=== PATIENT | male | born 1960 | race Two or more races ===

== ENCOUNTER 2024-05-08 10:57 | Emergency (ER) | payer OTHER ==
[~2024-05-08] VITALS: Ht 162.6 cm; Wt 82.5 kg
--- NOTE | 2024-05-08 12:03 | DVH ---
CLINICAL HISTORY: 64 years old, Male; LEFT RIB. No other clinical information provided. TECHNIQUE: AP and oblique views of the left ribs were obtained. COMPARISON: None FINDINGS: No acute fracture identified in the left ribs. No pneumothorax, pleural effusion, or other abnormality identified in the left alonso thorax. Left lung appears clear. IMPRESSION: No evidence of acute fracture in the left ribs.
[2024-05-08 12:06] VITALS: BP 144/73; PULSE 94; RESP 15; TEMP 99.6; O2SAT 96
--- NOTE | 2024-05-08 12:12 | DVH ---
XY L HUMERUS XRAY, INDICATION: LEFT ARM TECHNICAL DATA: Frontal and lateral views were obtained of the left humerus. COMPARISON: None FINDINGS: There is no osseous abnormality. Soft tissues are normal. IMPRESSION: No acute fracture or dislocation.
[2024-05-08] MEDS ORDERED: IBUP1TAB5 PO (13:05)
--- NOTE | 2024-05-08 13:07 | ED.PDOC ---
Musculoskeletal HPI Comments This is a 64-year-old male who fell on Thursday off the ladder while he was working in the garage. He landed on the left side on his left ribs and left upper arm. Patient states there was no loss of consciousness at all. Mainly complains of pain when moving his left arm as the rib pain is just under his left axilla. Chief Complaint: Upper Extremity Time Seen by MD: 11:48 Primary Care Provider: ROLAND STARKEY Reviewed Notes: Nurses Notes, Medications, Allergies Allergies: Coded Allergies: NO KNOWN ALLERGIES (Unverified , 05/08/24) Information Source: Patient Mode of Arrival: Ambulatory Past Medical History PAST MEDICAL HISTORY: DM Surgical History (Other): Neck surgery Family History Family History: Reviewed,noncontributory to illness Social History Smoker: Non-Smoker Alcohol: Occasionally Drugs: Denies Drug Use Lives In: Home Respiratory: reports: others (rib pain left side) Musculoskeletal: reports: others (left arm pain) Physical Exam General Appearance: No Apparent Distress, Normal HEENT: Normal ENT Inspection, PERRL/EOMI, Pharynx Normal, TMs Normal Neck: Non-Tender Respiratory: Lungs Clear, Normal Breath Sounds, Other (Pain on the left anterior ribs no bruising) Cardiovascular: Regular Rate/Rhythm Breast Exam: Deferred Gastrointestinal: Non Tender, Normal Bowel Sounds Genitalia: Deferred Pelvic: Deferred Rectal: Deferred Extremities: Normal inspection, Tender (Left upper arm) Neurologic: Alert, No Motor Deficits, Normal Mood Cerebellar Function: Normal Reflexes: NOT DONE Skin: Dry, Warm Lymphatic: No Adenopathy Was a procedure done? Was a procedure done?: No Differential Diagnosis EXT Differential Diagnosis: Cellulitis, Compartment Syndrome, Fracture X-Ray, Labs, Meds, VS Vital Signs Date Time Temp Pulse Resp B/P (MAP) Pulse Ox O2 Delivery O2 Flow Rate FiO2 05/08/24 12:06 94 15 96 Room Air 05/08/24 12:06 99.6 94 15 144/73 (96) 96 99.6 05/08/24 11:10 99.6 94 15 144/73 (96) 96 X-Ray, Labs, Meds, VS Comment Patient seen and examined by me. Patient's x-rays were done in triage was do not show any fracture. I stressed the importance of him to to continue to take deep breaths to help with pain in his ribs and also to prevent him from getting pneumonia. I will send him home on some strong anti-inflammatories.. ORDERING PHYSICIAN: TRISH FRY MD PROCEDURE(s): LRIBS - L RIB X RAY REASON: LEFT RIB ORDER NUMBER(s): [id number], ACCESSION NUMBER(s): [id number] CLINICAL HISTORY: 64 years old, Male; LEFT RIB. No other clinical information provided. TECHNIQUE: AP and oblique views of the left ribs were obtained. COMPARISON: None FINDINGS: No acute fracture identified in the left ribs. No pneumothorax, pleural effusion, or other abnormality identified in the left alonso thorax. Left lung appears clear. IMPRESSION: No evidence of acute fracture in the left ribs. RING PHYSICIAN: TRISH FRY MD PROCEDURE(s): LHUM - L HUMERUS XRAY REASON: LEFT ARM ORDER NUMBER(s): [id number], ACCESSION NUMBER(s): [id number] XY L HUMERUS XRAY, INDICATION: LEFT ARM TECHNICAL DATA: Frontal and lateral views were obtained of the left humerus. COMPARISON: None FINDINGS: There is no osseous abnormality. Soft tissues are normal. IMPRESSION: No acute fracture or dislocation. Time of 1ST Reevaluation: 13:02 Reevaluation 1ST: Improved Patient Education/Counseling: Diagnosis, Treatment, Prognosis, Need For Follow Up Family Education/Counseling: No Family Present Departure 1 Departure Time of Disposition: 13:02 Impression: Primary Impression: Contusion of rib on left side Additional Impression: Contusion of left arm Disposition: 01 HOME / SELF CARE / HOMELESS Condition: Good Additional Instructions: It is normal for you to have soreness in your arm and then your left ribs. You have no broken bones Please take the anti-inflammatories as directed this will help your pain Continue to take deep breaths to prevent getting a respiratory infection Move your left arm for prevent it from becoming stiff e-Prescriptions Ibuprofen Micronized (Ibuprofen) 600 Mg Tab 600 MG PO Q6HPRN PRN for 5 Days, #20 TAB Prov: KYREE DAUGHERTYP 05/08/24 Discharged With: Self Critical Care Note Critical Care Time?: No Stability Stability form required: KYREE Heredia May 08, 2024 13:07
== END 2024-05-08 13:07 | disposition home or self-care (01) ==
LOC: ER 10:57
DX: S40.022A Contusion of left upper arm, initial encounter (principal); S20.212A Contusion of left front wall of thorax, initial encounter; E11.9 Type 2 diabetes mellitus without complications; Z98.890 Other specified postprocedural states; W11.XXXA Fall on and from ladder, initial encounter; Y93.89 Activity, other specified; Y92.89 Other specified places as the place of occurrence of the external cause; Y99.8 Other external cause status
CPT/HCPCS: 71101; 73060

== ENCOUNTER → 2024-07-15 | Day surgery (SDC) | payer OTHER ==
[2024-07-13 15:07] LABS: Basophils # (auto) 0.1 10 ^3/uL (0-0.2); Basophils % (auto) 1.4 % (0.0-2.0); Eosinophils # (auto) 0.6 10 ^3/uL (0-0.8); Eosinophils % (auto) 6.9 % (0.0-7.0); Hematocrit 44.1 % (41.0-53.0); Hemoglobin 15.2 g/dL (13.5-17.5); Mean Corpuscular Hemoglobin 29.1 pg (28.0-32.0); Mean Corpuscular Hgb Conc. 34.5 g/dL (32.0-36.0); Mean Corpuscular Volume 84.5 fL (80.0-100.0); Monocytes % (auto) 11.9 % (0.0-12.0); Neutrophils # (auto) 4.4 10 ^3/uL (1.6-8.6); Neutrophils % (auto) 54.8 % (37.0-80.0); Nucleated Red Blood Cells % 0.1 %; Platelet Count (auto) 215 10^3/uL (140-450); Red Blood Cells 5.22 10^6/uL (4.5-5.90); Red Cell Distribution Width 13.5 % (11.8-14.3)
[2024-07-13 15:37] LABS: INR 0.97 (0.9-1.15); Partial Thromboplastin Time 25.6 SEC (24.5-34.5); Prothrombin Time 10.3 sec (9.3-11.8)
[2024-07-13 16:18] LABS: Alanine Aminotransferase 26 U/L (7-40); Albumin 4.6 g/dL (3.2-4.8); Alkaline Phosphatase 92 U/L (46-116); Anion Gap 8 (5-15); Aspartate Aminotransferase 25 U/L (13-40); BUN/Creatinine Ratio 13.7 (10.0-20.0); Bilirubin, Total 0.4 mg/dL (0.2-1.0); Blood Urea Nitrogen 13 mg/dL (9-23); Calcium 9.6 mg/dL (8.7-10.4); Carbon Dioxide 26 mmol/L (20-31); Chloride 106 mmol/L (98-107); Glucose 124 mg/dL (74-106); Potassium 3.7 mmol/L (3.5-5.1); Sodium 140 mmol/L (136-145)
[~2024-07-15] VITALS: Ht 162.6 cm; Wt 81.6 kg
[~2024-07-15] MED LIST: ACYC400T16 PA; ATOR-507 PO; CHOLCAP4 PO; IBUP-1454 PO; OMEP20TA PO; SODIUM CHLORIDE LOCK 10 ML ONE
[2024-07-15 10:42] VITALS: PULSE 73; RESP 19; O2SAT 96
[2024-07-15] MEDS: fentaNYL CITRATE 100 MCG/2 ML VL ONE (10:47)
[2024-07-15] MEDS: MIDAZOLAM HCL 5 MG/ML-1ML VIAL ONE (10:47)
[2024-07-15] MEDS: diphenhdrAMINE HCL 50 MG/1 ML VL ONE (10:47)
[2024-07-15 11:08] VITALS: PULSE 74; RESP 15; O2SAT 98
--- NOTE | 2024-07-15 11:10 | DVHOP2 ---
Operative Report DATE OF OPERATION: 07/15/24 PROCEDURE: Colonoscopy colonoscopy with snare polypectomy. PREOPERATIVE INDICATION: The patient is a 64 -year-old male undergoing colonoscopy for colon cancer screening POSTOPERATIVE DIAGNOSES: 1. 5-6 mm benign-appearing rectal polyp was seen and removed via hot snare polypectomy 2. There was a 2-3 mm benign-appearing descending colon polyp that was seen and removed by cold biopsy forceps 3. There was mild sigmoid diverticular disease with sigmoid muscular hypertrophy and diverticular associated sigmoiditis 4. Trace internal hemorrhoids otherwise normal examination up to the cecum and terminal ileum PROCEDURE PERFORMED BY: Russ Stubbs M.D. SCOPE: Olympus videocolonoscope. ASA CLASS: 2. PREOPERATIVE MEDICATIONS: Versed 3 mg, Fentanyl 75 mcg, Benadryl 50 mg PROCEDURE IN DETAIL: After obtaining an informed consent, the patient was placed on left lateral decubitus position. He was then sedated with the above medications. A rectal examination was performed that was normal. The colonoscope was then passed through the anus into the rectosigmoid and through the descending, transverse, and ascending colon up to the cecum with visualization of the appendiceal orifice, base of the cecum and the ileocecal valve. The colonoscope was then withdrawn. The distal 5-10 cm of the terminal ileum were normal No masses or colitis were seen. Patient had a 2-3 mm benign-appearing descending colon polyp which was removed by cold biopsy forceps There was mild sigmoid diverticular disease with sigmoid muscular color hypertrophy and associated sigmoiditis On retroflexion he had trace internal hemorrhoids. In the rectum there was a 5- 6 mm benign-appearing polyp that was seen and removed by hot snare polypectomy The perianal area was examined and the patient had a small cystic lesion at the right buttock which appeared to be benign and not draining and there was no induration or fluctuation The patient tolerated the procedure well without difficulty. WITHDRAWAL TIME: 8 minutes QUALITY OF THE PREP: Amelia Bowel Prep score: 9. COMPLICATIONS : None SPECIMENS: Descending colon polyp Rectal polyp DISPOSITION: Stable D/C to home PLAN: 1. Repeat colonoscopy base on biopsy result likely in 3-5 years 2. Resume GI soft diet advance as tolerated 3. Increase fluid and fiber intake 4. Outpatient follow up with me in 4-6 weeks to review results and discuss f urther management 5. Hold aspirin and NSAIDs for one week RUSS STUBBS MD Jul 15, 2024 11:10
[2024-07-15 12:03] VITALS: BP 113/66; PULSE 73; RESP 14; O2SAT 100
== END | disposition home or self-care (01) ==
LOC: GI 09:00
PROVIDERS: ATTEND Internal Medicine Gastroenterology
DX: Z12.11 Encounter for screening for malignant neoplasm of colon (principal); D12.8 Benign neoplasm of rectum; D12.4 Benign neoplasm of descending colon; K57.30 Diverticulosis of large intestine without perforation or abscess without bleeding; K52.9 Noninfective gastroenteritis and colitis, unspecified; K21.9 Gastro-esophageal reflux disease without esophagitis; E78.00 Pure hypercholesterolemia, unspecified; Z79.899 Other long term (current) drug therapy; Z98.890 Other specified postprocedural states
CPT/HCPCS: 36415; 45380; 45385; 80053; 85025; 85610; 85730; 88305; J1200; J2250; J3010; J7030; 99152

== ENCOUNTER 2024-07-21 14:13 | Inpatient (IN) | payer OTHER ==
[~2024-07-21] VITALS: Ht 162.6 cm; Wt 80.7 kg
[2024-07-21 11:22] VITALS: BP 125/76; PULSE 117; RESP 12; TEMP 97.7; O2SAT 99
[~2024-07-21 14:13] MED LIST changes: -SODIUM CHLORIDE LOCK 10 ML ONE
--- NOTE | 2024-07-21 14:31 | ED.PDOC ---
GI ASSESSMENT HPI Comments 64 y/o M, presents to the ED for CC of abdominal pain. Patient states, that he has been experiencing RLQ abdominal pain x5days. Patient endorses on, having a colonoscopy on (07/15/24); symptoms have worsened since procedure. Patient states current pain is a 9/10. Patient denies dysuria, hematuria, diarrhea, back pain, or vomiting. No other symptoms or modifying factors at this time. Time Seen by MD: 14:25 Primary Care Provider: ROLAND STARKEY Reviewed Notes: Nurses Notes, Medications, Allergies Allergies: Coded Allergies: NO KNOWN ALLERGIES (Unverified , 05/08/24) Home Meds Reported Medications Ibuprofen (Ibuprofen) 600 Mg Tab, 600 MG PO PRN, TAB 07/14/24 Acyclovir (ZOVIRAX TABLET) 400 Mg Tb, 800 MG PA PRN, TAB 07/14/24 Atorvastatin Calcium (Lipitor) 40 Mg Tab, 40 MG PO DAILY, TAB 07/14/24 Cholecalciferol (D3-50) 50,000 Unit Cap, 17704 UNIT PO Q7D, CAP 07/14/24 Omeprazole (Gnp Omeprazole) 20 Mg Tab, 20 MG PO DAILY, TAB 07/14/24 Information Source: Patient Mode of Arrival: Ambulatory Timing: Days Duration: Since onset Prehospital treatment: None Quality: None Vomitus: None Stool: Normal Severity: Moderate Recent: None Recent Hx of: None Pain Location: RLQ Modifying Factors: Nothing Associated sign and symptoms: Nausea Past Medical History PAST MEDICAL HISTORY: DM Surgical History: Denies all surgeries Family History Family History: Reviewed,noncontributory to illness Social History Smoker: Non-Smoker Alcohol: Occasionally Drugs: Denies Drug Use Lives In: Home Constitutional: denies: chills, diaphoresis, fatigue, fever, malaise, sweats, weakness, others EENTM: denies: blurred vision, double vision, ear bleeding, ear discharge, ear drainage, ear pain, ear ringing, eye pain, eye redness, hearing loss, mouth pain, mouth swelling, nasal discharge, nose bleeding, nose congestion, nose pain, photophobia, tearing, throat pain, throat swelling, voice changes, others Respiratory: denies: cough, hemoptysis, orthopnea, SOB at rest, shortness of breath, SOB with excertion, stridor, wheezing, others Cardiovascular: denies: chest pain, dizzy spells, diaphoresis, Dyspnea on exertion, edema, irregular heart beat, left arm pain, lightheadedness, palpitations, PND, syncope, others Gastrointestinal: reports: abdominal pain, nausea; denies: abdomen distended, blood streaked bowels, constipated, diarrhea, dysphagia, difficulty swallowing, hematemesis, melena, poor appetite, poor fluid intake, rectal bleeding, rectal pain, vomiting, others Genitourinary: denies: burning, dysuria, flank pain, frequency, hematuria, incontinence, penile discharge, penile sore, pain, testicle pain, testicle swelling, urgency, others Neurological: denies: dizziness, fainting, headache, left sided numbness, left sided weakness, numbness, paresthesia, pre-existing deficit, right sided numbness, right sided weakness, seizure, speech problems, tingling, tremors, weakness, others Musculoskeletal: denies: back pain, gout, joint pain, joint swelling, muscle pain, muscle stiffness, neck pain, others Integumetry: denies: bruises, change in color, change in hair/nails, dryness, laceration, lesions, lumps, rash, wounds, others Allergic/Immunocompromised: denies: Difficulty Healing, Frequent Infections, Hives, Itching, others Hematologic/Lymphatic: denies: anemia, blood clots, easy bleeding, easy bruising, swollen glands, others Endocrine: denies: excessive hunger, excessive sweating, excessive thirst, excessive urination, flushing, intolerance to cold, intolerance to heat, unexplained weight gain, unexplained weight loss, others Psychiatric: denies: anxiety, bipolar disorder, depression, hopeless, panic disorder, schizophrenia, sleepless, suicidal, others All Other Systems: Reviewed and Negative Physical Exam General Appearance: Moderate Distress HEENT: Normal ENT Inspection, Pharynx Normal, TMs Normal Neck: Full Range of Motion, Non-Tender, Normal, Normal Inspection Respiratory: Chest Non-Tender, Lungs Clear, No Accessory Muscle Use, No Respiratory Distress, Normal Breath Sounds Cardiovascular: No Edema, No JVD, No Murmur, No Gallop, Normal Peripheral Pulses, Regular Rate/Rhythm Breast Exam: Deferred Gastrointestinal: Diffuse, No Organomegaly, No Pulsatile Mass, Normal Bowel Sounds, Soft, Tenderness Genitalia: Deferred Pelvic: Deferred Rectal: Deferred Extremities: No calf tenderness, Normal capillary refill, Normal inspection, Normal range of motion, Non-tender, No pedal edema Musculoskeletal : Apperance: Normal 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 Was a procedure done?: No GI differential Dx Differential Diagnosis: Cholangitis, Cholecystitis, Constipation, Gastritis/PUD, Gastroenteritis, Urolithiasis, Electrolyte Imbalance, Food Poisoning, Bacterial, Viral X-Ray, Labs, Meds, VS Vital Signs Date Time Temp Pulse Resp B/P (MAP) Pulse Ox O2 Delivery O2 Flow Rate FiO2 07/21/24 16:03 97 16 117/71 07/21/24 15:11 24 95 Room Air* 0 21 07/21/24 15:11 99.1 109 24 117/71 (86) 95 99.1 07/21/24 14:43 123 07/21/24 14:38 123 07/21/24 14:35 99.3 130 20 129/83 (98) 96 Lab Test 07/21/24 15:07 07/21/24 14:40 Range/Units White Blood Count 10.1 4.4-10.8 10^3/uL Red Blood Count 5.27 4.5-5.90 10^6/uL Hemoglobin 15.2 13.5-17.5 g/dL Hematocrit 44.4 41.0-53.0 % Mean Corpuscular Volume 84.3 80.0-100.0 fL Mean Corpuscular Hemoglobin 28.8 28.0-32.0 pg Mean Corpuscular Hemoglobin Concent 34.1 32.0-36.0 g/dL Red Cell Distribution Width 13.3 11.8-14.3 % Platelet Count 243 140-450 10^3/uL Mean Platelet Volume 8.3 6.9-10.8 fL Neutrophils (%) (Auto) 64.3 37.0-80.0 % Lymphocytes (%) (Auto) 18.5 10.0-50.0 % Monocytes (%) (Auto) 13.1 H 0.0-12.0 % Eosinophils (%) (Auto) 2.8 0.0-7.0 % Basophils (%) (Auto) 1.3 0.0-2.0 % Neutrophils # (Auto) 6.5 1.6-8.6 10 ^3/uL Lymphocytes # (Auto) 1.9 0.4-5.4 10 ^3/uL Monocytes # (Auto) 1.3 0-1.3 10 ^3/uL Eosinophils # (Auto) 0.3 0-0.8 10 ^3/uL Basophils # (Auto) 0.1 0-0.2 10 ^3/uL Nucleated Red Blood Cells 0.0 % Sodium Level 136 136-145 mmol/L Potassium Level 3.8 3.5-5.1 mmol/L Chloride Level 103 98-107 mmol/L Carbon Dioxide Level 28 20-31 mmol/L Anion Gap 5 5-15 Blood Urea Nitrogen 11 9-23 mg/dL Creatinine 0.80 0.700-1.30 mg/dL Glomerular Filtration Rate Calc 100 >90 mL/min BUN/Creatinine Ratio 13.8 10.0-20.0 Serum Glucose 117 H 74-106 mg/dL Calcium Level 10.0 8.7-10.4 mg/dL Total Bilirubin 0.5 0.2-1.0 mg/dL Aspartate Amino Transferase (AST) 28 13-40 U/L Alanine Aminotransferase (ALT) 25 7-40 U/L Alkaline Phosphatase 94 46-116 U/L Total Protein 7.2 5.7-8.2 g/dL Albumin 4.7 3.2-4.8 g/dL Lipase 36 12-53 U/L Urine Color Colorless Yellow Urine Clarity Clear Clear Urine pH 6.5 5.0-9.0 Urine Specific Breaks 1.006 1.001-1.035 Urine Protein Negative Negative Urine Ketones Negative Negative Urine Blood Negative Negative /uL Urine Nitrite Negative Negative Urine Bilirubin Negative Negative Urine Urobilinogen Normal Negative mg/dL Urine Leukocyte Esterase Negative Negative /uL Urine RBC <1 0 - 3 /hpf Urine Microscopic WBC 0-3 /HPF Urine Squamous Epithelial Cells None seen <5 /hpf Urine Bacteria None seen None Seen /hpf Urine Glucose Normal Normal mg/dL Current Medications Medications (Trade) Dose Ordered Sig/Uday Route Start Time Stop Time Status Last Admin Morphine Sulfate 4 mg ONCE ONCE IV 07/21/24 16:00 07/21/24 16:01 DC 07/21/24 16:03 Ondansetron HCl (Zofran) 4 mg ONCE ONCE IV 07/21/24 16:00 07/21/24 16:01 DC 07/21/24 15:58 CT ABD PEL: Findings: Lung Bases: No acute or significant lung base finding. Normal heart size. No pleural or pericardial effusion. Liver: The liver is normal in size. No focal lesions. Heterogeneous appearance of the hepatic parenchyma suggest repeat study with IV contrast or ultrasound of the liver. Gallbladder and Biliary Tree: Unremarkable Spleen: Unremarkable Pancreas: The pancreas is grossly normal in appearance. Adrenal Glands: Unremarkable Kidneys: Kidneys are grossly normal without calculi or hydronephrosis. Bladder: Grossly unremarkable for degree of distention. Bowel: The stomach is grossly normal in appearance. Small bowel and colon are normal in caliber and distribution. Mucosal thickening throughout the colon may be secondary to its decompressed state or colitis. The appendix is not v isualized; however, no secondary findings of acute appendicitis identified. Ascites: Absent Lymphadenopathy: No mesenteric, retroperitoneal or periportal lymphadenopathy. Abdominal Wall and Mesentery: Unremarkable. Vasculature: The visualized abdominal aorta is normal in size and caliber. Evaluation of abdominal and pelvic vessels is limited due to lack of intravenous contrast. Pelvic Organs: Unremarkable Musculoskeletal: No aggressive focal bony lesions, acute fractures or dislocation. Soft tissues: Unremarkable IMPRESSION: 1. Mucosal thickening throughout the colon may be secondary to its decompressed state or colitis. 2. Heterogeneous appearance to the liver parenchyma recommend repeat study with IV contrast or ultrasound of the liver. Radiation optimization: All CT scans at this facility use at least one of these dose optimization techniques: automated exposure control mA and/or kV adjustment per patient size (includes targeted exams where dose is matched to clinical indication) or iterative reconstruction. HS:Y ATED BY: JENNI JAIN Jr., DO DICTATED DATE/TIME: 07/21/24 1509 SIGNED BY: JENNI JAIN Jr., SIGNED DATE/TIME: 07/21/24 1502 CC: Patient has a CBC is within normal limits The chemistry panel is within normal limits The urine test is negative At this time, the patient continues to have abdominal pain The patient was given morphine 4 mg IV push for the pain The patient was given Zofran 4 mg IV push for the nausea The patient was being started on Flagyl in his being admitted with a diagnosis of acute abdominal pain unknown etiology Also intractable abdominal pain Images Reviewed?: Images reviewed and evaluated by me Time of 1ST Reevaluation: 14:55 Reevaluation 1ST: Unchanged Patient Education/Counseling: Diagnosis, Treatment, Prognosis Family Education/Counseling: No Family Present Additional Information - I reviewed the following notes from patient's past medical encounters: 05/08/24 DX: CONTUSION OF RIB ON LEFT SIDE - The following tests were ordered, and results were reviewed by me: CBC, CMP, LIPASE, URINALYSIS, CT ABD PEL - I reviewed and agreed with the following test results read by other provider: CT ABD PEL - I discussed treatments and results with medical personnel and: PATIENT Departure 1 Departure Time of Disposition: 17:31 Impression: Primary Impression: Intractable abdominal pain Additional Impression: Acute colitis Disposition: ADMITTED INPATIENT Admit to: Med Surg Condition: Fair Critical Care Note Critical Care Time?: No Stability Stability form required: Yes Unstable for transfer: ED Physician Assesment (Clinical assesment) Heart Score Heart Score: Heart Score Response (Comments) Value History N/A 0 EKG N/A 0 Age N/A 0 Risk Factors N/A 0 Troponin N/A 0 Total 0 I personally scribed for ZAKI ZELAYA MD ([email or web address]) on 07/21/24 at 14:31. Electronically submitted by Luna Bailey ([email or web address]). I personally scribed for ZAKI ZELAYA MD ([email or web address]) on 07/21/24 at 14:39. Electronically submitted by Luna Bailey ([email or web address]). I personally scribed for ZAKI ZELAYA MD ([email or web address]) on 07/21/24 at 14:43. Electronically submitted by Luna Bailey ([email or web address]). I personally scribed for ZAKI ZELAYA MD ([email or web address]) on 07/21/24 at 15:36. Electronically submitted by Luna Bailey ([email or web address]). ZAKI ZELAYA MD Jul 21, 2024 14:31
--- NOTE | 2024-07-21 15:06 | DVH ---
Exam: CT CT AB PEL WO CON-NO ORAL OR IV History: pain Comparison Study: None available at time of dictation. TECHNIQUE: Multidetector CT of the abdomen was performed from lung bases to pubic symphysis. Imaging was performed without IV contrast. Axial, coronal and sagittal multiplanar reformats were obtained fr om the axial data set by the technologist. Radiation Dose Information: CT Dose: CTDI volume is 9.85 mGy. Dose-length product is 555.7 mGy*cm FINDINGS: Evaluation of solid organs is limited due to lack of intravenous contrast use. Findings: Lung Bases: No acute or significant lung base finding. Normal heart size. No pleural or pericardial effusion. Liver: The liver is normal in size. No focal lesions. Heterogeneous appearance of the hepatic parenc hyma suggest repeat study with IV contrast or ultrasound of the liver. Gallbladder and Biliary Tree: Unremarkable Spleen: Unremarkable Pancreas: The pancreas is grossly normal in appearance. Adrenal Glands: Unremarkable Kidneys: Kidneys are grossly normal without calculi or hydronephrosis. Bladder: Grossly unremarkable for degree of distention. Bowel: The stomach is grossly normal in appearance. Small bowel and colon are normal in caliber and d istribution. Mucosal thickening throughout the colon may be secondary to its decompressed state or co litis. The appendix is not visualized; however, no secondary findings of acute appendicitis identifi ed. Ascites: Absent Lymphadenopathy: No mesenteric, retroperitoneal or periportal lymphadenopathy. Abdominal Wall and Mesentery: Unremarkable. Vasculature: The visualized abdominal aorta is normal in size and caliber. Evaluation of abdominal a nd pelvic vessels is limited due to lack of intravenous contrast. Pelvic Organs: Unremarkable Musculoskeletal: No aggressive focal bony lesions, acute fractures or dislocation. Soft tissues: Unremarkable IMPRESSION: 1. Mucosal thickening throughout the colon may be secondary to its decompressed state or colitis. 2. Heterogeneous appearance to the liver parenchyma recommend repeat study with IV contrast or ultras ound of the liver. Radiation optimization: All CT scans at this facility use at least one of these dose optimization te chniques: automated exposure control mA and/or kV adjustment per patient size (includes targeted exa ms where dose is matched to clinical indication) or iterative reconstruction. HS:Y
[2024-07-21 15:11] VITALS: RESP 24; O2SAT 95
[2024-07-21 15:20] LABS: Basophils # (auto) 0.1 10 ^3/uL (0-0.2); Basophils % (auto) 1.3 % (0.0-2.0); Eosinophils # (auto) 0.3 10 ^3/uL (0-0.8); Eosinophils % (auto) 2.8 % (0.0-7.0); Hematocrit 44.4 % (41.0-53.0); Hemoglobin 15.2 g/dL (13.5-17.5); Lymphocytes # (auto) 1.9 10 ^3/uL (0.4-5.4); Lymphocytes % (auto) 18.5 % (10.0-50.0); Mean Corpuscular Hemoglobin 28.8 pg (28.0-32.0); Mean Corpuscular Hgb Conc. 34.1 g/dL (32.0-36.0); Mean Corpuscular Volume 84.3 fL (80.0-100.0); Monocytes # (auto) 1.3 10 ^3/uL (0-1.3); Monocytes % (auto) 13.1 % (0.0-12.0); Neutrophils # (auto) 6.5 10 ^3/uL (1.6-8.6); Neutrophils % (auto) 64.3 % (37.0-80.0); Platelet Count (auto) 243 10^3/uL (140-450); Red Blood Cells 5.27 10^6/uL (4.5-5.90); Red Cell Distribution Width 13.3 % (11.8-14.3); White Blood Cell 10.1 10^3/uL (4.4-10.8)
[2024-07-21 15:21] LABS: Urine Bacteria None Seen /hpf (None Seen)
[2024-07-21 15:29] LABS: Urine Blood Negative /uL (Negative); Urine Clarity Clear (Clear); Urine Color Colorless (Yellow); Urine Protein, UAD Negative (Negative); Urine Specific Gravity 1.006 (1.001-1.035); Urine Squamous Epithelial Cell None Seen /hpf (<5); Urine Urobilinogen Normal (Negative); Urine pH 6.5 (5.0-9.0)
[2024-07-21 15:37] LABS: Alanine Aminotransferase 25 U/L (7-40); Albumin 4.7 g/dL (3.2-4.8); Alkaline Phosphatase 94 U/L (46-116); Anion Gap 5 (5-15); Aspartate Aminotransferase 28 U/L (13-40); BUN/Creatinine Ratio 13.8 (10.0-20.0); Bilirubin, Total 0.5 mg/dL (0.2-1.0); Blood Urea Nitrogen 11 mg/dL (9-23); Carbon Dioxide 28 mmol/L (20-31); Chloride 103 mmol/L (98-107); Lipase 36 U/L (12-53); Potassium 3.8 mmol/L (3.5-5.1); Sodium 136 mmol/L (136-145); Total Protein 7.2 g/dL (5.7-8.2)
[2024-07-21 15:38] LABS: Glucose 117 mg/dL (74-106)
[2024-07-21] MEDS: ONDANSETRON HCL 4 MG/2 ML VIAL IV ONE (15:58)
[2024-07-21] MEDS: MORPHINE SULFATE 4 MG/ML SYR/VIAL IV ONE (16:03)
[2024-07-21 19:30] VITALS: PULSE 99; RESP 11; O2SAT 95
[2024-07-21] MEDS ORDERED: ONDANSETRON HCL 4 MG/2 ML VIAL IV PRN (21:45)
[2024-07-21] MEDS ORDERED: ACETAMINOPHEN 325 MG TAB PO PRN (21:45)
[2024-07-21] MEDS ORDERED: NITROGLYCERIN 0.4 MG SL TAB SL PRN (21:45)
[2024-07-21] MEDS ORDERED: MORPHINE SULFATE INJ 2 MG/ml SYRG IV PRN ×2 (21:45)
--- NOTE | 2024-07-21 22:16 | DVHHPRES ---
History of Present Illness Resident Creating Document: NORA CONTRERAS RESIDENT History of Present Illness JOSE G TAFOYA is a 64-year-old male with a PMH of prediabetes mellitus presented to the ED with the chief complaints of lower abdominal pain since last Thursday. Patient underwent colonoscopy last Thursday later he felt soreness and mild discomfort which has been worsening, today moaning he woke up with a severe pain in right lower quadrant and then spread to of lower abdomen associated with constipation and nausea which prompted him to visit ED. patient had upcoming appointment next week with a GI doctor to discuss the colonoscopy result. On my assessment patient denies fever, diarrhea, chest pain, diaphoresis, recent travel, sick contacts and other acute associated symptoms. PMH: Pre DM PSH: Not significant Family history: Ovarian cancer in mother and MD in father Social history: Lives with the family. Denies smoking, alcohol and other drug abuse Allergies: No known allergies Home medications: Ibuprofen and Protonix Review of Systems Review of Systems Patient seen and examined at the bedside. Patient reported mild abdominal pain, reported no new complaints at this time. CT abdominal pelvis showed mucosal thickening so of colon likely decompression or colitis. Constitutional: No: Fever, Chills, Sweats, Weakness, Malaise, Other Eyes: No: Pain, Vision change, Conjunctivae inflammation, Eyelid inflammation, Other, Redness ENT: No: Ear pain, Ear discharge, Nose pain, Nose discharge, Nose congestion, Mouth pain, Mouth swelling, Throat pain, Throat swelling, Other Respiratory: No: Cough, Dry, Shortness of breath, SOB with excertion, Wheezing, Hemoptysis, Pleuritic Pain, Sputum, Wheezing, Other Cardiovascular: No: Chest Pain, Palpitations, Orthopnea, Paroxysmal Noc. Dyspnea, Edema, Lt Headedness, Other Gastrointestinal: Nausea, Abdominal Pain Genitourinary: No Dysuria, No Frequency, No Incontinence, No Hematuria, No Retention, No Other Musculoskeletal: No: other, neck pain, shoulder pain, arm pain, back pain, hand pain, leg pain, foot pain Skin: No: Rash, Lesions, Jaundice, Bruising, Other Neurological: No: Weakness, Numbness, Incoordination, Change in speech, Confusion, Seizures, Other Allergies: Coded Allergies: NO KNOWN ALLERGIES (Unverified , 05/08/24) Medications Current Medications Medications Dose Ordered Sig/Uday Route Start Time Stop Time Status Last Admin Dose Admin Sodium Chloride 1,000 ml @ 120 mls/hr Q8H20M IV 07/21/24 21:45 Ondansetron HCl 4 mg Q4HP PRN IV 07/21/24 21:45 Enoxaparin Sodium 40 mg DAILY SC 07/22/24 10:00 Acetaminophen 650 mg Q6HP PRN PO 07/21/24 21:45 Morphine Sulfate 2 mg Q4HPRN PRN IV 07/21/24 21:45 Nitroglycerin 0.4 mg Q5MINP PRN SL 07/21/24 21:45 Morphine Sulfate 2 mg Q30M PRN IV 07/21/24 21:45 Ceftriaxone Sodium 50 ml @ 100 mls/hr DAILY IV 07/21/24 22:15 UNV Metronidazole 100 ml @ 100 mls/hr DAILY IV 07/21/24 22:15 UNV Exam Vital Signs Vital Signs Date Time Temp Pulse Resp B/P (MAP) Pulse Ox O2 Delivery O2 Flow Rate FiO2 07/21/24 19:30 98.8 99 11 112/64 (80) 95 98.8 07/21/24 19:30 Room Air* 0 21 Exam Pt is lying on bed General Appearance: Alert, Oriented X3, Cooperative, Not in acute distress HEENT: Atraumatic, Mucous membranes moist/pink Respiratory: Clear to auscultation, Normal air movement, No added sounds Cardiovascular: Regular rate, Normal S1, Normal S2, No murmurs Abdominal: Right flank to right lower quadrant tenderness, Soft, no distention Extremities: No edema, Normal pulses, No tenderness/swelling Skin: No Significant rash, except past surgical scars Neuro: Normal speech, sensorimotor deficits none Psych/Mental Status: Mental status NL, Mood NL Nurse was there as sharperone during examination Labs/Xrays Labs Test 07/21/24 15:07 07/21/24 14:40 Range/Units White Blood Count 10.1 4.4-10.8 10^3/uL Red Blood Count 5.27 4.5-5.90 10^6/uL Hemoglobin 15.2 13.5-17.5 g/dL Hematocrit 44.4 41.0-53.0 % Mean Corpuscular Volume 84.3 80.0-100.0 fL Mean Corpuscular Hemoglobin 28.8 28.0-32.0 pg Mean Corpuscular Hemoglobin Concent 34.1 32.0-36.0 g/dL Red Cell Distribution Width 13.3 11.8-14.3 % Platelet Count 243 140-450 10^3/uL Mean Platelet Volume 8.3 6.9-10.8 fL Neutrophils (%) (Auto) 64.3 37.0-80.0 % Lymphocytes (%) (Auto) 18.5 10.0-50.0 % Monocytes (%) (Auto) 13.1 H 0.0-12.0 % Eosinophils (%) (Auto) 2.8 0.0-7.0 % Basophils (%) (Auto) 1.3 0.0-2.0 % Neutrophils # (Auto) 6.5 1.6-8.6 10 ^3/uL Lymphocytes # (Auto) 1.9 0.4-5.4 10 ^3/uL Monocytes # (Auto) 1.3 0-1.3 10 ^3/uL Eosinophils # (Auto) 0.3 0-0.8 10 ^3/uL Basophils # (Auto) 0.1 0-0.2 10 ^3/uL Nucleated Red Blood Cells 0.0 % Sodium Level 136 136-145 mmol/L Potassium Level 3.8 3.5-5.1 mmol/L Chloride Level 103 98-107 mmol/L Carbon Dioxide Level 28 20-31 mmol/L Anion Gap 5 5-15 Blood Urea Nitrogen 11 9-23 mg/dL Creatinine 0.80 0.700-1.30 mg/dL Glomerular Filtration Rate Calc 100 >90 mL/min BUN/Creatinine Ratio 13.8 10.0-20.0 Serum Glucose 117 H 74-106 mg/dL Calcium Level 10.0 8.7-10.4 mg/dL Total Bilirubin 0.5 0.2-1.0 mg/dL Aspartate Amino Transferase (AST) 28 13-40 U/L Alanine Aminotransferase (ALT) 25 7-40 U/L Alkaline Phosphatase 94 46-116 U/L Total Protein 7.2 5.7-8.2 g/dL Albumin 4.7 3.2-4.8 g/dL Lipase 36 12-53 U/L Urine Color Colorless Yellow Urine Clarity Clear Clear Urine pH 6.5 5.0-9.0 Urine Specific [place] 1.006 1.001-1.035 Urine Protein Negative Negative Urine Ketones Negative Negative Urine Blood Negative Negative /uL Urine Nitrite Negative Negative Urine Bilirubin Negative Negative Urine Urobilinogen Normal Negative mg/dL Urine Leukocyte Esterase Negative Negative /uL Urine RBC <1 0 - 3 /hpf Urine Microscopic WBC 0-3 /HPF Urine Squamous Epithelial Cells None seen <5 /hpf Urine Bacteria None seen None Seen /hpf Urine Glucose Normal Normal mg/dL Assessment/Plan Assessment/Plan # ? Acute colotis - CT abdominal pelvis showed mucosal thickening so of colon likely decompression or colitis. - currently on Rocephin and metronidazole - NPO for now then gradually advanced diet from tomorrow - Monoitor # Pre DM -pending HbA1c -monitor for now PUD PPX: Protonix VTE PPX: Lovenox Diet: NPO for now Goals of care discussed with the patient for more than 29 minutes: Full code status Case discussed with Dr. Hernandez, patient and nurse Plan discussed with: Patient My Orders Orders - NORA CONTRERAS RESIDENT Procedure Category Date Status Time Admit ADMIT 07/21/24 Transmitted 21:36 Allergies MARGY 07/21/24 In Process 21:36 Code Status CODE 07/21/24 Transmitted 21:36 Sodium Chloride 0.9% PHA 07/21/24 In Process 21:45 Ondansetron Hcl PHA 07/21/24 In Process (Zofran) 21:45 Enoxaparin Sodium PHA 07/22/24 In Process (Lovenox) 10:00 Complete Blood Count LAB 07/22/24 Verified 04:00 Comprehensive LAB 07/22/24 Verified Metabolic Panel 04:00 Npo (Nothing By DIET 07/22/24 Transmitted Mouth) Diet Breakfast Condition: Stable MARGY 07/21/24 In Process 21:36 Acetaminophen Tablet PHA 07/21/24 In Process (Tylenol Tablet) 21:45 Morphine Sulfate PHA 07/21/24 In Process Injection 21:45 Nitroglycerin PHA 07/21/24 In Process Sublingual (Ntrostat 21:45 Morphine Sulfate PHA 07/21/24 In Process Injection 21:45 Oxygen By Nasal RT 07/21/24 Transmitted Cannula 21:36 Stat Ekg For Chest MARGY 07/21/24 In Process Pain 21:36 Notify Md Of Changes MARGY 07/21/24 In Process From Base 21:36 Clip Loading Machine Feeder For MARGY 07/21/24 In Process 24 Hours 21:36 Emergency Dysrhythmia MARGY 07/21/24 In Process Protocol 21:36 Rhythm Strips Once MARGY 07/21/24 In Process Every Shift 21:36 Ceftriaxone 1gm/50ml PHA 07/21/24 Logged D5w (Rocephin) 22:15 Metronidazole PHA 07/21/24 Logged 500mg/100ml (Flagyl 22:15 Drug Screen LAB 07/21/24 Transmitted 22:12 PTPTT LAB 07/21/24 Transmitted 22:12 Magnesium LAB 07/21/24 Transmitted 22:12 Hemoglobin A1c LAB 07/21/24 Transmitted 22:12 B-Type Natriuretic LAB 07/21/24 Transmitted Peptide 22:12 Blood Alcohol LAB 07/21/24 Transmitted 22:12 Date of Service: Jul 21, 2024 Billing Provider: QI HERNANDEZ MD Common Visit Codes: [id number] INP/OBS CARE (HIGH) NORA CONTRERAS RESIDENT Jul 21, 2024 22:15 QI HERNANDEZ MD Jul 22, 2024 23:19
[2024-07-21 22:44] LABS: Blood Alcohol < 3.0 mg/dL (<10); INR 1.04 (0.9-1.15); Partial Thromboplastin Time 27.6 SEC (24.5-34.5)
[2024-07-21 23:16] VITALS: BP 125/76; PULSE 117; RESP 13; RESP 18; TEMP 97.7; O2SAT 93
[2024-07-21] MEDS: SODIUM CHLORIDE 0.9% 1,000 ML IV SCH (23:50)
[2024-07-21] MEDS: cefTRIAXone 1GM/50ML D5W 50 ML IV SCH (23:50)
[2024-07-22] VITALS (10 sets, daily range): BP systolic 95–129; BP diastolic 46–83; PULSE 84–102; RESP 14–19; TEMP 97.7–100.6; O2SAT 91–97
[2024-07-22] MEDS: metroNIDAZOLE 500MG/100ML 100 ML IV SCH (00:29)
[2024-07-22 07:05] LABS: Alanine Aminotransferase 23 U/L (7-40); Albumin 4.2 g/dL (3.2-4.8); Alkaline Phosphatase 84 U/L (46-116); Anion Gap 9 (5-15); Aspartate Aminotransferase 27 U/L (13-40); BUN/Creatinine Ratio 17.4 (10.0-20.0); Bilirubin, Total 0.6 mg/dL (0.2-1.0); Blood Urea Nitrogen 15 mg/dL (9-23); Calcium 9.3 mg/dL (8.7-10.4); Carbon Dioxide 28 mmol/L (20-31); Chloride 103 mmol/L (98-107); Glucose 98 mg/dL (74-106); Sodium 140 mmol/L (136-145); Total Protein 6.7 g/dL (5.7-8.2)
[2024-07-22 07:42] LABS: Basophils # (auto) 0.1 10 ^3/uL (0-0.2); Basophils % (auto) 0.9 % (0.0-2.0); Eosinophils # (auto) 0.3 10 ^3/uL (0-0.8); Hematocrit 42.8 % (41.0-53.0); Hemoglobin 14.7 g/dL (13.5-17.5); Lymphocytes # (auto) 1.5 10 ^3/uL (0.4-5.4); Lymphocytes % (auto) 17.9 % (10.0-50.0); Mean Corpuscular Hgb Conc. 34.4 g/dL (32.0-36.0); Mean Corpuscular Volume 84.5 fL (80.0-100.0); Monocytes # (auto) 1.4 10 ^3/uL (0-1.3); Neutrophils # (auto) 5.2 10 ^3/uL (1.6-8.6); Neutrophils % (auto) 61.2 % (37.0-80.0); Nucleated Red Blood Cells % 0.1 %; Platelet Count (auto) 220 10^3/uL (140-450); Red Blood Cells 5.06 10^6/uL (4.5-5.90); Red Cell Distribution Width 12.8 % (11.8-14.3); White Blood Cell 8.5 10^3/uL (4.4-10.8)
--- NOTE | 2024-07-22 09:19 | ECG ---
[facility] Test Date: 2024-07-21 Test Time: 14:38:27 Pat Name: JOSE G TAFOYA Department: ER Room: 0288 B Gender: M Senior Director Marketing: VAUGHN : 1960 Requested By: ZAKI ZELAYA Order Number: [id number] Reading MD: Amadeo Culver Measurements Intervals [place] Rate: 123 P: 76 ME: 145 QRS: -83 QRSD: 83 T: 74 QT: 302 QTc: 432 Interpretive Statements Sinus tachycardia Abnormal R-wave progression, late transition Inferior infarct, old Electronically Signed On 07-22-2024 9:27:35 PST by Amadeo Culver Please click the below link to view image of tracing.
[2024-07-22] MEDS: ENOXAPARIN SOD 40 MG/0.4 ML SYRINGE SC SCH (10:22)
--- NOTE | 2024-07-22 15:50 | DVHPNRES ---
Progress Note Date Seen: Jul 22, 2024 Resident Creating Document: TJ PALUMBO RESIDENT Medical Necessity Reason Pt with a Central, PICC or Fol: No Subjective Review of Systems 64 years old male with past medical history of prediabetes came with a complaint of abdominal pain. As per patient patient had patient colonoscopy 1 week before last Thursday. Following colostomy he has been having mild pain which got worse lately, crampy in nature, 8/10, intermittent, no relieving factor. Patient also reported having fever 2 days before but did not record her temperature at home. On further discussion patient also endorsed nausea and vomiting but no blood, clear liquid. Patient denied any joint pain or swelling, dysuria, pain no shortness a breath or eating unusual food. CT abdomen and pelvis revealed- Mucosal thickening throughout the colon may be secondary to its decompressed state or colitis. Heterogeneous appearance to the liver parenchyma recommend repeat study with IV contrast or ultrasound of the liver. PMH: Pre DM PSH: Not significant Family history: Ovarian cancer in mother and PA in father Social history: Lives with the family. Denies smoking, alcohol and other drug abuse Allergies: No known allergies Home medications: Ibuprofen and Protonix Patient was seen today at the bedside. Cardiovascular- deny acute chest pain or shortness of breath or cough or palpitation Respiratory denies cough or short of breath or wheezing Musculoskeletal-denies acute joint swelling or tenderness or redness Neurological- denies acute dysarthria, dysphagia, change in vision Psychiatry- denies depression or SI or HI Skin- denies acute rash or purpura Patient was seen today for clinical evaluation. Labs and chart reviewed. Patient complained of ongoing abdominal pain, did not have any bowel movement this morning. CT abdomen and pelvis revealed-Mucosal thickening throughout the colon may be secondary to its decompressed state or colitis. Heterogeneous appearance to the liver parenchyma recommend repeat study with IV contrast or ultrasound of the liver. Ultrasound of the liver for further evaluation and care. Objective vital signs Vital Sign Date Time Temp Pulse Resp B/P (MAP) Pulse Ox O2 Delivery O2 Flow Rate FiO2 07/22/24 12:33 98.7 89 18 119/70 (86) 91 98.7 07/22/24 08:15 Room Air* 0 21 Total Intake and Output 07/21/24 07/21/24 07/22/24 15:00 23:00 07:00 Intake Total 250 ml Output Total 450 ml Balance -200 ml medications Current Medications Medications Dose Ordered Sig/Uday Route Start Time Stop Time Status Last Admin Dose Admin Sodium Chloride 1,000 ml @ 120 mls/hr Q8H20M IV 07/21/24 21:45 07/22/24 15:16 120 MLS/HR Ondansetron HCl 4 mg Q4HP PRN IV 07/21/24 21:45 Enoxaparin Sodium 40 mg DAILY SC 07/22/24 10:00 07/22/24 10:22 40 MG Acetaminophen 650 mg Q6HP PRN PO 07/21/24 21:45 Morphine Sulfate 2 mg Q4HPRN PRN IV 07/21/24 21:45 Nitroglycerin 0.4 mg Q5MINP PRN SL 07/21/24 21:45 Morphine Sulfate 2 mg Q30M PRN IV 07/21/24 21:45 Ceftriaxone Sodium 50 ml @ 100 mls/hr DAILY@2100 IV 07/21/24 22:15 07/21/24 23:50 100 MLS/HR Metronidazole 100 ml @ 100 mls/hr DAILY@2200 IV 07/21/24 22:15 07/22/24 00:29 100 MLS/HR Examination General examination- awake, alert, oriented HEENT- PEERLA, no acute nasal discharge Cardiovascular- S1-S2 audible, rate and rhythm regular, no murmur Respiratory- CTAB, no wheeze or rhonchi Gastrointestinal- right lower abdomen tender +, bowel sound+. Nondistended Musculoskeletal-no acute joint swelling or tenderness or redness Lower extremity- no leg edema Neurological- cranial nerves intact, no acute dysarthria or dysphagia Psychiatry- denies depression or SI or HI Skin- no acute rash or purpura laboratory and microbiology Laboratory Tests 07/22/24 05:46 Test 07/22/24 05:46 Range/Units Serum Glucose 98 74-106 mg/dL Microbiology Date/Time Source Procedure Growth Status 07/22/24 01:54 Nose MRSA Screen - Final Complete Problem List/Assessment/Plan Problem List/Assessment/Plan Assessment Suspected sepsis due to acute colitis Intractable abdominal pain likely due to acute Colitis Acute colitis Prediabetes CT abdomen and pelvis revealed-Mucosal thickening throughout the colon may be secondary to its decompressed state or colitis. Heterogeneous appearance to the liver parenchyma recommend repeat study with IV contrast or ultrasound of the liver. Plan Continue ceftriaxone 1 g IV daily Continue metronidazole 500 mg IV q.8h Continue patient's 40 mg IV daily Continue pain medication as prescribed Continue IV fluid as prescribed Other medication as prescribed Goals of care/advance care planning; FULL CODE; discussed with the patient >15 minutes PUD prophylaxis: Pantoprazole DVT prophylaxis: Lovenox Plan discussed with Dr. Khalil , nursing staff, patient Total time spent on patient evaluation, chart review, assessment and plan, discussion discussion >31 minutes Plan discussed with: Patient Plan discussed with: Patient, Other (RN) My Orders My Orders Orders - TJ PALUMBO Procedure Category Date Status Time Fabrics And Material Cutter ORDERS 07/22/24 Transmitted 11:57 Transfer Orders XFER 07/22/24 Transmitted 11:57 Clear Liq Diet DIET 07/22/24 Transmitted Lunch Date of Service: Jul 22, 2024 Billing Provider: BALBINA HAYES MD Common Visit Codes: [id number] INP/OBS CARE(HIGH) TJ PALUMBO Jul 22, 2024 15:50 BALBINA HAYES MD Jul 25, 2024 00:15
[2024-07-22 18:14] LABS: Amphetamine Screen, Urine Neg (NEGATIVE); Barbiturate Scree,Urine Neg (NEGATIVE); Benzodiazephine Screen, Urine Neg (NEGATIVE); Cannabinoid Screen, Urine Neg (NEGATIVE); Cocaine Screen, Urine Neg (NEGATIVE); Opiate Scree,Urine Neg (NEGATIVE); Phencyclidine Screen, Urine Neg (NEGATIVE)
[2024-07-23 01:00] VITALS: BP 120/63; PULSE 81; RESP 19; TEMP 98.8; O2SAT 92
[2024-07-23 05:00] VITALS: BP 107/62; PULSE 86; RESP 20; TEMP 98.6; O2SAT 94
[2024-07-23 07:23] LABS: Anion Gap 7 (5-15); Carbon Dioxide 31 mmol/L (20-31); Chloride 102 mmol/L (98-107); Sodium 140 mmol/L (136-145)
[2024-07-23 07:24] LABS: Calcium 9.6 mg/dL (8.7-10.4)
[2024-07-23 07:29] LABS: BUN/Creatinine Ratio 10.3 (10.0-20.0); Blood Urea Nitrogen 10 mg/dL (9-23); Glucose 90 mg/dL (74-106); Magnesium 2.1 mg/dL (1.6-2.6)
[2024-07-23 07:38] LABS: Basophils # (auto) 0.1 10 ^3/uL (0-0.2); Basophils % (auto) 1.7 % (0.0-2.0); Eosinophils # (auto) 0.6 10 ^3/uL (0-0.8); Eosinophils % (auto) 6.5 % (0.0-7.0); Hematocrit 41.3 % (41.0-53.0); Hemoglobin 14.3 g/dL (13.5-17.5); Lymphocytes # (auto) 1.9 10 ^3/uL (0.4-5.4); Lymphocytes % (auto) 22.1 % (10.0-50.0); Mean Corpuscular Hemoglobin 29.2 pg (28.0-32.0); Mean Corpuscular Hgb Conc. 34.6 g/dL (32.0-36.0); Mean Corpuscular Volume 84.4 fL (80.0-100.0); Monocytes # (auto) 1.1 10 ^3/uL (0-1.3); Monocytes % (auto) 13.4 % (0.0-12.0); Neutrophils # (auto) 4.7 10 ^3/uL (1.6-8.6); Neutrophils % (auto) 56.3 % (37.0-80.0); Nucleated Red Blood Cells % 0.1 %; Platelet Count (auto) 227 10^3/uL (140-450); Red Blood Cells 4.89 10^6/uL (4.5-5.90); Red Cell Distribution Width 12.7 % (11.8-14.3); White Blood Cell 8.4 10^3/uL (4.4-10.8)
[2024-07-23 08:00] VITALS: O2SAT 96
[2024-07-23 09:00] VITALS: BP 132/72; PULSE 78; RESP 18; TEMP 97.9; O2SAT 92
--- NOTE | 2024-07-23 12:51 | DVHDSRES ---
Discharge Summary Date of Admission Resident Creating Document: TJ PALUMBO Jul 21, 2024 at 21:36 Date of Discharge: Jul 23, 2024 Admitting Diagnosis Intractable abdominal pain and nausea and vomit Labs/Diagnostic Data: Laboratory Results Test 07/23/24 06:09 07/22/24 17:45 07/22/24 05:46 07/21/24 22:22 White Blood Count 8.4 10^3/uL (4.4-10.8) Red Blood Count 4.89 10^6/uL (4.5-5.90) Hemoglobin 14.3 g/dL (13.5-17.5) Hematocrit 41.3 % (41.0-53.0) Mean Corpuscular Volume 84.4 fL (80.0-100.0) Mean Corpuscular Hemoglobin 29.2 pg (28.0-32.0) Mean Corpuscular Hemoglobin Concent 34.6 g/dL (32.0-36.0) Red Cell Distribution Width 12.7 % (11.8-14.3) Platelet Count 227 10^3/uL (140-450) Mean Platelet Volume 8.3 fL (6.9-10.8) Neutrophils (%) (Auto) 56.3 % (37.0-80.0) Lymphocytes (%) (Auto) 22.1 % (10.0-50.0) Monocytes (%) (Auto) 13.4 % (0.0-12.0) Eosinophils (%) (Auto) 6.5 % (0.0-7.0) Basophils (%) (Auto) 1.7 % (0.0-2.0) Neutrophils # (Auto) 4.7 10 ^3/uL (1.6-8.6) Lymphocytes # (Auto) 1.9 10 ^3/uL (0.4-5.4) Monocytes # (Auto) 1.1 10 ^3/uL (0-1.3) Eosinophils # (Auto) 0.6 10 ^3/uL (0-0.8) Basophils # (Auto) 0.1 10 ^3/uL (0-0.2) Nucleated Red Blood Cells 0.1 % Sodium Level 140 mmol/L (136-145) Potassium Level 4.0 mmol/L (3.5-5.1) Chloride Level 102 mmol/L (98-107) Carbon Dioxide Level 31 mmol/L (20-31) Anion Gap 7 (5-15) Blood Urea Nitrogen 10 mg/dL (9-23) Creatinine 0.97 mg/dL (0.700-1.30) Glomerular Filtration Rate Calc 88 mL/min (>90) BUN/Creatinine Ratio 10.3 (10.0-20.0) Serum Glucose 90 mg/dL (74-106) Calcium Level 9.6 mg/dL (8.7-10.4) Magnesium Level 2.1 mg/dL (1.6-2.6) Urine Opiates Screen Neg (NEGATIVE) Urine Fentanyl Screen Neg (NEGATIVE) Urine Barbiturates Screen Neg (NEGATIVE) Urine Phencyclidine Screen Neg (NEGATIVE) Urine Amphetamines Screen Neg (NEGATIVE) Urine Benzodiazepines Screen Neg (NEGATIVE) Urine Cocaine Screen Neg (NEGATIVE) Urine Cannabinoids Screen Neg (NEGATIVE) Total Bilirubin 0.6 mg/dL (0.2-1.0) Aspartate Amino Transferase (AST) 27 U/L (13-40) Alanine Aminotransferase (ALT) 23 U/L (7-40) Alkaline Phosphatase 84 U/L (46-116) Total Protein 6.7 g/dL (5.7-8.2) Albumin 4.2 g/dL (3.2-4.8) Prothrombin Time 11.0 sec (9.3-11.8) Prothrombin Time INR 1.04 (0.9-1.15) Activated Partial Thromboplast Time 27.6 SEC (24.5-34.5) Hemoglobin A1c 5.5 % A1C (<5.7) B-Type Natriuretic Peptide 4.36 pg/mL (0-100) Plasma/Serum Blood Alcohol < 3.0 mg/dL (<10) Test 07/21/24 15:07 07/21/24 14:40 Lipase 36 U/L (12-53) Urine Color Colorless (Yellow) Urine Clarity Clear (Clear) Urine pH 6.5 (5.0-9.0) Urine Specific Dumont 1.006 (1.001-1.035) Urine Protein Negative (Negative) Urine Ketones Negative (Negative) Urine Blood Negative /uL (Negative) Urine Nitrite Negative (Negative) Urine Bilirubin Negative (Negative) Urine Urobilinogen Normal mg/dL (Negative) Urine Leukocyte Esterase Negative /uL (Negative) Urine RBC <1 /hpf (0 - 3) Urine Microscopic WBC /HPF (0-3) Urine Squamous Epithelial Cells None seen /hpf (<5) Urine Bacteria None seen /hpf (None Seen) Urine Glucose Normal mg/dL (Normal) Other Laboratory Tests 07/23/24 06:09 Brief Hx & Hospital Course: HPI-64 years old male with past medical history of prediabetes came with a complaint of abdominal pain. As per patient patient had patient colonoscopy 1 week before last Thursday. Following colostomy he has been having mild pain which got worse lately, crampy in nature, 01/15, intermittent, no relieving factor. Patient also reported having fever 2 days before but did not record her temperature at home. On further discussion patient also endorsed nausea and vomiting but no blood, clear liquid. Patient denied any joint pain or swelling, dysuria, pain no shortness a breath or eating unusual food. CT abdomen and pelvis revealed-Mucosal thickening throughout the colon may be secondary to its decompressed state or colitis. Heterogeneous appearance to the liver parenchyma recommend repeat study with IV contrast or ultrasound of the liver. Hospital course-patient came to the ER due to intractable abdominal pain and nausea and vomiting. Patient was admitted to the hospital due to intractable abdominal pain likely due to acute colitis. CT abdomen and pelvis revealed- Mucosal thickening throughout the colon may be secondary to its decompressed state or colitis. Heterogeneous appearance to the liver parenchyma recommend repeat study with IV contrast or ultrasound of the liver. Patient was treated conservatively with IV antibiotic ceftriaxone and metronidazole. Patient's symptom improved. Patient was tolerating diet well. Patient is being discharged home with a liquid diet for 1 week. Patient is being prescribed Augmentin 875 mg p.o. b.i.d. for 5 days. Patient was advised to follow up with the primary care physician in 1 week for further evaluation and care and further evaluation ofHeterogeneous appearance to the liver parenchyma. Patient's meds were sent to the pharmacy electronically. Patient was hemodynamically stable on discharge. Diagnosis Sepsis due to acute colitis Intractable abdominal pain likely due to acute Colitis Acute colitis Prediabetes Heterogeneous appearance to the liver parenchyma Plan Continue Augmentin 500 mg by mouth 2 times a day for 5 days Continue pantoprazole 40 mg daily Zofran 4 mg every 6 hours as needed Liquid diet for 1 week Please follow up with the primary care physician in 1 week for further evaluation and care Please request your primary care physician for further evaluation of- Heterogeneous appearance to the liver parenchyma Please follow up with your psychological science professor as per schedule OTC pain med Operations or Procedures [address] [address] Ph: [phone] DIAGNOSTIC IMAGING Diagnostic Imaging Report : [id number] Signed PATIENT: JOSE G TAFOYA ACCT: [id number] UNIT: [id number] : 1960 LOC: ER ROOM / BED: / AGE / SEX: 64 / M ADM STATUS: REG ER SERVICE [id number] ORDERING PHYSICIAN: ZAKI ZELAYA MD PROCEDURE(s): ABPL - CT AB PEL WO CON-NO ORAL OR IV REASON: pain ORDER NUMBER(s): [id number], ACCESSION NUMBER(s): [id number] Exam: CT CT AB PEL WO CON-NO ORAL OR IV History: pain Comparison Study: None available at time of dictation. TECHNIQUE: Multidetector CT of the abdomen was performed from lung bases to pubic symphysis. Imaging was performed without IV contrast. Axial, coronal and sagittal multiplanar reformats were obtained from the axial data set by the technologist. Radiation Dose Information: CT Dose: CTDI volume is 9.85 mGy. Dose-length product is 555.7 mGy*cm FINDINGS: Evaluation of solid organs is limited due to lack of intravenous contrast use. Findings: Lung Bases: No acute or significant lung base finding. Normal heart size. No pleural or pericardial effusion. Liver: The liver is normal in size. No focal lesions. Heterogeneous appearance of the hepatic parenchyma suggest repeat study with IV contrast or ultrasound of the liver. Gallbladder and Biliary Tree: Unremarkable Spleen: Unremarkable Pancreas: The pancreas is grossly normal in appearance. Adrenal Glands: Unremarkable Kidneys: Kidneys are grossly normal without calculi or hydronephrosis. Bladder: Grossly unremarkable for degree of distention. Bowel: The stomach is grossly normal in appearance. Small bowel and colon are normal in caliber and distribution. Mucosal thickening throughout the colon may be secondary to its decompressed state or colitis. The appendix is not visualized; however, no secondary findings of acute appendicitis identified. Ascites: Absent Lymphadenopathy: No mesenteric, retroperitoneal or periportal lymphadenopathy. Abdominal Wall and Mesentery: Unremarkable. Vasculature: The visualized abdominal aorta is normal in size and caliber. Evaluation of abdominal and pelvic vessels is limited due to lack of intravenous contrast. Pelvic Organs: Unremarkable Musculoskeletal: No aggressive focal bony lesions, acute fractures or dislocation. Soft tissues: Unremarkable IMPRESSION: 1. Mucosal thickening throughout the colon may be secondary to its decompressed state or colitis. 2. Heterogeneous appearance to the liver parenchyma recommend repeat study with IV contrast or ultrasound of the liver. Radiation optimization: All CT scans at this facility use at least one of these dose optimization techniques: automated exposure control mA and/or kV adjustment per patient size (includes targeted exams where dose is matched to clinical indication) or iterative reconstruction. HS:Y ATED BY: JENNI JAIN Jr., DO DICTATED DATE/TIME: 07/21/24 150 SIGNED BY: JENNI JAIN Jr., DO SIGNED DATE/TIME: 07/21/24 150 CC: Condition at Discharge: Stable Final Diagnosis/Problems List Sepsis due to acute colitis Intractable abdominal pain likely due to acute Colitis Acute colitis Prediabetes Heterogeneous appearance to the liver parenchyma Discharge Disposition: Home Discharge Instruct/Medications Follow Up/Referral: Please follow up with the primary care physician in 1 week for further evaluation and care Please request your primary care physician for further evaluation of-Heterogeneous appearance to the liver parenchyma Please follow up with your psychological science professor as per schedule OTC pain med Medications: Continue Augmentin 500 mg by mouth 2 times a day for 5 days Continue pantoprazole 40 mg daily Zofran 4 mg every 6 hours as needed Liquid diet for 1 week Please follow up with the primary care physician in 1 week for further evaluation and care Please request your primary care physician for further evaluation of-Heterogeneous appearance to the liver parenchyma Please follow up with your psychological science professor as per schedule OTC pain med Discharge Statement: "Patient was advised to return to the ER or call 911 if any headaches, dizziness, shortness of breath, chest pain, abdominal pain, bleeding, fevers, or worsening of medical condition. Patient was counseled about treatment plan, medications, possible side effects, patientverbalized understanding. All questions were answered to the best of my ability. This discharge took greater then 30 minutes in planning, reviewing documentation, counseling the patient, and discussing with other team members." ASSESSMENT ASSESSMENT Assessment Date of Service: Jul 23, 2024 Billing Provider: BALBINA HAYES MD Common Visit Codes: 95905-UXU/OBS DISCH DAY >30min TJ PALUMBO RESIDENT Jul 23, 2024 12:51 BALBINA HAYES MD Jul 25, 2024 00:37
[2024-07-23 13:00] VITALS: BP 118/61; PULSE 76; RESP 18; TEMP 97.8; O2SAT 92
[2024-07-23] MEDS ORDERED: PANT40T PO (14:14)
[2024-07-23] MEDS ORDERED: AMOX500T86 PO (14:14)
[2024-07-23] MEDS ORDERED: ZOFR4T PO (14:15)
[2024-07-23 14:34] VITALS: TEMP 36.6
[2024-07-25 08:48] LABS: Hepatitis B Surface Antigen Negative (Negative)
[2024-07-25 09:05] LABS: Hepatitis C Antibody Negative (Negative)
== END 2024-07-23 16:12 | disposition home or self-care (01) | DRG 872 ==
LOC: ER 14:13 → OVERFLOW 21:36 → WEST WING 23:14 → TELE-WESTW 07-23 02:32
PROVIDERS: ADMIT Student in an Organized Health Care Education/Training Program; ATTEND Student in an Organized Health Care Education/Training Program
DX: A41.9 Sepsis, unspecified organism (principal); K52.9 Noninfective gastroenteritis and colitis, unspecified; Z82.49 Family history of ischemic heart disease and other diseases of the circulatory system; R73.03 Prediabetes; Z79.899 Other long term (current) drug therapy
CPT/HCPCS: 36415; 74176; 80048; 80053; 80307; 80320; 81001; 83036; 83690; 83735; 83880; 85025; 85610; 85730; 86803; 87081; 87340; 93005; 96374; 96375; G0378; J2405; J3490

== ENCOUNTER 2024-09-01 10:38 | Emergency (ER) | payer OTHER ==
[~2024-09-01] VITALS: Ht 162.6 cm; Wt 77.4 kg
[~2024-09-01 10:38] MED LIST changes: +AMOX500T86 PO; -ATOR-507 PO; -CHOLCAP4 PO; -OMEP20TA PO; +PANT40T PO; +ZOFR4T PO
[2024-09-01 11:23] VITALS: BP 128/0; PULSE 116; RESP 20; TEMP 98.1; O2SAT 96
--- NOTE | 2024-09-01 11:28 | ED.PDOC ---
History of Present Illness(SKN HPI Comments A 64 YEAR OLD MALE PRESENTS TO THE ED WITH CHIEF COMPLAINT OF RASH AND COUGH. PATIENT REPORTS THAT HE HAS BEEN EXPERIENCING A FULL BODY RASH WITH HIVES AND ITCHINESS FOR THE PAST 3 DAYS ALONG WITH A COUGH FOR THE PAST 3 WEEKS. PATIENT RELAYS THAT HE HAS ONLY TAKEN SOME TYLENOL AND OTC MEDICATION, BUT IS UNSURE WHAT HAS CAUSED HIS RASH. PATIENT DENIES ANY FEVER, CHILLS, CHEST PAIN, SOB, N/V, OR DIZZINESS. NO OTHER SYMPTOMSREPORTED AT THIS TIME OF CARE. Chief Complaint: Rash Time Seen by MD: 11:24 Primary Care Provider: ROLAND STARKEY History of Present Illness: Nurses Notes, Medications, Allergies Allergies: Coded Allergies: NO KNOWN ALLERGIES (Unverified , 05/08/24) Home Meds Active Scripts Ondansetron Odt 4MG Tab (ZOFRAN PO) 4 Mg Tb, 4 MG PO Q6HP PRN for 7 Days, #28 TAB ODT TAB-DISSOLVE IN MOUTH, THEN SWALLOW Prov:TJ PALUMBO RESIDENT 07/23/24 Pantoprazole Sodium Sesquihydr (Pantoprazole Sodium) 40 Mg Tab, 40 MG PO DAILY for 30 Days, #30 TAB Prov:TJ PALUMBO RESIDENT 07/23/24 Amoxicillin & Pot Clavulanate (Augmentin) 500 Mg Tab, 1 TAB PO BID for 5 Days, #10 TAB Prov:TJ PALUMBO RESIDENT 07/23/24 Reported Medications Ibuprofen (Ibuprofen) 600 Mg Tab, 600 MG PO PRN, TAB 07/14/24 Acyclovir (ZOVIRAX TABLET) 400 Mg Tb, 800 MG PA PRN, TAB 07/14/24 Information Source: Patient Mode of Arrival: Ambulatory Severity: Mild, Moderate Timing: Days Duration: Since onset, Days Prehospital treatment: None Mechanism: Spontaneous Onset Developed: Pruritus, Rash Object: None Condition of Object: None Retained Foreign Body: No Wound Type: Unknown Immunization Status of Animal: NA Tetanus: Unknown History of: None Associated Signs and Symptoms: Redness, Cough Past Medical History PAST MEDICAL HISTORY: DM Surgical History: Denies all surgeries Family History Family History: Reviewed,noncontributory to illness Social History Smoker: Non-Smoker Alcohol: Occasionally Drugs: Denies Drug Use Lives In: Home Constitutional: denies: chills, diaphoresis, fatigue, fever, malaise, sweats, weakness, others EENTM: reports: nose congestion; denies: blurred vision, double vision, ear bleeding, ear discharge, ear drainage, ear pain, ear ringing, eye pain, eye redness, hearing loss, mouth pain, mouth swelling, nasal discharge, nose bleeding, nose pain, photophobia, tearing, throat pain, throat swelling, voice changes, others Respiratory: reports: cough; denies: hemoptysis, orthopnea, SOB at rest, shortness of breath, SOB with excertion, stridor, wheezing, others Cardiovascular: denies: chest pain, dizzy spells, diaphoresis, Dyspnea on exertion, edema, irregular heart beat, left arm pain, lightheadedness, palpitations, PND, syncope, others Gastrointestinal: denies: abdomen distended, abdominal pain, blood streaked bowels, constipated, diarrhea, dysphagia, difficulty swallowing, hematemesis, melena, nausea, poor appetite, poor fluid intake, rectal bleeding, rectal pain, vomiting, others Genitourinary: denies: burning, dysuria, flank pain, frequency, hematuria, incontinence, penile discharge, penile sore, pain, testicle pain, testicle swelling, urgency, others Neurological: denies: dizziness, fainting, headache, left sided numbness, left sided weakness, numbness, paresthesia, pre-existing deficit, right sided numbness, right sided weakness, seizure, speech problems, tingling, tremors, w eakness, others Musculoskeletal: denies: back pain, gout, joint pain, joint swelling, muscle pain, muscle stiffness, neck pain, others Integumetry: reports: rash; denies: bruises, change in color, change in hair/nails, dryness, laceration, lesions, lumps, wounds, others Allergic/Immunocompromised: reports: Hives, Itching; denies: Difficulty Healing, Frequent Infections, others Hematologic/Lymphatic: denies: anemia, blood clots, easy bleeding, easy bruising, swollen glands, others Endocrine: denies: excessive hunger, excessive sweating, excessive thirst, excessive urination, flushing, intolerance to cold, intolerance to heat, unexplained weight gain, unexplained weight loss, others Psychiatric: denies: anxiety, bipolar disorder, depression, hopeless, panic disorder, schizophrenia, sleepless, suicidal, others All Other Systems: Reviewed and Negative Physical Exam General Appearance: No Apparent Distress, Normal HEENT: Normal ENT Inspection, PERRL/EOMI Neck: Full Range of Motion, Non-Tender, Normal, Normal Inspection Respiratory: Chest Non-Tender, Expiration, No Accessory Muscle Use, No Respiratory Distress, Rhonchi Cardiovascular: No Edema, No JVD, No Murmur, No Gallop, Normal Peripheral Pulses, Regular Rate/Rhythm Breast Exam: Deferred Gastrointestinal: No Organomegaly, Non Tender, No Pulsatile Mass, Normal Bowel Sounds, Soft Genitalia: Deferred Pelvic: Deferred Rectal: Deferred Extremities: No calf tenderness, Normal capillary refill, Normal inspection, Normal range of motion, Non-tender, No pedal edema Musculoskeletal : Apperance: Normal Neurologic: Alert, mud analysis well logging operator II-XII nml as Tested, No Motor Deficits, Normal Affect, Normal Mood, No Sensory Deficits Cerebellar Function: Normal Reflexes: Normal Skin: Dry, Rash (ERYTHEMA SKIN RASH WITH HIVES ON UPPER AND LOWER BODY, NO TENDERNESS AND SWELLING. ), Warm Peripheral Pulses: 2+ carotid (R), 2+ carotid (L) Lymphatic: No Adenopathy Was a procedure done? Was a procedure done?: No Differential Diagnosis (INTG) Differential Diagnosis: Contact Dermatitis, Urticaria Differential Diagnosis: Other (ACUTE BRONCHITIS ) X-Ray, Labs, Meds, VS Vital Signs Date Time Temp Pulse Resp B/P (MAP) Pulse Ox O2 Delivery O2 Flow Rate FiO2 09/01/24 11:23 98.1 116 20 128/0 (42) 96 98.1 09/01/24 11:23 116 20 96 Room Air 09/01/24 10:50 98.1 116 20 128/72 (90) 96 98.1 Current Medications Medications (Trade) Dose Ordered Sig/Uday Route Start Time Stop Time Status Last Admin Methylprednisolone Sodium Succinate (Solu Medrol) 125 mg ONCE ONCE IM 09/01/24 11:45 09/01/24 11:46 DC 09/01/24 12:17 Epinephrine HCl 0.3 mg ONCE ONCE SC 09/01/24 11:45 09/01/24 11:46 DC 09/01/24 12:17 PATIENT: JOSE G TAFOYA CACCT: [id number]: [id number] : 1960 LOC: ER ROOM / BED: / AGE / SEX: 64 / M ADM STATUS: REG ER SERVICE 1142 ORDERING PHYSICIAN: VINITA BRISENO PROCEDURE(s): CXR1 - CHEST XRAY 1 VIEW REASON: COUGH ORDER NUMBER(s): [id number], ACCESSION NUMBER(s): [id number] EXAM: XY CHEST XRAY 1 VIEW Indication: COUGH Technique: Single frontal view of the chest was obtained Comparison: None FINDINGS: Lines and Tubes: None Lungs: No focal consolidation. Pleura: No effusion. No pneumothorax. Cardiomediastinal contours: Unremarkable Bones: No acute osseous abnormality. IMPRESSION: No acute cardiopulmonary disease. ATED BY: TAMRA KATHLEEN MD DICTATED DATE/TIME: 09/01/241218 SIGNED BY: TAMRA KATHLEEN MD SIGNED DATE/TIME: 09/01/241218 CC: X-Ray, Labs, Meds, VS Comment EXTERNAL MEDICAL RECORDS REVIEWED: [NONE] INDEPENDENT HISTORIANS: [NONE] SOCIAL DETERMINANTS OF HEALTH: [NONE] LABS ORDERED: NONE REVIEWED AND INTERPRETED RESULTS: CHEST XR IMAGING ORDERED: CHEST XR TREATMENTS ORDERED: EPINEPHRINE 0.3MG SC, SOLU-MEDROL 125MG IM PROCEDURES PERFORMED: NONE CRITICAL CARE TIME: NONE I HAVE DISCUSSED THE PATIENT WITH THE ATTENDING PHYSICIAN DR. PINEDA AND HE AGREES WITH THE PATIENT'S PLAN OF CARE AND DISPOSITION. BASED ON HISTORY OF PRESENT ILLNESS, AND PHYSICAL EXAM, PATIENT WILL BE DISCHARGED HOME. DISCUSSED PLAN FOR DISCHARGE HOME WITH RX KEFLEX, MEDROL DOSE PACK, PHENERGAN DM. MEDICATION WARNINGS GIVEN. SHARED DECISION MAKING: DISCUSSED WITH PATIENT THAT THEIR WORKUP WAS NORMAL. PATIENT INSTRUCTED TO FOLLOW UP WITH PRIMARY CARE PROVIDER IN 1-2 DAYS FOR RE- EVALUATION OF SYMPTOMS. PATIENT VERBALIZES UNDERSTANDING TO RETURN TO ED FOR NEW OR WORSENING SYMPTOMS OR IF FOLLOW UP WITH PCP CANNOT BE OBTAINED. PATIENT FEELS COMFORTABLE GOING HOME AT THIS TIME. ALL QUESTIONS ADDRESSED AT TIME OF DISCHARGE. Time of 1ST Reevaluation: 12:31 Reevaluation 1ST: Improved Patient Education/Counseling: Diagnosis, Treatment, Need For Follow Up Family Education/Counseling: Diagnosis, Treatment, No Family Present Medical Screening: No EMC Exist At This Time Departure 1 Departure Time of Disposition: 12:32 Impression: Primary Impression: Urticaria Additional Impression: Acute bronchitis Qualified Codes: J20.9 - Acute bronchitis, unspecified Disposition: 01 HOME / SELF CARE / HOMELESS Condition: Stable Additional Instructions: FOLLOW-UP WITH PCP IN 1 TO 2 DAYS. TAKE MEDICATIONS PRESCRIBED. RETURN TO ED FOR ANY NEW OR WORSENING SYMPTOMS. e-Prescriptions Methylprednisolone (Medrol Dosepak) 4 Mg Ezequiel 4 MG PO UD, #21 TAB UAD Prov: VINITA BRISENO 09/01/24 Promethazine-Dm (Promethazine Dm 6.25-15 mg/5Ml) 1 Marah Marah 5 ML PO TID, #180 ML Prov: VINITA BRISENO 09/01/24 Cephalexin Monohydrate (Cephalexin) 500 Mg Cap 1 CAP PO QID, #32 CAP Prov: VINITA BRISENO 09/01/24 Discharged With: Self Critical Care Note Critical Care Time?: No Stability Stability form required: No Heart Score Heart Score: Heart Score Response (Comments) Value History N/A 0 EKG N/A 0 Age N/A 0 Risk Factors N/A 0 Troponin N/A 0 Total 0 I personally scribed for VINITA BRISENO ([email or web address]) on 09/01/24 at 11:28. Electronically submitted by Gunnar Jasso ([email or web address]). I personally scribed for VINITA BRISENO ([email or web address]) on 09/01/24 at 11:47. Electronically submitted by Gunnar Jasso ([email or web address]). VINITA BRISENO Sep 01, 2024 11:28
[2024-09-01] MEDS: EPINEPHrine HCL 1 MG/1 ML AMP SC ONE (12:17)
[2024-09-01] MEDS: methylPREDNISolone SOD SUCC 125 MG/2 ML VL IM ONE (12:17)
--- NOTE | 2024-09-01 12:22 | DVH ---
EXAM: XY CHEST XRAY 1 VIEW Indication: COUGH Technique: Single frontal view of the chest was obtained Comparison: None FINDINGS: Lines and Tubes: None Lungs: No focal consolidation. Pleura: No effusion. No pneumothorax. Cardiomediastinal contours: Unremarkable Bones: No acute osseous abnormality. IMPRESSION: No acute cardiopulmonary disease.
[2024-09-01] MEDS ORDERED: PROM1SOL4 PO (12:34)
[2024-09-01] MEDS ORDERED: METH4PAK PO (12:34)
[2024-09-01] MEDS ORDERED: CEPH500C PO (12:34)
== END 2024-09-01 12:41 | disposition home or self-care (01) ==
LOC: ER 10:38
DX: L50.9 Urticaria, unspecified (principal); J20.9 Acute bronchitis, unspecified; E11.9 Type 2 diabetes mellitus without complications; Z79.899 Other long term (current) drug therapy
CPT/HCPCS: 71045; 96372; 99284; J0171; J2919

== ENCOUNTER 2024-09-07 09:33 | Inpatient (IN) | payer OTHER ==
[~2024-09-07] VITALS: Ht 162.6 cm; Wt 83.3 kg
[~2024-09-07 09:33] MED LIST changes: +CEPH500C PO; +METH4PAK PO; +PROM1SOL4 PO
[2024-09-07 10:15] VITALS: PULSE 108; RESP 18; O2SAT 99
[2024-09-07] MEDS: SODIUM CHLORIDE 0.9% 1,000 ML IV ONE ×2 (10:49→21:53)
[2024-09-07] MEDS: ONDANSETRON HCL 4 MG/2 ML VIAL IV ONE (10:52)
[2024-09-07] MEDS: MORPHINE SULFATE 4 MG/ML SYR/VIAL IV ONE (10:55)
--- NOTE | 2024-09-07 10:55 | ED.PDOC ---
GI ASSESSMENT HPI Comments 64Y M with PMHx DM presents to ED for chief complaint intermittent abd pain x1.5months with nausea, constipation, and decreased appetite. As of today, abd pain has been present for 4 days. Pt states abd pain began after colonoscopy was performed on 07/15/2024. Pt describes abd pain as cramps. Pt has taken Omeprazole without relief. Pt was discharged from [facility] on 07/23/2024 with dx acute colitis and was seen at [facility] ER on 09/01/2024 for dx urticaria. Pt discontinued meds prescribed during those visits due to side effects. No other symptoms/history reported. Chief Complaint: Abdominal Pain Time Seen by MD: 10:20 Primary Care Provider: CALEB Ho Notes: Nurses Notes, Medications, Allergies Allergies: Coded Allergies: NO KNOWN ALLERGIES (Unverified , 05/08/24) Home Meds Active Scripts Methylprednisolone (Medrol Dosepak) 4 Mg Ezequiel, 4 MG PO UD, #21 TAB UAD Prov:VINITA BRISENO 09/01/24 Promethazine-Dm (Promethazine Dm 6.25-15 mg/5Ml) 1 Marah Marah, 5 ML PO TID, #180 ML Prov:VINITA BRISENO 09/01/24 Cephalexin Monohydrate (Cephalexin) 500 Mg Cap, 1 CAP PO QID, #32 CAP Prov:VINITA BRISENO 09/01/24 Ondansetron Odt 4MG Tab (ZOFRAN PO) 4 Mg Tb, 4 MG PO Q6HP PRN for 7 Days, #28 TAB ODT TAB-DISSOLVE IN MOUTH, THEN SWALLOW Prov:TJ PALUMBO RESIDENT 07/23/24 Pantoprazole Sodium Sesquihydr (Pantoprazole Sodium) 40 Mg Tab, 40 MG PO DAILY for 30 Days, #30 TAB Prov:TJ PALUMBO RESIDENT 07/23/24 Amoxicillin & Pot Clavulanate (Augmentin) 500 Mg Tab, 1 TAB PO BID for 5 Days, #10 TAB Prov:TJ PALUMBO RESIDENT 07/23/24 Reported Medications Ibuprofen (Ibuprofen) 600 Mg Tab, 600 MG PO PRN, TAB 07/14/24 Acyclovir (ZOVIRAX TABLET) 400 Mg Tb, 800 MG PA PRN, TAB 07/14/24 Information Source: Patient Mode of Arrival: Ambulatory Timing: Months Duration: Intermittent Prehospital treatment: None Quality: Colicky Vomitus: None Stool: Minimal Severity: Mild Recent: Other (colonoscopy 07/2024) Recent Hx of: Other (colonoscopy 07/2024) Pain Location: Diffuse Modifying Factors: Nothing Associated sign and symptoms: Nausea, Constipation, Abdominal Pain, Other Past Medical History PAST MEDICAL HISTORY: DM Surgical History: Denies all surgeries Family History Family History: Reviewed,noncontributory to illness Social History Smoker: Non-Smoker Alcohol: Occasionally Drugs: Denies Drug Use Lives In: Home Constitutional: denies: chills, diaphoresis, fatigue, fever, malaise, sweats, weakness, others EENTM: denies: blurred vision, double vision, ear bleeding, ear discharge, ear drainage, ear pain, ear ringing, eye pain, eye redness, hearing loss, mouth pain, mouth swelling, nasal discharge, nose bleeding, nose congestion, nose pain, photophobia, tearing, throat pain, throat swelling, voice changes, others Respiratory: reports: cough; denies: hemoptysis, orthopnea, SOB at rest, marifer rtness of breath, SOB with excertion, stridor, wheezing, others Cardiovascular: denies: chest pain, dizzy spells, diaphoresis, Dyspnea on exertion, edema, irregular heart beat, left arm pain, lightheadedness, palpitations, PND, syncope, others Gastrointestinal: reports: abdominal pain, constipated, nausea, poor appetite; denies: abdomen distended, blood streaked bowels, diarrhea, dysphagia, difficulty swallowing, hematemesis, melena, poor fluid intake, rectal bleeding, rectal pain, vomiting, others Genitourinary: denies: burning, dysuria, flank pain, frequency, hematuria, incontinence, penile discharge, penile sore, pain, testicle pain, testicle swelling, urgency, others Neurological: denies: dizziness, fainting, headache, left sided numbness, left sided weakness, numbness, paresthesia, pre-existing deficit, right sided numbness, right sided weakness, seizure, speech problems, tingling, tremors, weakness, others Musculoskeletal: denies: back pain, gout, joint pain, joint swelling, muscle pain, muscle stiffness, neck pain, others Integumetry: denies: bruises, change in color, change in hair/nails, dryness, laceration, lesions, lumps, rash, wounds, others Allergic/Immunocompromised: denies: Difficulty Healing, Frequent Infections, Hives, Itching, others Hematologic/Lymphatic: denies: anemia, blood clots, easy bleeding, easy bruising, swollen glands, others Endocrine: denies: excessive hunger, excessive sweating, excessive thirst, excessive urination, flushing, intolerance to cold, intolerance to heat, unexplained weight gain, unexplained weight loss, others Psychiatric: denies: anxiety, bipolar disorder, depression, hopeless, panic disorder, schizophrenia, sleepless, suicidal, others All Other Systems: Reviewed and Negative Physical Exam General Appearance: No Apparent Distress, Normal HEENT: Normal ENT Inspection, Pharynx Normal, TMs Normal Neck: Full Range of Motion, Non-Tender, Normal, Normal Inspection Respiratory: Chest Non-Tender, Lungs Clear, No Accessory Muscle Use, No Respiratory Distress, Normal Breath Sounds Cardiovascular: No Edema, No JVD, No Murmur, No Gallop, Normal Peripheral Pulses, Regular Rate/Rhythm Breast Exam: Deferred Gastrointestinal: No Organomegaly, Non Tender, No Pulsatile Mass, Normal Bowel Sounds, Soft Genitalia: Deferred Pelvic: Deferred Rectal: Deferred Extremities: No calf tenderness, Normal capillary refill, Normal inspection, Normal range of motion, Non-tender, No pedal edema Musculoskeletal : Apperance: Normal Neurologic: Alert, glass glazier II-XII nml as Tested, No Motor Deficits, Normal Affect, Normal Mood, No Sensory Deficits Cerebellar Function: NOT DONE Reflexes: NOT DONE Skin: Dry, Normal Color, Warm Lymphatic: No Adenopathy Was a procedure done? Was a procedure done?: No GI differential Dx Differential Diagnosis: Constipation, Diverticular disease, Gastritis/PUD, Gastroenteritis, Dehydration, Electrolyte Imbalance, Food Poisoning, Bacterial, Viral X-Ray, Labs, Meds, VS Vital Signs Date Time Temp Pulse Resp B/P (MAP) Pulse Ox O2 Delivery O2 Flow Rate FiO2 09/07/24 11:25 92 16 125/69 09/07/24 10:55 93 18 123/68 09/07/24 10:15 108 18 99 Room Air* 0 21 09/07/24 10:15 98.0 108 20 122/63 (82) 99 98.0 09/07/24 09:54 99.6 100 18 118/73 (88) 96 99.6 09/07/24 09:50 95 Lab Test 09/07/24 11:27 09/07/24 10:58 Range/Units Urine Color Light-yellow Yellow Urine Clarity Clear Clear Urine pH 6.0 5.0-9.0 Urine Specific Beals 1.014 1.001-1.035 Urine Protein Negative Negative Urine Ketones Negative Negative Urine Blood Negative Negative /uL Urine Nitrite Negative Negative Urine Bilirubin Negative Negative Urine Urobilinogen Normal Negative mg/dL Urine Leukocyte Esterase Negative Negative /uL Urine RBC <1 0 - 3 /hpf Urine Microscopic WBC 1 0-3 /HPF Urine Squamous Epithelial Cells Few <5 /hpf Urine Bacteria None seen None Seen /hpf Urine Glucose Normal Normal mg/dL White Blood Count 15.8 H 4.4-10.8 10^3/uL Red Blood Count 5.19 4.5-5.90 10^6/uL Hemoglobin 14.5 13.5-17.5 g/dL Hematocrit 42.6 41.0-53.0 % Mean Corpuscular Volume 82.2 80.0-100.0 fL Mean Corpuscular Hemoglobin 28.0 28.0-32.0 pg Mean Corpuscular Hemoglobin Concent 34.0 32.0-36.0 g/dL Red Cell Distribution Width 13.7 11.8-14.3 % Platelet Count 455 H 140-450 10^3/uL Mean Platelet Volume 7.8 6.9-10.8 fL Neutrophils (%) (Auto) 68.8 37.0-80.0 % Lymphocytes (%) (Auto) 15.3 10.0-50.0 % Monocytes (%) (Auto) 14.6 H 0.0-12.0 % Eosinophils (%) (Auto) 0.8 0.0-7.0 % Basophils (%) (Auto) 0.5 0.0-2.0 % Neutrophils # (Auto) 10.9 H 1.6-8.6 10 ^3/uL Lymphocytes # (Auto) 2.4 0.4-5.4 10 ^3/uL Monocytes # (Auto) 2.3 H 0-1.3 10 ^3/uL Eosinophils # (Auto) 0.1 0-0.8 10 ^3/uL Basophils # (Auto) 0.1 0-0.2 10 ^3/uL Nucleated Red Blood Cells 0.1 % Sodium Level 136 136-145 mmol/L Potassium Level 3.9 3.5-5.1 mmol/L Chloride Level 101 98-107 mmol/L Carbon Dioxide Level 30 20-31 mmol/L Anion Gap 5 5-15 Blood Urea Nitrogen 15 9-23 mg/dL Creatinine 0.71 0.700-1.30 mg/dL Glomerular Filtration Rate Calc 104 >90 mL/min BUN/Creatinine Ratio 21.1 H 10.0-20.0 Serum Glucose 88 74-106 mg/dL Calcium Level 9.7 8.7-10.4 mg/dL Total Bilirubin 0.7 0.2-1.0 mg/dL Aspartate Amino Transferase (AST) 37 13-40 U/L Alanine Aminotransferase (ALT) 32 7-40 U/L Alkaline Phosphatase 99 46-116 U/L Total Protein 7.3 5.7-8.2 g/dL Albumin 4.5 3.2-4.8 g/dL Lipase 32 12-53 U/L Current Medications Medications (Trade) Dose Ordered Sig/Uday Route Start Time Stop Time Status Last Admin Sodium Chloride 1,000 ml @ 1,000 mls/hr Q1H ONCE IV 09/07/24 10:30 09/07/24 11:29 DC 09/07/24 10:49 Ondansetron HCl (Zofran) 4 mg ONCE ONCE IV 09/07/24 10:30 09/07/24 10:31 DC 09/07/24 10:52 Morphine Sulfate 4 mg ONCE ONCE IV 09/07/24 10:30 09/07/24 10:31 DC 09/07/24 10:55 [place] [id number] Ph: [phone] DIAGNOSTIC IMAGING Diagnostic Imaging Report : [id number] Signed PATIENT: JOSE G TAFOYA ACCT: [id number] UNIT: [id number] : 1960 LOC: ER ROOM / BED: / AGE / SEX: 64 / M ADM STATUS: REG ER SERVICE 1025 ORDERING PHYSICIAN: TRISH FRY MD PROCEDURE(s): ABPLIV - CT AB PEL WITH IV CON ONLY REASON: abdominal pain since colonoscopy 1 month ago ORDER NUMBER(s): [id number], ACCESSION NUMBER(s): [id number] Exam: CT CT AB PEL WITH IV CON ONLY History: abdominal pain since colonoscopy 1 month ago COMPARISON: 07/21/2024 Technique: Multidetector spiral CT of the abdomen and pelvis was performed from lung bases to pubic symphysis. Intravenous contrast was administered during this examination. Portal venous imaging was obtained. Axial, coronal and sagittal multiplanar reformats were performed by the technologist on a separate workstation. Radiation Dose : Abdomen/Pelvis: CTDIvol 12.7 mGy, DLP 766.34 mGy*cm. CONTRAST: Type of contrast: Omni 300 Contrast injected: 100 mL Findings: Lung Bases: No acute or significant lung base finding. Normal heart size. No pleural or pericardial effusion. Liver: Area of subtle increased enhancement in the periphery of the right lobe of the liver is nonspecific. Hepatic steatosis. Gallbladder and biliary Tree: Unremarkable Spleen: Unremarkable Pancreas: The pancreas is normal in appearance without focal lesions or abnormal enhancement. Adrenal Glands: Unremarkable Kidneys: Right perinephric stranding. No hydronephrosis. Bladder: Unremarkable Bowel: The stomach is grossly normal in appearance. Large cecal mass measuring up to 82 x 106 mm. The appendix is not visualized; however, no secondary findings of acute appendicitis identified. Ascites: Absent Lymphadenopathy: Multiple prominent mesenteric lymph nodes in the right lower quadrant measuring up to 13 mm in short axis. Abdominal wall and Mesentery: Unremarkable. Vasculature: The visualized abdominal aorta is normal in size and caliber. Abdominal and pelvic vessels demonstrate normal enhancement. Pelvic Organs: Unremarkable Musculoskeletal: Grade 1 anterolisthesis L4 on L5. IMPRESSION: 1. Large cecal mass concerning for primary colonic malignancy. Adjacent enlarged mesenteric lymph nodes measuring up to 13 mm likely represent metastatic disease. Correlate with recent colonoscopy. If cecal mass was not previously biopsied, colonoscopy with biopsy is recommended. 2. Subtle area of enhancement in the peripheral right lobe of the liver is nonspecific. Hepatic steatosis. This could be further evaluated with MRI of the abdomen with contrast. Radiation optimization: All CT scans at this facility use at least one of these dose optimization techniques: Automated exposure control mA and/or kV adjustment per patient size (includes targeted exams where dose is matched to clinical indication) or iterative reconstruction. HS:Y ATED BY: AMY FOWLER MD DICTATED DATE/TIME: 09/07/24 1249 SIGNED BY: AMY FOWLER MD SIGNED DATE/TIME: 09/07/24 1249 CC: Time of 1ST Reevaluation: 10:50 Reevaluation 1ST: Unchanged Patient Education/Counseling: Diagnosis, Treatment Family Education/Counseling: No Family Present Departure 1 Departure Time of Disposition: 13:29 (Patient presented with abdominal pain that was concerning for possible appendicits, gastritis, cholecystitis, colitis, gastroenteritis, sbo, or orther possible surgical emergency. Data: 1. I ordered and reviewed the result of at least 3 labs including a CBC, BMP, and Urinalysis. 2. I independently interpreted the following tests: CT Abdoment and Pelvis is concerning for malignancy .Risk:This patient has a high risk of morbidity due to further diagnostic testing or treatment and may suffer from an acute abdominal process disorder. Workup reveals concern for malignancy and patient should be admitted for further workup. and possible expert consultation. ) Impression: Primary Impression: Cecum mass Additional Impression: Abdominal pain Qualified Codes: R10.84 - Generalized abdominal pain Disposition: 09 ADMITTED INPATIENT Admit to: Med Surg Condition: Serious Critical Care Note Critical Care Time?: Yes Critical care comment: Intractable abdominal pain Authorized and Performed by: Trish Fry MD Total critical care time: Approximately 37 minutes Due to a high probability of clinically significant, life threatening deterioration, the patient required my highest level of preparedness to intervene emergently and I personally spent this critical care time directly and personally managing the patient. This critical care time included obtaining a history; examining the patient; pulse oximetry; ordering and review of studies; arranging urgent treatment with development of a management plan; evaluation of patient's response to treatment; frequent reassessment; and, discussions with other providers. This critical care time was performed to assess and manage the high probability of imminent, life-threatening deterioration that could result in multi-organ failure. It was exclusive of separately billable procedures and treating other patients and teaching time. Please see my other sections and the rest of the note for further information on patient assessment and treatment. Stability Stability form required: No Heart Score Heart Score: Heart Score Response (Comments) Value History N/A 0 EKG N/A 0 Age N/A 0 Risk Factors N/A 0 Troponin N/A 0 Total 0 I personally scribed for TRISH FRY MD ([email or web address]) on 09/07/24 at 10:55. Electronically submitted by Anastasia Rowe ([facility]). I personally scribed for TRISH FRY MD ([facility] on 09/07/24 at 13:11. Electronically submitted by Anastasia Rowe ([facility]). TRISH FRY MD Sep 07, 2024 10:55
[2024-09-07 11:08] LABS: Basophils # (auto) 0.1 10 ^3/uL (0-0.2); Basophils % (auto) 0.5 % (0.0-2.0); Eosinophils # (auto) 0.1 10 ^3/uL (0-0.8); Eosinophils % (auto) 0.8 % (0.0-7.0); Hematocrit 42.6 % (41.0-53.0); Hemoglobin 14.5 g/dL (13.5-17.5); Lymphocytes # (auto) 2.4 10 ^3/uL (0.4-5.4); Lymphocytes % (auto) 15.3 % (10.0-50.0); Mean Corpuscular Volume 82.2 fL (80.0-100.0); Monocytes # (auto) 2.3 10 ^3/uL (0-1.3); Monocytes % (auto) 14.6 % (0.0-12.0); Neutrophils # (auto) 10.9 10 ^3/uL (1.6-8.6); Neutrophils % (auto) 68.8 % (37.0-80.0); Nucleated Red Blood Cells % 0.1 %; Platelet Count (auto) 455 10^3/uL (140-450); Red Blood Cells 5.19 10^6/uL (4.5-5.90); Red Cell Distribution Width 13.7 % (11.8-14.3); White Blood Cell 15.8 10^3/uL (4.4-10.8)
[2024-09-07 11:34] LABS: Alanine Aminotransferase 32 U/L (7-40); Albumin 4.5 g/dL (3.2-4.8); Alkaline Phosphatase 99 U/L (46-116); Anion Gap 5 (5-15); Aspartate Aminotransferase 37 U/L (13-40); BUN/Creatinine Ratio 21.1 (10.0-20.0); Bilirubin, Total 0.7 mg/dL (0.2-1.0); Blood Urea Nitrogen 15 mg/dL (9-23); Calcium 9.7 mg/dL (8.7-10.4); Carbon Dioxide 30 mmol/L (20-31); Chloride 101 mmol/L (98-107); Glucose 88 mg/dL (74-106); Lipase 32 U/L (12-53); Potassium 3.9 mmol/L (3.5-5.1); Sodium 136 mmol/L (136-145); Total Protein 7.3 g/dL (5.7-8.2)
[2024-09-07 11:50] LABS: Urine Bacteria None Seen /hpf (None Seen)
[2024-09-07 12:03] LABS: Urine Blood Negative /uL (Negative); Urine Clarity Clear (Clear); Urine Color Light-Yellow (Yellow); Urine Protein, UAD Negative (Negative); Urine Specific Gravity 1.014 (1.001-1.035); Urine Squamous Epithelial Cell FEW /hpf (<5); Urine Urobilinogen Normal (Negative); Urine WBC 1 /HPF (0-3)
[2024-09-07] MEDS: IOHEXOL 300 MG/ML 100ML BOTTLE IJ ONE (12:24)
--- NOTE | 2024-09-07 12:51 | DVH ---
Exam: CT CT AB PEL WITH IV CON ONLY History: abdominal pain since colonoscopy 1 month ago COMPARISON: 07/21/2024 Technique: Multidetector spiral CT of the abdomen and pelvis was performed from lung bases to pubic symphysis. Intravenous contrast was administered during this examination. Portal venous imaging was obtained. Axial, coronal and sagittal multiplanar reformats were performed by the technologist on a separate workstation. Radiation Dose : Abdomen/Pelvis: CTDIvol 12.7 mGy, DLP 766.34 mGy*cm. CONTRAST: Type of contrast: Omni 300 Contrast injected: 100 mL Findings: Lung Bases: No acute or significant lung base finding. Normal heart size. No pleural or pericardial effusion. Liver: Area of subtle increased enhancement in the periphery of the right lobe of the liver is nonspe cific. Hepatic steatosis. Gallbladder and biliary Tree: Unremarkable Spleen: Unremarkable Pancreas: The pancreas is normal in appearance without focal lesions or abnormal enhancement. Adrenal Glands: Unremarkable Kidneys: Right perinephric stranding. No hydronephrosis. Bladder: Unremarkable Bowel: The stomach is grossly normal in appearance. Large cecal mass measuring up to 82 x 106 mm. The appendix is not visualized; however, no secondary findings of acute appendicitis identified. Ascites: Absent Lymphadenopathy: Multiple prominent mesenteric lymph nodes in the right lower quadrant measuring up t o 13 mm in short axis. Abdominal wall and Mesentery: Unremarkable. Vasculature: The visualized abdominal aorta is normal in size and caliber. Abdominal and pelvic vess els demonstrate normal enhancement. Pelvic Organs: Unremarkable Musculoskeletal: Grade 1 anterolisthesis L4 on L5. IMPRESSION: 1. Large cecal mass concerning for primary colonic malignancy. Adjacent enlarged mesenteric lymph nod es measuring up to 13 mm likely represent metastatic disease. Correlate with recent colonoscopy. If c ecal mass was not previously biopsied, colonoscopy with biopsy is recommended. 2. Subtle area of enhancement in the peripheral right lobe of the liver is nonspecific. Hepatic steat osis. This could be further evaluated with MRI of the abdomen with contrast. Radiation optimization: All CT scans at this facility use at least one of these dose optimization joya hniques: Automated exposure control mA and/or kV adjustment per patient size (includes targeted exams where dose is matched to clinical indication) or iterative reconstruction. HS:Y
[2024-09-07] MEDS ORDERED: ONDANSETRON HCL 4 MG/2 ML VIAL IV PRN (16:15)
[2024-09-07] MEDS ORDERED: DOCUSATE SOD 100 MG CAP PO PRN (16:15)
[2024-09-07] MEDS ORDERED: ACETAMINOPHEN 325 MG TAB PO PRN (16:15)
--- NOTE | 2024-09-07 16:33 | DVHHP2 ---
History of Present Illness Reason for Visit: Abdominal pain History of Present Illness Frankie Cason is a 64-year-old male that denies any past medical history who came in for abdominal pain. Patient states he had a routine, out patient colonoscopy in July and has been experiencing abdominal pain, bloating, and constipation since. He states he came to the ER in August for the same symptoms and was told he had diverticulitis and sent home. He followed up with GI for his colonoscopy results and was told he does not have diverticulitis. He states whenever he eats his abdomen becomes bloated, and he has constipation. CT completed with IV contrast shows a large cecal mass. Patient will be admitted for further testing, and GI consult. Past Surgical History: None Smoke: No ALCOHOL: none Drugs: None Lives: Alone Domestic Violence: Neg Review of Systems Constitutional: No: Fever, Chills, Sweats, Weakness, Malaise, Other Eyes: No: Pain, Vision change, Conjunctivae inflammation, Eyelid inflammation, Other, Redness ENT: No: Ear pain, Ear discharge, Nose pain, Nose discharge, Nose congestion, Mouth pain, Mouth swelling, Throat pain, Throat swelling, Other Respiratory: No: Cough, Dry, Shortness of breath, SOB with excertion, Wheezing, Hemoptysis, Pleuritic Pain, Sputum, Wheezing, Other Cardiovascular: No: Chest Pain, Palpitations, Orthopnea, Paroxysmal Noc. Dyspnea, Edema, Lt Headedness, Other Gastrointestinal: Abdominal Pain, Constipation; No: Nausea, Vomiting, Diarrhea, Melena, Hematochezia, Other Genitourinary: No Dysuria, No Frequency, No Incontinence, No Hematuria, No Retention, No Other Musculoskeletal: No: other, neck pain, shoulder pain, arm pain, back pain, hand pain, leg pain, foot pain Skin: No: Rash, Lesions, Jaundice, Bruising, Other Neurological: No: Weakness, Numbness, Incoordination, Change in speech, Confusion, Seizures, Other Allergies: Coded Allergies: NO KNOWN ALLERGIES (Unverified , 05/08/24) Medications Current Medications Medications Dose Ordered Sig/Uday Route Start Time Stop Time Status Last Admin Dose Admin Acetaminophen/ Hydrocodone Bitart 1 tab Q4HP PRN PO 09/07/24 16:15 Ondansetron HCl 4 mg Q4HP PRN IV 09/07/24 16:15 Docusate Sodium 100 mg BIDPRN PRN PO 09/07/24 16:15 Acetaminophen 650 mg Q6HP PRN PO 09/07/24 16:15 Exam Vital Signs Vital Signs Date Time Temp Pulse Resp B/P (MAP) Pulse Ox O2 Delivery O2 Flow Rate FiO2 09/07/24 14:30 99.2 91 18 116/70 (85) 97 99.2 09/07/24 10:15 Room Air* 0 21 General Appearance: Alert, Oriented X3, Cooperative, mild distress HEENT: Atraumatic, PERRLA Respiratory: Clear to auscultation, Normal air movement Cardiovascular: Regular rate, Normal S1, Normal S2, No murmurs Abdominal: Normal bowel sounds, Other (distended, pain) Extremities: No clubbing, No cyanosis, No edema, Normal pulses Skin: No rashes, No breakdown, No significant lesion Neuro: Normal gait, Normal speech, Strength at 5/5 X4 ext, Normal tone Psych/Mental Status: Mental status NL, Mood NL Labs/Xrays Labs Test 09/07/24 11:27 09/07/24 10:58 Range/Units Urine Color Light-yellow Yellow Urine Clarity Clear Clear Urine pH 6.0 5.0-9.0 Urine Specific [place] 1.014 1.001-1.035 Urine Protein Negative Negative Urine Ketones Negative Negative Urine Blood Negative Negative /uL Urine Nitrite Negative Negative Urine Bilirubin Negative Negative Urine Urobilinogen Normal Negative mg/dL Urine Leukocyte Esterase Negative Negative /uL Urine RBC <1 0 - 3 /hpf Urine Microscopic WBC 1 0-3 /HPF Urine Squamous Epithelial Cells Few <5 /hpf Urine Bacteria None seen None Seen /hpf Urine Glucose Normal Normal mg/dL White Blood Count 15.8 H 4.4-10.8 10^3/uL Red Blood Count 5.19 4.5-5.90 10^6/uL Hemoglobin 14.5 13.5-17.5 g/dL Hematocrit 42.6 41.0-53.0 % Mean Corpuscular Volume 82.2 80.0-100.0 fL Mean Corpuscular Hemoglobin 28.0 28.0-32.0 pg Mean Corpuscular Hemoglobin Concent 34.0 32.0-36.0 g/dL Red Cell Distribution Width 13.7 11.8-14.3 % Platelet Count 455 H 140-450 10^3/uL Mean Platelet Volume 7.8 6.9-10.8 fL Neutrophils (%) (Auto) 68.8 37.0-80.0 % Lymphocytes (%) (Auto) 15.3 10.0-50.0 % Monocytes (%) (Auto) 14.6 H 0.0-12.0 % Eosinophils (%) (Auto) 0.8 0.0-7.0 % Basophils (%) (Auto) 0.5 0.0-2.0 % Neutrophils # (Auto) 10.9 H 1.6-8.6 10 ^3/uL Lymphocytes # (Auto) 2.4 0.4-5.4 10 ^3/uL Monocytes # (Auto) 2.3 H 0-1.3 10 ^3/uL Eosinophils # (Auto) 0.1 0-0.8 10 ^3/uL Basophils # (Auto) 0.1 0-0.2 10 ^3/uL Nucleated Red Blood Cells 0.1 % Sodium Level 136 136-145 mmol/L Potassium Level 3.9 3.5-5.1 mmol/L Chloride Level 101 98-107 mmol/L Carbon Dioxide Level 30 20-31 mmol/L Anion Gap 5 5-15 Blood Urea Nitrogen 15 9-23 mg/dL Creatinine 0.71 0.700-1.30 mg/dL Glomerular Filtration Rate Calc 104 >90 mL/min BUN/Creatinine Ratio 21.1 H 10.0-20.0 Serum Glucose 88 74-106 mg/dL Calcium Level 9.7 8.7-10.4 mg/dL Total Bilirubin 0.7 0.2-1.0 mg/dL Aspartate Amino Transferase (AST) 37 13-40 U/L Alanine Aminotransferase (ALT) 32 7-40 U/L Alkaline Phosphatase 99 46-116 U/L Total Protein 7.3 5.7-8.2 g/dL Albumin 4.5 3.2-4.8 g/dL Lipase 32 12-53 U/L Exam: CT CT AB PEL WITH IV CON ONLY Findings: Lung Bases: No acute or significant lung base finding. Normal heart size. No pleural or pericardial effusion. Liver: Area of subtle increased enhancement in the periphery of the right lobe of the liver is nonspecific. Hepatic steatosis. Gallbladder and biliary Tree: Unremarkable Spleen: Unremarkable Pancreas: The pancreas is normal in appearance without focal lesions or abnormal enhancement. Adrenal Glands: Unremarkable Kidneys: Right perinephric stranding. No hydronephrosis. Bladder: Unremarkable Bowel: The stomach is grossly normal in appearance. Large cecal mass measuring up to 82 x 106 mm. The appendix is not visualized; however, no secondary findings of acute appendicitis identified. Ascites: Absent Lymphadenopathy: Multiple prominent mesenteric lymph nodes in the right lower quadrant measuring up to 13 mm in short axis. Abdominal wall and Mesentery: Unremarkable. Vasculature: The visualized abdominal aorta is normal in size and caliber. Abdominal and pelvic vessels demonstrate normal enhancement. Pelvic Organs: Unremarkable Musculoskeletal: Grade 1 anterolisthesis L4 on L5. IMPRESSION: 1. Large cecal mass concerning for primary colonic malignancy. Adjacent enlarged mesenteric lymph nodes measuring up to 13 mm likely represent metastatic disease. Correlate with recent colonoscopy. If cecal mass was not previously biopsied, colonoscopy with biopsy is recommended. 2. Subtle area of enhancement in the peripheral right lobe of the liver is nonspecific. Hepatic steatosis. This could be further evaluated with MRI of the abdomen with contrast. Assessment/Plan Assessment/Plan Assessment: Cecum mass, Constipation, Hepatic Steatosis, Plan: Admit to Med-Surg, GI consult, CEA, Clear liquid diet, IV hydration, IV antibiotics, Plan discussed with: Patient My Orders Orders - BLAKE NEGRON Procedure Category Date Status Time Admit ADMIT 09/07/24 Transmitted 16:10 Code Status CODE 09/07/24 Transmitted 16:10 Hydrocodone-Acet PHA 09/07/24 In Process 5/325mg Tab ([place] 16:15 Ondansetron Hcl PHA 09/07/24 In Process (Zofran) 16:15 Docusate Sodium PHA 09/07/24 In Process Capsule (Colace 16:15 Complete Blood Count LAB 09/08/24 Verified 04:00 Comprehensive LAB 09/08/24 Verified Metabolic Panel 04:00 Condition: Serious MARGY 09/07/24 In Process 16:10 Acetaminophen Tablet PHA 09/07/24 In Process (Tylenol Tablet) 16:15 Clear Liq Diet DIET 09/07/24 Transmitted Dinner * [facility] Herpetologist CONS 09/07/24 Transmitted 16:10 Carcinoembryonic LAB 09/07/24 Logged Antigen 16:10 Metronidazole Ivpb PHA 09/07/24 Verified Flagyl 22:00 Date of Service: Sep 07, 2024 Billing Provider: BLAKE NEGRON Common Visit Codes: [id number] INP/OBS CARE (MOD) BLAKE NEGRON Sep 07, 2024 16:33
[2024-09-07 20:37] VITALS: BP 130/68; PULSE 76; RESP 18; TEMP 97
[2024-09-07 21:20] VITALS: BP 109/63; PULSE 98; RESP 16; TEMP 98.5; O2SAT 95
[2024-09-07] MEDS: metroNIDAZOLE 500MG/100ML 100 ML IV SCH (21:48)
[2024-09-07] MEDS: HYDROcodone-ACET 5/325MG TAB PO PRN (21:58)
[2024-09-08] VITALS (8 sets, daily range): BP systolic 101–120; BP diastolic 54–66; PULSE 90–96; RESP 17–19; TEMP 97.6–98.7; O2SAT 90–96
[2024-09-08 06:35] LABS: Basophils # (auto) 0.1 10 ^3/uL (0-0.2); Basophils % (auto) 0.6 % (0.0-2.0); Eosinophils # (auto) 0.1 10 ^3/uL (0-0.8); Eosinophils % (auto) 0.9 % (0.0-7.0); Hematocrit 36.3 % (41.0-53.0); Hemoglobin 12.4 g/dL (13.5-17.5); Lymphocytes # (auto) 1.8 10 ^3/uL (0.4-5.4); Lymphocytes % (auto) 11.2 % (10.0-50.0); Mean Corpuscular Hemoglobin 28.5 pg (28.0-32.0); Mean Corpuscular Hgb Conc. 34.1 g/dL (32.0-36.0); Mean Corpuscular Volume 83.8 fL (80.0-100.0); Monocytes # (auto) 2.4 10 ^3/uL (0-1.3); Monocytes % (auto) 14.9 % (0.0-12.0); Neutrophils # (auto) 11.6 10 ^3/uL (1.6-8.6); Neutrophils % (auto) 72.4 % (37.0-80.0); Platelet Count (auto) 365 10^3/uL (140-450); Red Blood Cells 4.33 10^6/uL (4.5-5.90); Red Cell Distribution Width 13.7 % (11.8-14.3)
[2024-09-08 06:51] LABS: Alanine Aminotransferase 23 U/L (7-40); Albumin 3.6 g/dL (3.2-4.8); Alkaline Phosphatase 81 U/L (46-116); Anion Gap 8 (5-15); Aspartate Aminotransferase 39 U/L (13-40); BUN/Creatinine Ratio 21.6 (10.0-20.0); Blood Urea Nitrogen 16 mg/dL (9-23); Carbon Dioxide 27 mmol/L (20-31); Chloride 98 mmol/L (98-107); Glucose 82 mg/dL (74-106); Potassium 4.1 mmol/L (3.5-5.1); Total Protein 6.2 g/dL (5.7-8.2)
[2024-09-08 06:52] LABS: Calcium 8.7 mg/dL (8.7-10.4); Sodium 133 mmol/L (136-145)
[2024-09-08] MEDS ORDERED: GOLYTELY 4L KIT PO ONE (13:15)
--- NOTE | 2024-09-08 13:34 | DVHINCON2 ---
GI Consult Consult Note GI consult note Date of Consultation:09/08/2024 Chief Complaint: possible cecum mass Referring Physician:Lauryn MORTENSEN H&P: 64 yo male admitted c abd pain Pt c/o generalized abd pain, on and off last few weeks, getting worse now. Patient also holding his right side abdomen Patient having bloating and constipation symptoms also. Patient has symptoms of rectal discomfort Last bowel movement on Thursday. Has noticed slight red colored stool No nausea or vomiting. Patient complaining of cough symptoms for the past four weeks Status post colonoscopy Operative Report DATE OF OPERATION: 07/15/24 PROCEDURE: Colonoscopy colonoscopy with snare polypectomy. PREOPERATIVE INDICATION: The patient is a 64 -year-old male undergoing colonoscopy for colon cancer screening POSTOPERATIVE DIAGNOSES: 1. 5-6 mm benign-appearing rectal polyp was seen and removed via hot snare polypectomy 2. There was a 2-3 mm benign-appearing descending colon polyp that was seen and removed by cold biopsy forceps 3. There was mild sigmoid diverticular disease with sigmoid muscular hypertrophy and diverticular associated sigmoiditis 4. Trace internal hemorrhoids otherwise normal examination up to the cecum and terminal ileum PROCEDURE PERFORMED BY: Roxanna Stubbs M.D. Pathology tubular adenoma Past Medical History: Denies Past Surgical History: Denies Social History: NO smoking, drinking ETOH and use of illegal drugs. Family History: Noncontributory Review of Systems: Constitutional: no fever, chill, weight loss Heart: no chest pain, no chest pressure Lung: + cough Abdomen: see HPI Physical exam: General: NAD, AAOX3 Chest: lung meehan clear to auscultation Heart: RRR, no murmur Abdomen: Mild-distended,+ periumbilical and right side abdomen tenderness to palpation, +BS Labs: Labs Test 09/08/24 05:51 09/07/24 11:27 09/07/24 10:58 Range/Units White Blood Count 16.0 H 4.4-10.8 10^3/uL Red Blood Count 4.33 L 4.5-5.90 10^6/uL Hemoglobin 12.4 L 13.5-17.5 g/dL Hematocrit 36.3 #L 41.0-53.0 % Mean Corpuscular Volume 83.8 80.0-100.0 fL Mean Corpuscular Hemoglobin 28.5 28.0-32.0 pg Mean Corpuscular Hemoglobin Concent 34.1 32.0-36.0 g/dL Red Cell Distribution Width 13.7 11.8-14.3 % Platelet Count 365 140-450 10^3/uL Mean Platelet Volume 7.6 6.9-10.8 fL Neutrophils (%) (Auto) 72.4 37.0-80.0 % Lymphocytes (%) (Auto) 11.2 10.0-50.0 % Monocytes (%) (Auto) 14.9 H 0.0-12.0 % Eosinophils (%) (Auto) 0.9 0.0-7.0 % Basophils (%) (Auto) 0.6 0.0-2.0 % Neutrophils # (Auto) 11.6 H 1.6-8.6 10 ^3/uL Lymphocytes # (Auto) 1.8 0.4-5.4 10 ^3/uL Monocytes # (Auto) 2.4 H 0-1.3 10 ^3/uL Eosinophils # (Auto) 0.1 0-0.8 10 ^3/uL Basophils # (Auto) 0.1 0-0.2 10 ^3/uL Nucleated Red Blood Cells 0.0 % Sodium Level 133 L 136-145 mmol/L Potassium Level 4.1 3.5-5.1 mmol/L Chloride Level 98 98-107 mmol/L Carbon Dioxide Level 27 20-31 mmol/L Anion Gap 8 5-15 Blood Urea Nitrogen 16 9-23 mg/dL Creatinine 0.74 0.700-1.30 mg/dL Glomerular Filtration Rate Calc 102 >90 mL/min BUN/Creatinine Ratio 21.6 H 10.0-20.0 Serum Glucose 82 74-106 mg/dL Calcium Level 8.7 8.7-10.4 mg/dL Total Bilirubin 1.0 0.2-1.0 mg/dL Aspartate Amino Transferase (AST) 39 13-40 U/L Alanine Aminotransferase (ALT) 23 7-40 U/L Alkaline Phosphatase 81 46-116 U/L Total Protein 6.2 5.7-8.2 g/dL Albumin 3.6 3.2-4.8 g/dL Urine Color Light-yellow Yellow Urine Clarity Clear Clear Urine pH 6.0 5.0-9.0 Urine Specific [place] 1.014 1.001-1.035 Urine Protein Negative Negative Urine Ketones Negative Negative Urine Blood Negative Negative /uL Urine Nitrite Negative Negative Urine Bilirubin Negative Negative Urine Urobilinogen Normal Negative mg/dL Urine Leukocyte Esterase Negative Negative /uL Urine RBC <1 0 - 3 /hpf Urine Microscopic WBC 1 0-3 /HPF Urine Squamous Epithelial Cells Few <5 /hpf Urine Bacteria None seen None Seen /hpf Urine Glucose Normal Normal mg/dL Lipase 32 12-53 U/L Carcinoembryonic Antigen 1.12 <=5.0 ng/mL Imaging: CT abdomen pelvis with IV contrast IMPRESSION: 1. Large cecal mass concerning for primary colonic malignancy. Adjacent enlarged mesenteric lymph nodes measuring up to 13 mm likely represent metastatic disease. Correlate with recent colonoscopy. If cecal mass was not previously biopsied, colonoscopy with biopsy is recommended. 2. Subtle area of enhancement in the peripheral right lobe of the liver is nonspecific. Hepatic steatosis. This could be further evaluated with MRI of the abdomen with contrast. Assessment: Abdominal pain Large cecal mass Plan: -discussed with Dr. Stubbs MRI abdomen recommended, patient is status post neck surgery in 2003 unsure if he has any metal in his neck Surgical consult NPO Guillaume and Nela We will continue to follow this patient Thank you for this consult Date of Service: Sep 08, 2024 Billing Provider: RENEE RIVERA Common Visit Codes: CONSULT ONLY Consultation Codes: [id number] CONSULT <60MIN RENEE RIVERA Sep 08, 2024 13:34
[2024-09-08] MEDS: GASTROGRAFIN 30 ML SOL ONE (14:54)
--- NOTE | 2024-09-08 15:11 | DVHPN2 ---
Subjective Patient continues to complain of abdominal pain, reports constipation Reviewed: Care Plan, H&P, Labs, Medications Changes from previous H/P or p: No Changes General: Per HPI Eyes: No Pain, No Vision change, No Conjunctivae inflammation, No Eyelid inflammation, No Other, No Redness ENT: No Ear pain, No Ear discharge, No Nose pain, No Nose discharge, No Nose congestion, No Mouth pain, No Mouth swelling, No Throat pain, No Throat swelling, No Other Cardiovascular: No Chest Pain, No Palpitations, No Orthopnea, No Paroxysmal Noc. Dyspnea, No Edema, No Lt Headedness, No Other Respiratory: No Cough, No Dry, No Shortness of breath, No SOB with excertion, No Wheezing, No Hemoptysis, No Pleuritic Pain, No Sputum, No Other Gastrointestinal: No Nausea, No Vomiting; Abdominal Pain; No Diarrhea; C onstipation; No Melena, No Hematochezia, No Other Genitourinary: No Dysuria, No Frequency, No Incontinence, No Hematuria, No Retention, No Other Musculoskeletal: No other, No neck pain, No shoulder pain, No arm pain, No back pain, No hand pain, No leg pain, No foot pain Skin: No Rash, No Lesions, No Jaundice, No Bruising, No Other Objective Vitals Vital Signs Date Time Temp Pulse Resp B/P (MAP) Pulse Ox O2 Delivery O2 Flow Rate FiO2 09/08/24 13:30 97.6 91 19 117/60 (79) 93 97.6 09/08/24 08:19 Room Air* 0 21 Intake/Output Intake and Output 09/08/24 07:00 Intake Total 600 ml Balance 600 ml Intake Oral 400 ml IV Total 200 ml # Voids 1 # Bowel Movements 1 General Appearance: Alert, Oriented X3, Cooperative HEENT: Atraumatic, PERRLA Lungs: Clear to auscultation, Normal air movement Cardiovascular: Normal S1, Normal S2 Abdomen: Normal bowel sounds, Soft, No tenderness, No hepatospenomegaly Musculoskeletal: Normal sensory function, Normal motor function Skin: Dry, Intact Psych/Mental Status: Mental status NL, Mood NL Medications Current Medications Medications Dose Ordered Sig/Uday Route Start Time Stop Time Status Last Admin Dose Admin Acetaminophen/ Hydrocodone Bitart 1 tab Q4HP PRN PO 09/07/24 16:15 09/07/24 21:58 1 TAB Ondansetron HCl 4 mg Q4HP PRN IV 09/07/24 16:15 Docusate Sodium 100 mg BIDPRN PRN PO 09/07/24 16:15 Acetaminophen 650 mg Q6HP PRN PO 09/07/24 16:15 Metronidazole 100 ml @ 100 mls/hr Q8HR IV 09/07/24 22:00 09/08/24 13:45 100 MLS/HR Levofloxacin/ Dextrose 100 ml @ 100 mls/hr DAILY IV 09/09/24 10:00 Laboratory Results Laboratory Tests 09/08/24 05:51 Chemistry Test 09/08/24 05:51 Albumin 3.6 g/dL (3.2-4.8) Calcium Level 8.7 mg/dL (8.7-10.4) Total Protein 6.2 g/dL (5.7-8.2) LFT Test 09/08/24 05:51 Alanine Aminotransferase (ALT) 23 U/L (7-40) Alkaline Phosphatase 81 U/L (46-116) Aspartate Amino Transferase (AST) 39 U/L (13-40) Total Bilirubin 1.0 mg/dL (0.2-1.0) Urinalysis Test 09/07/24 11:27 Urine Color Light-yellow (Yellow) Urine Clarity Clear (Clear) Urine pH 6.0 (5.0-9.0) Urine Specific [place] 1.014 (1.001-1.035) Urine Protein Negative (Negative) Urine Ketones Negative (Negative) Urine Blood Negative /uL (Negative) Urine Nitrite Negative (Negative) Urine Bilirubin Negative (Negative) Urine Urobilinogen Normal mg/dL (Negative) Urine Leukocyte Esterase Negative /uL (Negative) Urine RBC <1 /hpf (0 - 3) Urine Microscopic WBC 1 /HPF (0-3) Urine Squamous Epithelial Cells Few /hpf (<5) Urine Bacteria None seen /hpf (None Seen) Urine Glucose Normal mg/dL (Normal) Labs and/or images reviewed: Labs reviewed by me, Image(s) reviewed by me Assessment/Plan Assessment/Plan Impression: -large colonic mass with obstruction -sepsis -recent history of colitis Plan: -make patient NPO -start Clinimix and IV fluids -GI consultation: Appears to have plans for repeat colonoscopy -pain management -continue antibiotics with Flagyl and Levaquin -repeat labs in a.m. Total time spent with patient discussing and formulating plan of care: 35 minutes. This medical document was created using an electronic medical record system with [employer] dictation system. Although this document has been carefully reviewed, there may still be some phonetic and typographical errors. These areas are purely typographical due to imperfections of the software programs, and do not reflect any compromise in the patient's medical care. Plan discussed with: Patient, Other (RN) My Orders Orders - CARMEN VILLALPANDO NP Procedure Category Date Status Time Clinimix Per Pharmacy PHA 09/08/24 Transmitted 15:15 NS PHA 09/08/24 Transmitted 15:15 Basic Metabolic Panel LAB 09/09/24 Verified 04:00 Complete Blood Count LAB 09/09/24 Verified 04:00 Date of Service: Sep 08, 2024 Billing Provider: CARMEN VILLALPANDO NP Common Visit Codes: [id number] INP/OBS CARE(HIGH) CARMEN VILLALPANDO NP Sep 08, 2024 15:11
[2024-09-08] MEDS ORDERED: CLINIMIX PER PHARMACY 0 ML IV SCH ×2 (15:15→19:45)
[2024-09-08] MEDS: SODIUM CHLORIDE 0.9% 1,000 ML IV SCH (15:41)
--- NOTE | 2024-09-08 20:24 | DVH ---
Exam: CT CT AB PEL WITH ORAL CON ONLY History: cecal mass Comparison Study: CT abdomen and pelvis with contrast 09/07/2024 TECHNIQUE: Multidetector CT of the abdomen and pelvis without IV contrast. Oral contrast only is give n. Axial, coronal and sagittal multiplanar reformats were obtained from the axial data set by the joya hnologist. Radiation Dose Information: CT Dose: CTDI volume is 11.69 mGy. Dose-length product is 688.52 mGy*cm FINDINGS: Bibasilar atelectasis. Partially visualized heart is unremarkable. Mild hepatic steatosis. Otherwise, liver, spleen, pancreas and adrenal glands are unremarkable. There is vicarious excretion of contrast within the gallbladder. Punctate nonobstructing left renal lower pole calculus. Minimal right hydronephrosis with no obstruct ing calculus noted. Otherwise, kidneys, ureters and urinary bladder are unremarkable. Prostate measur es 3.5 x 4.6 x 5.3 cm. Mild gastric wall thickening. Mild wall thickening of the most distal ileum. Otherwise, the small keith wel loops unremarkable. Redemonstration of large masslike thickening of the cecum with contrast passa ge into the large bowel. There is associated adjacent pericecal fat stranding. Sigmoid diverticulosis without diverticulitis. No evidence of intraperitoneal free air or free fluid. No evidence of aortic aneurysm. Prominent right lower abdominal quadrant lymph nodes, largest measuring up to 1.8 cm which are most l ikely neoplastic. Small fat and Minimal fluid containing umbilical hernia. Small fat containing bilateral inguinal kalani ias. Destructive osseous lesions are noted. IMPRESSION: Large cecal mass with associated adjacent fat stranding and right lower abdominal quadrant prominent lymph nodes which are most likely neoplastic. Mild wall thickening of the most distal ileum which may be from neoplastic invasion. There is contrast passage into the large bowel. Mild gastric wall thickening which may be due to inadequate distention/gastritis. Mild hepatic steatosis. Punctate nonobstructing left renal lower pole calculus.
[2024-09-08] MEDS ORDERED: DEXTROSE (50%) 50ML SYRG IV SCH (22:00)
[2024-09-08] MEDS: AMINO ACID INFUSION IN D10W 1,000 ML IV SCH (22:14)
[2024-09-08] MEDS: InsuLIN REG 1unit/0.01ml Soln (100units/ml) SC SCH (23:54)
[2024-09-08] MEDS: ACCU-CHEK COMFORT CURVE STRIP VI SCH (23:54)
[2024-09-09] VITALS (8 sets, daily range): BP systolic 97–113; BP diastolic 54–66; PULSE 86–120; RESP 16–20; TEMP 97.6–99.1; O2SAT 90–98
[2024-09-09] MEDS ORDERED: GOLYTELY 4L KIT PO ONE (06:00)
[2024-09-09] MEDS ORDERED: MAGNESIUM CITRATE SOLUTION 300 ML BTL PO ONE (06:00)
[2024-09-09 06:44] LABS: Basophils # (auto) 0.1 10 ^3/uL (0-0.2); Eosinophils # (auto) 0.2 10 ^3/uL (0-0.8); Eosinophils % (auto) 1.6 % (0.0-7.0); Hematocrit 36.7 % (41.0-53.0); Hemoglobin 12.8 g/dL (13.5-17.5); Lymphocytes # (auto) 1.4 10 ^3/uL (0.4-5.4); Mean Corpuscular Hgb Conc. 34.9 g/dL (32.0-36.0); Monocytes # (auto) 1.5 10 ^3/uL (0-1.3); Monocytes % (auto) 14.7 % (0.0-12.0); Neutrophils % (auto) 68.7 % (37.0-80.0); Platelet Count (auto) 330 10^3/uL (140-450); Red Blood Cells 4.42 10^6/uL (4.5-5.90); Red Cell Distribution Width 13.6 % (11.8-14.3); White Blood Cell 10.2 10^3/uL (4.4-10.8)
[2024-09-09 06:57] LABS: Alanine Aminotransferase 20 U/L (7-40); Albumin 3.7 g/dL (3.2-4.8); Alkaline Phosphatase 76 U/L (46-116); Anion Gap 8 (5-15); Aspartate Aminotransferase 35 U/L (13-40); BUN/Creatinine Ratio 17.6 (10.0-20.0); Bilirubin, Total 0.7 mg/dL (0.2-1.0); Blood Urea Nitrogen 12 mg/dL (9-23); Carbon Dioxide 26 mmol/L (20-31); Chloride 101 mmol/L (98-107); Glucose 102 mg/dL (74-106); Magnesium 2.2 mg/dL (1.6-2.6); Potassium 3.6 mmol/L (3.5-5.1); Total Protein 6.1 g/dL (5.7-8.2)
[2024-09-09 07:01] LABS: Calcium 8.6 mg/dL (8.7-10.4); Phosphorus 2.3 mg/dL (2.4-5.1); Sodium 135 mmol/L (136-145)
--- NOTE | 2024-09-09 07:11 | ECG ---
[facility] Test Date: 2024-09-07 Test Time: 09:50:20 Pat Name: JOSE G TAFOYA Department: ER Room: 0295 A Gender: M Polygraph Examiner: JESSE : 1960 Requested By: TRISH FRY Order Number: [id number] Reading MD: Amadeo Culver Measurements Intervals [place] Rate: 95 P: 18 [place]: 133 QRS: -58 QRSD: 88 T: 68 QT: 327 QTc: 411 Interpretive Statements Sinus rhythm Left anterior fascicular block RSR' in V1 or V2, right VCD or RVH Electronically Signed On 09-09-2024 18:41:04 PDT by Amadeo Culver Please click the below link to view image of tracing.
[2024-09-09 07:15] LABS: INR 1.16 (0.9-1.15); Prothrombin Time 12.1 sec (9.3-11.8)
--- NOTE | 2024-09-09 07:39 | DVHPN2 ---
Progress Note - Dictate Date Seen: Sep 09, 2024 Medical Necessity Reason Pt with a Central, PICC or Fol: No Subjective Patient seen at bedside resting comfortably Patient stated his right lower quadrant abdominal pain started on Thursday Prior to that the patient was having some symptoms of bloating and some constipation CT scans both with IV and oral contrast are suspicious for a large cecal mass with the adjacent fat stranding with involvement of the lymph nodes suspicious for neoplastic process. There was also thickening of the distal ileum suspected to be involved in the neoplastic process The patient had a colonoscopy about two months ago on July 15, 2024 I have reviewed the op report and even the pictures apparently there was no cecal mass at that time The tumor may be originating in the distal ileum or small bowel Patient was seen in the ER on July [address] scan for some abdominal bloating There was no evidence of a mass lesion or tumor on that CT scan after the colonoscopy However in two months the patient now has had progression and localized extension of a large distal small bowel or cecal mass vital signs Vital Sign Date Time Temp Pulse Resp B/P (MAP) Pulse Ox O2 Delivery O2 Flow Rate FiO2 09/09/24 04:59 98.8 92 16 97/62 (74) 96 98.8 09/08/24 20:00 Room Air* 0 21 Total Intake and Output 09/08/24 09/08/24 09/09/24 15:00 23:00 07:00 Intake Total 100 ml 325 ml 1203 ml Balance 100 ml 325 ml 1203 ml medications Current Medications Medications Dose Ordered Sig/Uday Route Start Time Stop Time Status Last Admin Dose Admin Ondansetron HCl 4 mg Q4HP PRN IV 09/07/24 16:15 Metronidazole 100 ml @ 100 mls/hr Q8HR IV 09/07/24 22:00 09/09/24 05:43 100 MLS/HR Levofloxacin/ Dextrose 100 ml @ 100 mls/hr DAILY IV 09/09/24 10:00 Sodium Chloride 1,000 ml @ 75 mls/hr [id number] IV 09/08/24 15:15 09/09/24 05:45 75 MLS/HR Amino Acids/ Electrolytes/ Dextrose 1,000 ml @ 41 mls/hr DAILY@2200 IV 09/08/24 22:00 09/08/24 22:14 41 MLS/HR Diagnostic Test (Pha) 1 strip Q6HR 09/09/24 00:00 09/09/24 05:48 1 STRIP Insulin Human Regular FOLLOW SLIDING SCALE Q6HR SC 09/09/24 00:00 Dextrose 50 ml UD IV 09/08/24 22:00 Amino Acids 0 ml @ 0 mls/hr PER PHARMACY IV 09/08/24 19:45 objective General Appearance: Alert, Oriented X3, Cooperative HEENT: Atraumatic, PERRLA Lungs: Clear to auscultation, Normal air movement Cardiovascular: Normal S1, Normal S2 Abdomen: Normal bowel sounds, Soft, mild right lower quadrant tenderness, no rebound or guarding Musculoskeletal: Normal sensory function, Normal motor function Skin: Dry, Intact Psych/Mental Status: Mental status NL, Mood NL laboratory and microbiology Laboratory Tests 09/09/24 05:59 Test 09/09/24 05:59 Range/Units Serum Glucose 102 74-106 mg/dL Problems(with codes): (1) Abnormal finding on GI tract imaging (2) Cecum mass (3) Abdominal pain Prognosis Plan Keep the patient NPO He is on IV antibiotics I have started him on IV Clinimix Surgical consult this morning to decide about right colon resection for suspected cecal mass or distal ileum mass with lymph node involvement If the surgical consult requires a colonoscopy I will be standing by for a bowel prep and a repeat colonoscopy; CEA level is normal However at this time I believe doing the bowel prep and a colonoscopy might aggravate his pericecal inflammation; await surgical opinion Plan discussed with: Patient, Other (Sera Fernando) RUSS EDWARDS MD Sep 09, 2024 07:39
--- NOTE | 2024-09-09 08:47 | DVHINCON2 ---
Date of service: Sep 09, 2024 Family History: FH: myocardial infarction G8 FATHER FH: ovarian cancer G8 MOTHER Allergies: Coded Allergies: NO KNOWN ALLERGIES (Unverified , 05/08/24) Home Meds Active Scripts Promethazine-Dm (Promethazine Dm 6.25-15 mg/5Ml) 1 Marah Marah, 5 ML PO TID, #180 ML Prov:VINITA BRISENO PA 09/01/24 Pantoprazole Sodium Sesquihydr (Pantoprazole Sodium) 40 Mg Tab, 40 MG PO DAILY for 30 Days, #30 TAB Prov:TJ PALUMBO RESIDENT 07/23/24 Amoxicillin & Pot Clavulanate (Augmentin) 500 Mg Tab, 1 TAB PO BID for 5 Days, #10 TAB [facility] 07/23/24 Reported Medications Acyclovir (ZOVIRAX TABLET) 400 Mg Tb, 800 MG PA PRN, TAB 07/14/24 Current Medications Current Medications Medications (Trade) Dose Ordered Sig/Uday Route PRN Reason Start Time Stop Time Status Last Admin Levofloxacin/ Dextrose 100 ml @ 100 mls/hr DAILY IV 09/09/24 10:00 Amino Acids 0 ml @ 0 mls/hr PER PHARMACY IV 09/08/24 15:15 09/08/24 19:59 DC Sodium Chloride 1,000 ml @ 75 mls/hr [id number] IV 09/08/24 15:15 09/09/24 05:45 Amino Acids/ Electrolytes/ Dextrose 1,000 ml @ 41 mls/hr DAILY@2200 IV 09/08/24 22:00 09/08/24 22:14 Diagnostic Test (Pha) (Accu-Chek Comfort Curve T) 1 strip Q6HR 09/09/24 00:00 09/09/24 05:48 Insulin Human Regular (InsuLIN R) FOLLOW SLIDING SCALE Q6HR SC 09/09/24 00:00 Dextrose 50 ml UD IV 09/08/24 22:00 Amino Acids 0 ml @ 0 mls/hr PER PHARMACY IV 09/08/24 19:45 Vital Signs Vital Signs Date Time Temp Pulse Resp B/P (MAP) Pulse Ox O2 Delivery O2 Flow Rate FiO2 09/09/24 04:59 98.8 92 16 97/62 (74) 96 98.8 09/08/24 20:00 Room Air* 0 21 Labs/Diagnostic Data Labs Test 09/09/24 05:59 09/09/24 05:30 09/07/24 11:27 09/07/24 10:58 Range/Units White Blood Count 10.2 # 4.4-10.8 10^3/uL Red Blood Count 4.42 L 4.5-5.90 10^6/uL Hemoglobin 12.8 L 13.5-17.5 g/dL Hematocrit 36.7 L 41.0-53.0 % Mean Corpuscular Volume 83.0 80.0-100.0 fL Mean Corpuscular Hemoglobin 29.0 28.0-32.0 pg Mean Corpuscular Hemoglobin Concent 34.9 32.0-36.0 g/dL Red Cell Distribution Width 13.6 11.8-14.3 % Platelet Count 330 140-450 10^3/uL Mean Platelet Volume 7.7 6.9-10.8 fL Neutrophils (%) (Auto) 68.7 37.0-80.0 % Lymphocytes (%) (Auto) 14.0 10.0-50.0 % Monocytes (%) (Auto) 14.7 H 0.0-12.0 % Eosinophils (%) (Auto) 1.6 0.0-7.0 % Basophils (%) (Auto) 1.0 0.0-2.0 % Neutrophils # (Auto) 7.0 1.6-8.6 10 ^3/uL Lymphocytes # (Auto) 1.4 0.4-5.4 10 ^3/uL Monocytes # (Auto) 1.5 H 0-1.3 10 ^3/uL Eosinophils # (Auto) 0.2 0-0.8 10 ^3/uL Basophils # (Auto) 0.1 0-0.2 10 ^3/uL Nucleated Red Blood Cells 0.0 % Prothrombin Time 12.1 H 9.3-11.8 sec Prothrombin Time INR 1.16 H 0.9-1.15 Sodium Level 135 L 136-145 mmol/L Potassium Level 3.6 3.5-5.1 mmol/L Chloride Level 101 98-107 mmol/L Carbon Dioxide Level 26 20-31 mmol/L Anion Gap 8 5-15 Blood Urea Nitrogen 12 9-23 mg/dL Creatinine 0.68 L 0.700-1.30 mg/dL Glomerular Filtration Rate Calc 105 >90 mL/min BUN/Creatinine Ratio 17.6 10.0-20.0 Serum Glucose 102 74-106 mg/dL Calcium Level 8.6 L 8.7-10.4 mg/dL Phosphorus Level 2.3 L 2.4-5.1 mg/dL Magnesium Level 2.2 1.6-2.6 mg/dL Total Bilirubin 0.7 0.2-1.0 mg/dL Aspartate Amino Transferase (AST) 35 13-40 U/L Alanine Aminotransferase (ALT) 20 7-40 U/L Alkaline Phosphatase 76 46-116 U/L Total Protein 6.1 5.7-8.2 g/dL Albumin 3.7 3.2-4.8 g/dL POC Glucose 107 H 70-106 mg/dl Urine Color Light-yellow Yellow Urine Clarity Clear Clear Urine pH 6.0 5.0-9.0 Urine Specific [place] 1.014 1.001-1.035 Urine Protein Negative Negative Urine Ketones Negative Negative Urine Blood Negative Negative /uL Urine Nitrite Negative Negative Urine Bilirubin Negative Negative Urine Urobilinogen Normal Negative mg/dL Urine Leukocyte Esterase Negative Negative /uL Urine RBC <1 0 - 3 /hpf Urine Microscopic WBC 1 0-3 /HPF Urine Squamous Epithelial Cells Few <5 /hpf Urine Bacteria None seen None Seen /hpf Urine Glucose Normal Normal mg/dL Lipase 32 12-53 U/L Carcinoembryonic Antigen 1.12 <=5.0 ng/mL Assessment [id number] AFEBRILE VSS RLQ PAIN TENDER R/O INFLAMMATORY MASS AC ON CHRONIC APPENDICITIS R/O ILEOCOLONIC MASS PER REPEAT CT. PREVIOUS CT NEG. CONSIDER EMERGENT R COLON RESECTION POSSIBLE ILEOSTOMY DUE TO ONGOING ILEOCOLONIC OBSTRUCTION NURSE AT BEDSIDE Plan discussed with: Patient ASHER EDWARDS MD Sep 09, 2024 08:47
--- NOTE | 2024-09-09 09:40 | DVHINCON2 ---
DATE OF CONSULTATION: 09/09/2024 HISTORY OF PRESENT ILLNESS: This patient is 64 years old, coming in with right lower abdominal pain. No bowel activity today. No nausea, vomiting. No hematemesis, melena. No bleeding per rectum. PAST MEDICAL HISTORY: Questionable diabetes. No hypertension. He recently had a colonoscopy done that only showed some polyps in the colon and no major lesion that would determine the need for a biopsy and the CAT scan done around that time also did not greens picker any abnormality in the right colon. Recent CAT scan being done for his pain. Recently, the CAT scan that was done is showing possibility of a cecal mass or an ileocolonic mass, and I was asked to see him with regards to possible surgery secondary to bowel obstruction and constipation. PHYSICAL EXAMINATION: VITAL SIGNS: He is currently afebrile, stable signs. HEENT: With no evidence of pallor, cyanosis, or jaundice. NECK: Supple, nontender with no thyromegaly, lymphadenopathy. CHEST AND LUNGS: Clear. HEART: Within normal limits. ABDOMEN: Soft. He is tender in the right lower quadrant with a palpable fullness in the right lower abdomen and he is tender in that location. NEUROLOGIC: Not assessed. CLINICAL IMPRESSION: Rule out inflammatory mass in the right lower quadrant. It could be a possible acute on chronic appendicitis or possibly a cecal mass or an ileocolonic mass as well. PLAN: The plan will be to consider emergent surgery based upon his clinical condition and with the ongoing bowel obstruction and the plan will be is to consider exploratory laparotomy with possible bowel resection, colostomy of the right colon. MD NELLIE Cordero/ANTWAN/MICKY TID: [id number] RECEIPT: [id number] cc:
[2024-09-09] MEDS: levoFLOXacin 500MG 100 ML IV SCH (10:27)
[2024-09-09] MEDS: POTASSIUM PHOSPHATE 22 MEQ in SODIUM CHL 0.9% 100 ML IV ONE (12:58)
[2024-09-09] MEDS ORDERED: DexAMETHasone SOD PHOS 10MG/1ML VIAL INJ ONE (14:35)
[2024-09-09] MEDS ORDERED: MIDAZOLAM HCL 2MG/2ML 2ml VIAL (1mg/ml) ONE (14:35)
[2024-09-09] MEDS ORDERED: fentaNYL CITRATE 100 MCG/2 ML VL ONE (14:35)
[2024-09-09] MEDS ORDERED: ePHEDrine SULFATE 50 MG/ML AMP ONE (14:35)
[2024-09-09] MEDS ORDERED: ONDANSETRON HCL 4 MG/2 ML VIAL ONE (14:35)
[2024-09-09] MEDS ORDERED: HYDROmorphone HCL 2 MG/ML VL/or syr ONE (14:35)
[2024-09-09] MEDS ORDERED: KETAMINE 50mg/ML 1ml syringe ONE (14:35)
[2024-09-09] MEDS ORDERED: ROCURONIUM 10MG/ML 10ML VIAL IV ONE (14:36)
[2024-09-09] MEDS ORDERED: KETOROLAC TROMETH 30 MG/ML 1ML VIAL ONE (14:36)
[2024-09-09] MEDS ORDERED: GLYCOPYRROLATE 0.2 MG/ML 1ML VIAL ONE (14:36)
[2024-09-09] MEDS ORDERED: PROPOFOL 10 MG/ML 20 ML IV ONE (14:36)
[2024-09-09] MEDS ORDERED: LIDOCAINE HCL 100 MG/5ML (2%) SYRG INJ IV ONE (14:36)
[2024-09-09] MEDS ORDERED: ceFAZolin 1GM VL ONE (17:23)
[2024-09-09] MEDS ORDERED: SUGAMMADEX 200mg/2ml Vial (100MG/ML) IV ONE (17:48)
--- NOTE | 2024-09-09 18:24 | DVHOP2 ---
Operative Report [id number] R ILEOCECAL MASS R HEMICOLECTOMY, LYSIS OF ADHESIONS ILEOCOLONIC NASTOMOSIS EXTENSIVE LYSIS OF DENSE ADHESIONS EBL 50 CC NO DRAIN NO COMPLICATIONS TRANSFERRED TO IN A STABLE CONDITION ASHER EDWARDS MD Sep 09, 2024 18:24
[2024-09-09] MEDS ORDERED: HYDROmorphone HCL 2 MG/ML VL/or syr IV PRN (18:45)
[2024-09-09] MEDS: ONDANSETRON HCL 4 MG/2 ML VIAL IV ONE (18:45)
--- NOTE | 2024-09-09 18:47 | DVHPN2 ---
Subjective Patient continues to complain of abdominal pain, reports constipation Reviewed: Care Plan, H&P, Labs, Medications Changes from previous H/P or p: No Changes General: Per HPI Eyes: No Pain, No Vision change, No Conjunctivae inflammation, No Eyelid inflammation, No Other, No Redness ENT: No Ear pain, No Ear discharge, No Nose pain, No Nose discharge, No Nose congestion, No Mouth pain, No Mouth swelling, No Throat pain, No Throat swelling, No Other Cardiovascular: No Chest Pain, No Palpitations, No Orthopnea, No Paroxysmal Noc. Dyspnea, No Edema, No Lt Headedness, No Other Respiratory: No Cough, No Dry, No Shortness of breath, No SOB with excertion, No Wheezing, No Hemoptysis, No Pleuritic Pain, No Sputum, No Other Gastrointestinal: No Nausea, No Vomiting; Abdominal Pain; No Diarrhea; C onstipation; No Melena, No Hematochezia, No Other Genitourinary: No Dysuria, No Frequency, No Incontinence, No Hematuria, No Retention, No Other Musculoskeletal: No other, No neck pain, No shoulder pain, No arm pain, No back pain, No hand pain, No leg pain, No foot pain Skin: No Rash, No Lesions, No Jaundice, No Bruising, No Other Objective Vitals Vital Signs Date Time Temp Pulse Resp B/P (MAP) Pulse Ox O2 Delivery O2 Flow Rate FiO2 09/09/24 18:28 120 20 90 Mask 8.0 09/09/24 13:00 98.8 107/65 (79) 98.8 09/09/24 08:00 21 Intake/Output Intake and Output 09/09/24 07:00 Intake Total 1628 ml Balance 1628 ml Intake Oral 0 ml IV Total 1628 ml # Voids 7 # Bowel Movements 3 General Appearance: Alert, Oriented X3, Cooperative HEENT: Atraumatic, PERRLA Lungs: Clear to auscultation, Normal air movement Cardiovascular: Normal S1, Normal S2 Abdomen: Normal bowel sounds, Soft, No tenderness, No hepatospenomegaly Musculoskeletal: Normal sensory function, Normal motor function Skin: Dry, Intact Psych/Mental Status: Mental status NL, Mood NL Medications Current Medications Medications Dose Ordered Sig/Uday Route Start Time Stop Time Status Last Admin Dose Admin Ondansetron HCl 4 mg Q4HP PRN IV 09/07/24 16:15 Metronidazole 100 ml @ 100 mls/hr Q8HR IV 09/07/24 22:00 09/09/24 05:43 100 MLS/HR Levofloxacin/ Dextrose 100 ml @ 100 mls/hr DAILY IV 09/09/24 10:00 09/09/24 10:27 100 MLS/HR Sodium Chloride 1,000 ml @ 75 mls/hr [id number] IV 09/08/24 15:15 09/09/24 05:45 75 MLS/HR Amino Acids/ Electrolytes/ Dextrose 1,000 ml @ 41 mls/hr DAILY@2200 IV 09/08/24 22:00 09/08/24 22:14 41 MLS/HR Diagnostic Test (Pha) 1 strip Q6HR 09/09/24 00:00 09/09/24 12:23 1 STRIP Insulin Human Regular FOLLOW SLIDING SCALE Q6HR SC 09/09/24 00:00 Dextrose 50 ml UD IV 09/08/24 22:00 Amino Acids 0 ml @ 0 mls/hr PER PHARMACY IV 09/08/24 19:45 Hydromorphone HCl 0.5 mg Q10M PRN IV 09/09/24 18:45 09/09/24 19:26 UNV Laboratory Results Laboratory Tests 09/09/24 05:59 Chemistry Test 09/09/24 05:59 Albumin 3.7 g/dL (3.2-4.8) Calcium Level 8.6 mg/dL (8.7-10.4) L Magnesium Level 2.2 mg/dL (1.6-2.6) Phosphorus Level 2.3 mg/dL (2.4-5.1) L Total Protein 6.1 g/dL (5.7-8.2) Coagulation Test 09/09/24 05:59 Prothrombin Time 12.1 sec (9.3-11.8) H Prothrombin Time INR 1.16 (0.9-1.15) H LFT Test 09/09/24 05:59 Alanine Aminotransferase (ALT) 20 U/L (7-40) Alkaline Phosphatase 76 U/L (46-116) Aspartate Amino Transferase (AST) 35 U/L (13-40) Total Bilirubin 0.7 mg/dL (0.2-1.0) Urinalysis Test 09/07/24 11:27 Urine Color Light-yellow (Yellow) Urine Clarity Clear (Clear) Urine pH 6.0 (5.0-9.0) Urine Specific [place] 1.014 (1.001-1.035) Urine Protein Negative (Negative) Urine Ketones Negative (Negative) Urine Blood Negative /uL (Negative) Urine Nitrite Negative (Negative) Urine Bilirubin Negative (Negative) Urine Urobilinogen Normal mg/dL (Negative) Urine Leukocyte Esterase Negative /uL (Negative) Urine RBC <1 /hpf (0 - 3) Urine Microscopic WBC 1 /HPF (0-3) Urine Squamous Epithelial Cells Few /hpf (<5) Urine Bacteria None seen /hpf (None Seen) Urine Glucose Normal mg/dL (Normal) Labs and/or images reviewed: Labs reviewed by me, Image(s) reviewed by me Assessment/Plan Assessment/Plan Impression: -large colonic mass with obstruction -sepsis -recent history of colitis Plan: -TPN -patient was status post surgery, right hemicolectomy with removal of large right ileocecal mass -pain management -continue antibiotics with Flagyl and Levaquin -repeat labs in a.m. Total time spent with patient discussing and formulating plan of care: 35 minutes. This medical document was created using an electronic medical record system with Jing[employer] dictation system. Although this document has been carefully reviewed, there may still be some phonetic and typographical errors. These areas are purely typographical due to imperfections of the software programs, and do not reflect any compromise in the patient's medical care. Plan discussed with: Patient, Other (RN) My Orders Orders - CARMEN VILLALPANDO NP Procedure Category Date Status Time Comprehensive LAB 09/10/24 Verified Metabolic Panel 04:00 Magnesium LAB 09/10/24 Verified 04:00 Phosphorus LAB 09/10/24 Verified 04:00 Triglycerides LAB 09/10/24 Verified 04:00 Clinimix Per Pharmacy MARGY 09/09/24 In Process 22:00 Electrocardigram EKG 09/09/24 Logged 17:00 Electrocardigram EKG 09/09/24 Logged 17:00 Date of Service: Sep 09, 2024 Billing Provider: CARMEN VILLALPANDO NP Common Visit Codes: [id number] INP/OBS CARE(HIGH) CARMEN VILLALPANDO NP Sep 09, 2024 18:47
[2024-09-09] MEDS ORDERED: TPN PER PHARMACY 0 ML IV SCH (19:00)
--- NOTE | 2024-09-09 19:07 | DVHOP ---
DATE OF SURGERY: 09/09/2024 PREOPERATIVE DIAGNOSIS: Right cecal mass with lot of adhesions and possible extension into the retroperitoneum with lot of lymph node enlargement as well. POSTOPERATIVE DIAGNOSIS: Right cecal mass with lot of adhesions and possible extension into the retroperitoneum with lot of lymph node enlargement as well. PROCEDURE: Exploratory laparotomy with right hemicolectomy, primary anastomosis, and lysis of adhesions. SURGEON: Narciso Stubbs MD CIGARETTE CARTON SEALER: None. ANESTHESIA: General. ESTIMATED BLOOD LOSS: Close to 50 mL. DRAINS: No drains were used. COMPLICATIONS: No complications were encountered. DESCRIPTION OF PROCEDURE: The patient was prepped and draped in the usual sterile fashion in the supine position and a vertical midline incision was applied, was taken down to the fascia going to the right of the umbilicus supraumbilically and infraumbilically taken down to the deeper tissue. The abdomen was entered and with suitable retraction, it was realized there was a very firm and dense mass located in the right lower quadrant more extrinsic to the cecum than inside the colon itself and the small bowel loop in that location was also closely adherent to this mass and there was extension into the retroperitoneal tissues, so a suitable spot was selected in the ileum close to the ileocecal junction. It was transected using the LANA stapling device and then the hepatic flexure was taken down using the LigaSure device. The duodenum was kept out of harm's way and the transverse colon was released in this fashion. A suitable spot was selected in the transverse colon close to the hepatic flexure, it was transected using the LANA stapling device and in the right colon, it was then taken off the retroperitoneal tissues in a meticulous fashion. There is possibility of an extension of the tumor mass going into the retroperitoneum and to avoid injury to the ureter or other major nerves and vessels, it was decided not to go deeper into the location of that involvement of the tumor. So, with this being done, the mesenteric vessels were taken down using a LigaSure device and the right colon released in this fashion was then submitted for pathology. Then a [id number] staple anastomosis was carried out between the small bowel and the transverse colon and the final opening also was closed with the stapling device and reinforced with silk sutures at various locations. The small bowel was then identified all the way up to the duodenojejunal flexure and then replaced back into the abdomen. Irrigation was performed. Corrine powder was applied for the hemostasis of the right lower abdomen in the retroperitoneal location. With this being done, no further intervention was necessary. The sponge count, needle count was reported correct, and the fascia was brought together using PDS suture and the skin incision was brought together using Vicryl suture for the subcutaneous tissues and a stapling device for skin closure. Dressing was applied with Prevena dressing. The patient tolerated the procedure well and was taken back to the recovery room in stable condition. MD NELLIE Cordero/FAHAD/ROMAN TID: [id number] RECEIPT: [id number] cc: Bowen Murcia NP
[2024-09-10] VITALS (8 sets, daily range): BP systolic 100–126; BP diastolic 58–74; PULSE 76–93; RESP 17–19; TEMP 97.1–98.6; O2SAT 97–100
[2024-09-10] MEDS: MORPHINE SULFATE INJ 2 MG/ml SYRG IV PRN (01:06)
[2024-09-10 06:28] LABS: Alanine Aminotransferase 19 U/L (7-40); Alkaline Phosphatase 62 U/L (46-116); Anion Gap 8 (5-15); BUN/Creatinine Ratio 18.3 (10.0-20.0); Blood Urea Nitrogen 11 mg/dL (9-23); Carbon Dioxide 24 mmol/L (20-31); Chloride 101 mmol/L (98-107); Magnesium 1.9 mg/dL (1.6-2.6); Potassium 4.1 mmol/L (3.5-5.1); Total Protein 5.7 g/dL (5.7-8.2); Triglycerides 39 mg/dL (< 150)
[2024-09-10 06:29] LABS: Albumin 3.4 g/dL (3.2-4.8); Aspartate Aminotransferase 24 U/L (13-40); Bilirubin, Total 0.6 mg/dL (0.2-1.0); Calcium 8.5 mg/dL (8.7-10.4); Glucose 178 mg/dL (74-106); Sodium 133 mmol/L (136-145)
[2024-09-10] MEDS ORDERED: MORPHINE SULFATE INJ 2 MG/ml SYRG IV PRN (07:00)
[2024-09-10] MEDS: HYDROmorphone HCL 2 MG/ML VL/or syr IV PRN (07:47)
--- NOTE | 2024-09-10 11:04 | ECG ---
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
--- NOTE | 2024-09-10 11:05 | ECG ---
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
[2024-09-10] MEDS: LORazepam 2MG/ML-1ML VIAL IV PRN (11:08)
[2024-09-10] MEDS ORDERED: TPN PER PHARMACY 0 ML IV SCH (12:45)
--- NOTE | 2024-09-10 12:45 | DVHPN2 ---
Subjective Patient continues to complain of abdominal pain, reports constipation Reviewed: Care Plan, H&P, Labs, Medications Changes from previous H/P or p: No Changes General: Per HPI Eyes: No Pain, No Vision change, No Conjunctivae inflammation, No Eyelid inflammation, No Other, No Redness ENT: No Ear pain, No Ear discharge, No Nose pain, No Nose discharge, No Nose congestion, No Mouth pain, No Mouth swelling, No Throat pain, No Throat swelling, No Other Cardiovascular: No Chest Pain, No Palpitations, No Orthopnea, No Paroxysmal Noc. Dyspnea, No Edema, No Lt Headedness, No Other Respiratory: No Cough, No Dry, No Shortness of breath, No SOB with excertion, No Wheezing, No Hemoptysis, No Pleuritic Pain, No Sputum, No Other Gastrointestinal: No Nausea, No Vomiting; Abdominal Pain; No Diarrhea; C onstipation; No Melena, No Hematochezia, No Other Genitourinary: No Dysuria, No Frequency, No Incontinence, No Hematuria, No Retention, No Other Musculoskeletal: No other, No neck pain, No shoulder pain, No arm pain, No back pain, No hand pain, No leg pain, No foot pain Skin: No Rash, No Lesions, No Jaundice, No Bruising, No Other Objective Vitals Vital Signs Date Time Temp Pulse Resp B/P (MAP) Pulse Ox O2 Delivery O2 Flow Rate FiO2 09/10/24 11:50 76 17 100/58 09/10/24 08:40 98.4 97 98.4 09/10/24 08:00 Room Air* 0 21 Intake/Output Intake and Output 09/10/24 07:00 Intake Total 200 ml Output Total 975 ml Balance -775 ml Intake Oral 0 ml IV Total 200 ml Output Urine Total 975 ml General Appearance: Alert, Oriented X3, Cooperative HEENT: Atraumatic, PERRLA Lungs: Clear to auscultation, Normal air movement Cardiovascular: Normal S1, Normal S2 Abdomen: Normal bowel sounds, Soft, No tenderness, No hepatospenomegaly Musculoskeletal: Normal sensory function, Normal motor function Skin: Dry, Intact Psych/Mental Status: Mental status NL, Mood NL Medications Current Medications Medications Dose Ordered Sig/Uday Route Start Time Stop Time Status Last Admin Dose Admin Ondansetron HCl 4 mg Q4HP PRN IV 09/07/24 16:15 Metronidazole 100 ml @ 100 mls/hr Q8HR IV 09/07/24 22:00 09/10/24 05:18 100 MLS/HR Levofloxacin/ Dextrose 100 ml @ 100 mls/hr DAILY IV 09/09/24 10:00 09/10/24 11:08 100 MLS/HR Sodium Chloride 1,000 ml @ 75 mls/hr [id number] IV 09/08/24 15:15 09/09/24 21:42 75 MLS/HR Amino Acids/ Electrolytes/ Dextrose 1,000 ml @ 41 mls/hr DAILY@2200 IV 09/08/24 22:00 09/10/24 21:59 09/09/24 21:41 41 MLS/HR Diagnostic Test (Pha) 1 strip Q6HR 09/09/24 00:00 09/10/24 11:34 1 STRIP Insulin Human Regular FOLLOW SLIDING SCALE Q6HR SC 09/09/24 00:00 09/10/24 11:40 2 UNITS Dextrose 50 ml UD IV 09/08/24 22:00 Amino Acids 0 ml @ 0 mls/hr PER PHARMACY IV 09/09/24 19:00 Hydromorphone HCl 0.25 mg Q4HPRN PRN IV 09/10/24 07:30 09/10/24 11:50 0.25 MG Lorazepam 0.25 mg Q6HP PRN IV 09/10/24 07:30 09/10/24 11:08 0.25 MG Laboratory Results Laboratory Tests 09/09/24 05:59 09/10/24 05:33 Chemistry Test 09/10/24 05:33 Albumin 3.4 g/dL (3.2-4.8) Calcium Level 8.5 mg/dL (8.7-10.4) L Magnesium Level 1.9 mg/dL (1.6-2.6) Phosphorus Level 3.0 mg/dL (2.4-5.1) Total Protein 5.7 g/dL (5.7-8.2) Lipid panel Test 09/10/24 05:33 Triglycerides Level 39 mg/dL (< 150) LFT Test 09/10/24 05:33 Alanine Aminotransferase (ALT) 19 U/L (7-40) Alkaline Phosphatase 62 U/L (46-116) Aspartate Amino Transferase (AST) 24 U/L (13-40) Total Bilirubin 0.6 mg/dL (0.2-1.0) Urinalysis Test 09/07/24 11:27 Urine Color Light-yellow (Yellow) Urine Clarity Clear (Clear) Urine pH 6.0 (5.0-9.0) Urine Specific [place] 1.014 (1.001-1.035) Urine Protein Negative (Negative) Urine Ketones Negative (Negative) Urine Blood Negative /uL (Negative) Urine Nitrite Negative (Negative) Urine Bilirubin Negative (Negative) Urine Urobilinogen Normal mg/dL (Negative) Urine Leukocyte Esterase Negative /uL (Negative) Urine RBC <1 /hpf (0 - 3) Urine Microscopic WBC 1 /HPF (0-3) Urine Squamous Epithelial Cells Few /hpf (<5) Urine Bacteria None seen /hpf (None Seen) Urine Glucose Normal mg/dL (Normal) Assessment/Plan Assessment/Plan Impression: -large colonic mass with obstruction -sepsis -recent history of colitis Acute hypoxic respiratory failure Plan: Events: Patient placed on BiPAP yesterday evening. Now nasal cannula. Discussed plan of care with the patient. -advanced Clinimix to TPN. -continue PPI -BiPAP as needed. -pain management -continue antibiotics with Flagyl and Levaquin -repeat labs in a.m. Total time spent with patient discussing and formulating plan of care: 35 minutes. This medical document was created using an electronic medical record system with [employer] dictation system. Although this document has been carefully reviewed, there may still be some phonetic and typographical errors. These areas are purely typographical due to imperfections of the software programs, and do not reflect any compromise in the patient's medical care. Plan discussed with: Patient, Other (RN) My Orders Orders - CARMEN VILLALPANDO NP Procedure Category Date Status Time Tpn Per Pharmacy PHA 09/09/24 In Process 19:00 * Picc Line Consult CONS 09/10/24 Transmitted 12:37 Tpn Per Pharmacy PHA 09/10/24 Verified 12:45 Date of Service: Sep 10, 2024 Billing Provider: CARMEN VILLALPANDO NP Common Visit Codes: [id number] INP/OBS CARE(HIGH) CARMEN VILLALPANDO NP Sep 10, 2024 12:45
[2024-09-10] MEDS ORDERED: PPN PER PHARMACY IV NR (22:00)
[2024-09-11] VITALS (7 sets, daily range): BP systolic 104–110; BP diastolic 63–65; PULSE 88–106; RESP 17–19; TEMP 98.4–99.9; O2SAT 90–99
[2024-09-11 06:45] LABS: Alanine Aminotransferase 19 U/L (7-40); Albumin 3.4 g/dL (3.2-4.8); Alkaline Phosphatase 64 U/L (46-116); Anion Gap 6 (5-15); Aspartate Aminotransferase 21 U/L (13-40); BUN/Creatinine Ratio 20.7 (10.0-20.0); Blood Urea Nitrogen 12 mg/dL (9-23); Carbon Dioxide 28 mmol/L (20-31); Chloride 101 mmol/L (98-107); Magnesium 2.1 mg/dL (1.6-2.6); Potassium 3.6 mmol/L (3.5-5.1); Total Protein 5.7 g/dL (5.7-8.2)
[2024-09-11 06:46] LABS: Bilirubin, Total 0.5 mg/dL (0.2-1.0)
[2024-09-11 06:48] LABS: Calcium 8.2 mg/dL (8.7-10.4); Glucose 128 mg/dL (74-106); Phosphorus 1.5 mg/dL (2.4-5.1); Sodium 135 mmol/L (136-145)
--- NOTE | 2024-09-11 09:04 | DVH ---
CHEST RADIOGRAPH Indication: cough Technique: Single frontal view of the chest was obtained Comparison: XY CHEST XRAY 1 VIEW on DOS: 09/01/24 FINDINGS: The cardiac silhouette is enlarged. The lungs demonstrate perihilar and bibasilar airspace opacities. The pulmonary vasculature is prominent. Small bilateral pleural effusions. There is no pneumothorax. IMPRESSION: 1. Cardiomegaly with pulmonary vascular congestion and bilateral perihilar airspace and bibasilar air space opacities. 2. Small bilateral pleural effusions.
[2024-09-11] MEDS: LIDOCAINE 1% (LOCAL ANESTH.) PF 5ml SDV ID ONE (10:15)
[2024-09-11] MEDS: SODIUM PHOSPHATES 40 MEQ in D5W 5% 250 ML IV ONE (12:29)
--- NOTE | 2024-09-11 13:31 | DVHPN2 ---
Progress Note Date Seen: Sep 11, 2024 Medical Necessity Reason Pt with a Central, PICC or Fol: No Objective vital signs Vital Sign Date Time Temp Pulse Resp B/P (MAP) Pulse Ox O2 Delivery O2 Flow Rate FiO2 09/11/24 09:46 102 18 108/65 09/11/24 09:00 98.9 90 98.9 09/11/24 08:00 Room Air* 0 21 Total Intake and Output 09/10/24 09/10/24 09/11/24 15:00 23:00 07:00 Intake Total 300 ml 100 ml Output Total 1100 ml 1400 ml Balance -800 ml -1300 ml medications Current Medications Medications Dose Ordered Sig/Uday Route Start Time Stop Time Status Last Admin Dose Admin Ondansetron HCl 4 mg Q4HP PRN IV 09/07/24 16:15 Metronidazole 100 ml @ 100 mls/hr Q8HR IV 09/07/24 22:00 09/11/24 05:02 100 MLS/HR Levofloxacin/ Dextrose 100 ml @ 100 mls/hr DAILY IV 09/09/24 10:00 09/11/24 09:15 100 MLS/HR Sodium Chloride 1,000 ml @ 75 mls/hr [id number] IV 09/08/24 15:15 09/11/24 05:02 75 MLS/HR Amino Acids/ Electrolytes/ Dextrose 1,000 ml @ 41 mls/hr DAILY@2200 IV 09/08/24 22:00 09/11/24 21:59 09/10/24 21:00 41 MLS/HR Diagnostic Test (Pha) 1 strip Q6HR 09/09/24 00:00 09/11/24 12:04 1 STRIP Insulin Human Regular FOLLOW SLIDING SCALE Q6HR SC 09/09/24 00:00 09/11/24 00:24 2 UNITS Dextrose 50 ml UD IV 09/08/24 22:00 Amino Acids 0 ml @ 0 mls/hr PER PHARMACY IV 09/09/24 19:00 Hydromorphone HCl 0.25 mg Q4HPRN PRN IV 09/10/24 07:30 09/11/24 09:16 0.25 MG Lorazepam 0.25 mg Q6HP PRN IV 09/10/24 07:30 09/10/24 11:08 0.25 MG Amino Acids 0 ml @ 0 mls/hr PER PHARMACY IV 09/10/24 12:45 UNV Sodium Chloride 10 ml QSHIFT@10,22 IV 09/11/24 22:00 Fat Emulsion Intravenous 100 ml/Potassium Phosphate 44 meq/ Calcium Gluconate 2.3 meq/Magnesium Sulfate 8 meq/ Multivitamins 10 ml/Chromium/ Copper/Manganese/ Zinc 1 ml/Amino Acids/Dextrose 1,227.9462 ml @ 51 mls/hr Q24H5M IV 09/11/24 22:00 09/12/24 21:59 laboratory and microbiology Laboratory Tests 09/11/24 05:38 09/09/24 05:59 Test 09/11/24 05:38 Range/Units Serum Glucose 128 H 74-106 mg/dL Problem List/Assessment/Plan Problem List/Assessment/Plan AFEBRILE VSS ABD SOFT NO BM WOUND DRESSING IN PLACE CONTINUE CLOSE OBSERVATION KEEP NPO Plan discussed with: Patient Dietary Evaluation Review Comments: 1) Advance PN to meet at least 75% estimated needs 2) advance to regular diet as medically feasible 3) Continue current plan of care Expected Outcomes/Goals: Pt will meet >75% estimated needs Fu 2-3 days ASHER EDWARDS MD Sep 11, 2024 13:31
--- NOTE | 2024-09-11 14:06 | DVHPN2 ---
Subjective Patient continues to complain of abdominal pain, reports constipation Reviewed: Care Plan, H&P, Labs, Medications Changes from previous H/P or p: No Changes General: Per HPI Eyes: No Pain, No Vision change, No Conjunctivae inflammation, No Eyelid inflammation, No Other, No Redness ENT: No Ear pain, No Ear discharge, No Nose pain, No Nose discharge, No Nose congestion, No Mouth pain, No Mouth swelling, No Throat pain, No Throat swelling, No Other Cardiovascular: No Chest Pain, No Palpitations, No Orthopnea, No Paroxysmal Noc. Dyspnea, No Edema, No Lt Headedness, No Other Respiratory: No Cough, No Dry, No Shortness of breath, No SOB with excertion, No Wheezing, No Hemoptysis, No Pleuritic Pain, No Sputum, No Other Gastrointestinal: No Nausea, No Vomiting; Abdominal Pain; No Diarrhea; C onstipation; No Melena, No Hematochezia, No Other Genitourinary: No Dysuria, No Frequency, No Incontinence, No Hematuria, No Retention, No Other Musculoskeletal: No other, No neck pain, No shoulder pain, No arm pain, No back pain, No hand pain, No leg pain, No foot pain Skin: No Rash, No Lesions, No Jaundice, No Bruising, No Other Objective Vitals Vital Signs Date Time Temp Pulse Resp B/P (MAP) Pulse Ox O2 Delivery O2 Flow Rate FiO2 09/11/24 09:46 102 18 108/65 09/11/24 09:00 98.9 90 98.9 09/11/24 08:00 Room Air* 0 21 Intake/Output Intake and Output 09/11/24 07:00 Intake Total 400 ml Output Total 2500 ml Balance -2100 ml Intake Oral 0 ml IV Total 400 ml Output Urine Total 2500 ml General Appearance: Alert, Oriented X3, Cooperative HEENT: Atraumatic, PERRLA Lungs: Clear to auscultation, Normal air movement Cardiovascular: Normal S1, Normal S2 Abdomen: Normal bowel sounds, Soft, No tenderness, No hepatospenomegaly Musculoskeletal: Normal sensory function, Normal motor function Skin: Dry, Intact Psych/Mental Status: Mental status NL, Mood NL Medications Current Medications Medications Dose Ordered Sig/Uday Route Start Time Stop Time Status Last Admin Dose Admin Ondansetron HCl 4 mg Q4HP PRN IV 09/07/24 16:15 Metronidazole 100 ml @ 100 mls/hr Q8HR IV 09/07/24 22:00 09/11/24 05:02 100 MLS/HR Levofloxacin/ Dextrose 100 ml @ 100 mls/hr DAILY IV 09/09/24 10:00 09/11/24 09:15 100 MLS/HR Sodium Chloride 1,000 ml @ 75 mls/hr [id number] IV 09/08/24 15:15 09/11/24 05:02 75 MLS/HR Amino Acids/ Electrolytes/ Dextrose 1,000 ml @ 41 mls/hr DAILY@2200 IV 09/08/24 22:00 09/11/24 21:59 09/10/24 21:00 41 MLS/HR Diagnostic Test (Pha) 1 strip Q6HR 09/09/24 00:00 09/11/24 12:04 1 STRIP Insulin Human Regular FOLLOW SLIDING SCALE Q6HR SC 09/09/24 00:00 09/11/24 00:24 2 UNITS Dextrose 50 ml UD IV 09/08/24 22:00 Amino Acids 0 ml @ 0 mls/hr PER PHARMACY IV 09/09/24 19:00 Hydromorphone HCl 0.25 mg Q4HPRN PRN IV 09/10/24 07:30 09/11/24 09:16 0.25 MG Lorazepam 0.25 mg Q6HP PRN IV 09/10/24 07:30 09/10/24 11:08 0.25 MG Amino Acids 0 ml @ 0 mls/hr PER PHARMACY IV 09/10/24 12:45 UNV Sodium Chloride 10 ml QSHIFT@10,22 IV 09/11/24 22:00 Fat Emulsion Intravenous 100 ml/Potassium Phosphate 44 meq/ Calcium Gluconate 2.3 meq/Magnesium Sulfate 8 meq/ Multivitamins 10 ml/Chromium/ Copper/Manganese/ Zinc 1 ml/Amino Acids/Dextrose/ Purified Water 1,327.9462 ml @ 55 mls/hr Q24H9M IV 09/11/24 22:00 09/12/24 21:59 Laboratory Results Laboratory Tests 09/09/24 05:59 09/11/24 05:38 Chemistry Test 09/11/24 05:38 Albumin 3.4 g/dL (3.2-4.8) Calcium Level 8.2 mg/dL (8.7-10.4) L Magnesium Level 2.1 mg/dL (1.6-2.6) Phosphorus Level 1.5 mg/dL (2.4-5.1) L Total Protein 5.7 g/dL (5.7-8.2) LFT Test 09/11/24 05:38 Alanine Aminotransferase (ALT) 19 U/L (7-40) Alkaline Phosphatase 64 U/L (46-116) Aspartate Amino Transferase (AST) 21 U/L (13-40) Total Bilirubin 0.5 mg/dL (0.2-1.0) Urinalysis Test 09/07/24 11:27 Urine Color Light-yellow (Yellow) Urine Clarity Clear (Clear) Urine pH 6.0 (5.0-9.0) Urine Specific [place] 1.014 (1.001-1.035) Urine Protein Negative (Negative) Urine Ketones Negative (Negative) Urine Blood Negative /uL (Negative) Urine Nitrite Negative (Negative) Urine Bilirubin Negative (Negative) Urine Urobilinogen Normal mg/dL (Negative) Urine Leukocyte Esterase Negative /uL (Negative) Urine RBC <1 /hpf (0 - 3) Urine Microscopic WBC 1 /HPF (0-3) Urine Squamous Epithelial Cells Few /hpf (<5) Urine Bacteria None seen /hpf (None Seen) Urine Glucose Normal mg/dL (Normal) Labs and/or images reviewed: Labs reviewed by me, Image(s) reviewed by me Assessment/Plan Assessment/Plan Impression: -large colonic mass with obstruction -sepsis -recent history of colitis Acute hypoxic respiratory failure Plan: Events: Pt on RA. Complaining of cough with phlegm -TPN -Chest x ray -continue PPI -BiPAP as needed. -pain management -continue antibiotics with Flagyl and Levaquin -repeat labs in a.m. Total time spent with patient discussing and formulating plan of care: 35 minutes. This medical document was created using an electronic medical record system with [employer] dictation system. Although this document has been carefully reviewed, there may still be some phonetic and typographical errors. These areas are purely typographical due to imperfections of the software programs, and do not reflect any compromise in the patient's medical care. Plan discussed with: Patient, Other (RN) My Orders Orders - CARMEN VILLALPANDO NP Procedure Category Date Status Time Tpn Per Pharmacy [facility] 09/10/24 In Process 22:00 Nursing Protocol Picc [facility] 09/11/24 In Process 10:54 Change Dressing Prn [facility] 09/11/24 In Process 10:54 Sodium Chloride Lock PHA 09/11/24 In Process (Saline Lock Ns) 22:00 Do Not Use Picc For 09/11/24 In Process Blood Cult 10:54 May Draw Blood From [facility] 09/11/24 In Process Picc 10:54 Ok To Use Picc [facility] 09/11/24 In Process 10:54 Change Picc Dressing 09/11/24 In Process Q7 Days 10:54 Us Guided Vascular US 09/11/24 Taken Access 10:54 Sodium Phosphates PHA 09/11/24 In Process 11:45 Comprehensive LAB 09/12/24 Verified Metabolic Panel 04:00 Magnesium LAB 09/12/24 Verified 04:00 Phosphorus LAB 09/12/24 Verified 04:00 Amino Acid PHA 09/11/24 In Process Infusion... W/Fat 22:00 Chest Xray 1 View XY 09/11/24 Logged 13:05 Tpn Per Pharmacy [facility] 09/11/24 In Process 22:00 Date of Service: Sep 12, 2024 Billing Provider: CARMEN VILLALPANDO NP Common Visit Codes: [id number] INP/OBS CARE(HIGH) CARMEN VILLALPANDO NP Sep 11, 2024 14:06
--- NOTE | 2024-09-11 14:59 | DVH ---
CHEST RADIOGRAPH Indication: shortness of breath Technique: Single frontal view of the chest was obtained Comparison: XY CHEST XRAY 1 VIEW on DOS: 09/11/24, XY CHEST XRAY 1 VIEW on DOS: 09/01/24 FINDINGS: Lines and Tubes: PICC line from right arm in the place superior vena cava. Lungs: No focal consolidation. Decreased inspiratory effort when compared to 09/01/2024 Pleura: No effusion. No pneumothorax. Cardiomediastinal contours: Unremarkable Bones: No acute osseous abnormality. IMPRESSION: 1. Decreased inspiratory effort possible bibasilar atelectasis or infiltrates. 2. PICC line from right arm in place in the superior vena cava
[2024-09-11] MEDS: TPN PER PHARMACY IV NR (21:16)
[2024-09-11] MEDS: SODIUM CHLOR 0.9% PF (SALINE LOCK) 10ML VIAL/SYR IV SCH (21:21)
[2024-09-12] VITALS (7 sets, daily range): BP systolic 113–138; BP diastolic 68–72; PULSE 97–106; RESP 18–20; TEMP 97.8–99.8; O2SAT 92–97
[2024-09-12 07:26] LABS: Alanine Aminotransferase 13 U/L (7-40); Albumin 3.5 g/dL (3.2-4.8); Alkaline Phosphatase 63 U/L (46-116); Anion Gap 8 (5-15); Aspartate Aminotransferase 20 U/L (13-40); BUN/Creatinine Ratio 17.9 (10.0-20.0); Bilirubin, Total 0.6 mg/dL (0.2-1.0); Blood Urea Nitrogen 10 mg/dL (9-23); Carbon Dioxide 25 mmol/L (20-31); Chloride 99 mmol/L (98-107); Magnesium 2.1 mg/dL (1.6-2.6); Total Protein 5.8 g/dL (5.7-8.2)
[2024-09-12 07:27] LABS: Calcium 8.2 mg/dL (8.7-10.4); Glucose 128 mg/dL (74-106); Potassium 3.4 mmol/L (3.5-5.1); Sodium 132 mmol/L (136-145)
--- NOTE | 2024-09-12 12:10 | DVHPN2 ---
Subjective Patient continues to complain of abdominal pain, reports constipation Reviewed: Care Plan, H&P, Labs, Medications Changes from previous H/P or p: No Changes General: Per HPI Eyes: No Pain, No Vision change, No Conjunctivae inflammation, No Eyelid inflammation, No Other, No Redness ENT: No Ear pain, No Ear discharge, No Nose pain, No Nose discharge, No Nose congestion, No Mouth pain, No Mouth swelling, No Throat pain, No Throat swelling, No Other Cardiovascular: No Chest Pain, No Palpitations, No Orthopnea, No Paroxysmal Noc. Dyspnea, No Edema, No Lt Headedness, No Other Respiratory: No Cough, No Dry, No Shortness of breath, No SOB with excertion, No Wheezing, No Hemoptysis, No Pleuritic Pain, No Sputum, No Other Gastrointestinal: No Nausea, No Vomiting; Abdominal Pain; No Diarrhea; C onstipation; No Melena, No Hematochezia, No Other Genitourinary: No Dysuria, No Frequency, No Incontinence, No Hematuria, No Retention, No Other Musculoskeletal: No other, No neck pain, No shoulder pain, No arm pain, No back pain, No hand pain, No leg pain, No foot pain Skin: No Rash, No Lesions, No Jaundice, No Bruising, No Other Objective Vitals Vital Signs Date Time Temp Pulse Resp B/P (MAP) Pulse Ox O2 Delivery O2 Flow Rate FiO2 09/12/24 09:41 104 18 138/71 09/12/24 08:49 98.1 97 98.1 09/12/24 08:00 Nasal Cannula* 2 28 Intake/Output Intake and Output 09/12/24 07:00 Intake Total 300 ml Output Total 1200 ml Balance -900 ml IV Total 300 ml Output Urine Total 1200 ml General Appearance: Alert, Oriented X3, Cooperative HEENT: Atraumatic, PERRLA Lungs: Clear to auscultation, Normal air movement Cardiovascular: Normal S1, Normal S2 Abdomen: Normal bowel sounds, Soft, No tenderness, No hepatospenomegaly Musculoskeletal: Normal sensory function, Normal motor function Skin: Dry, Intact Psych/Mental Status: Mental status NL, Mood NL Medications Current Medications Medications Dose Ordered Sig/Uday Route Start Time Stop Time Status Last Admin Dose Admin Ondansetron HCl 4 mg Q4HP PRN IV 09/07/24 16:15 Metronidazole 100 ml @ 100 mls/hr Q8HR IV 09/07/24 22:00 09/12/24 05:12 100 MLS/HR Levofloxacin/ Dextrose 100 ml @ 100 mls/hr DAILY IV 09/09/24 10:00 09/12/24 09:41 100 MLS/HR Sodium Chloride 1,000 ml @ 75 mls/hr [id number] IV 09/08/24 15:15 09/11/24 05:02 75 MLS/HR Diagnostic Test (Pha) 1 strip Q6HR 09/09/24 00:00 09/12/24 05:13 1 STRIP Insulin Human Regular FOLLOW SLIDING SCALE Q6HR SC 09/09/24 00:00 09/12/24 05:20 2 UNITS Dextrose 50 ml UD IV 09/08/24 22:00 Amino Acids 0 ml @ 0 mls/hr PER PHARMACY IV 09/09/24 19:00 Hydromorphone HCl 0.25 mg Q4HPRN PRN IV 09/10/24 07:30 09/12/24 09:41 0.25 MG Lorazepam 0.25 mg Q6HP PRN IV 09/10/24 07:30 09/10/24 11:08 0.25 MG Amino Acids 0 ml @ 0 mls/hr PER PHARMACY IV 09/10/24 12:45 UNV Sodium Chloride 10 ml QSHIFT@10,22 IV 09/11/24 22:00 09/12/24 09:58 10 ML Fat Emulsion Intravenous 100 ml/Potassium Phosphate 44 meq/ Calcium Gluconate 2.3 meq/Magnesium Sulfate 8 meq/ Multivitamins 10 ml/Chromium/ Copper/Manganese/ Zinc 1 ml/Amino Acids/Dextrose/ Purified Water 1,327.9462 ml @ 55 mls/hr Q24H9M IV 09/11/24 22:00 09/12/24 21:59 09/11/24 21:16 55 MLS/HR Fat Emulsion Intravenous 150 ml/Sodium Chloride 40 meq/ Potassium Chloride 40 meq/ Potassium Phosphate 44 meq/ Calcium Gluconate 4.65 meq/ Magnesium Sulfate 8 meq/ Multivitamins 10 ml/Chromium/ Copper/Manganese/ Zinc 1 ml/Amino Acids/Dextrose/ Purified Water 1,563 ml @ 65 mls/hr Q24H3M IV 09/12/24 22:00 09/13/24 21:59 Laboratory Results Laboratory Tests 09/09/24 05:59 09/12/24 06:13 Chemistry Test 09/12/24 06:13 Albumin 3.5 g/dL (3.2-4.8) Calcium Level 8.2 mg/dL (8.7-10.4) L Magnesium Level 2.1 mg/dL (1.6-2.6) Phosphorus Level 2.0 mg/dL (2.4-5.1) L Total Protein 5.8 g/dL (5.7-8.2) LFT Test 09/12/24 06:13 Alanine Aminotransferase (ALT) 13 U/L (7-40) Alkaline Phosphatase 63 U/L (46-116) Aspartate Amino Transferase (AST) 20 U/L (13-40) Total Bilirubin 0.6 mg/dL (0.2-1.0) Urinalysis Test 09/07/24 11:27 Urine Color Light-yellow (Yellow) Urine Clarity Clear (Clear) Urine pH 6.0 (5.0-9.0) Urine Specific [place] 1.014 (1.001-1.035) Urine Protein Negative (Negative) Urine Ketones Negative (Negative) Urine Blood Negative /uL (Negative) Urine Nitrite Negative (Negative) Urine Bilirubin Negative (Negative) Urine Urobilinogen Normal mg/dL (Negative) Urine Leukocyte Esterase Negative /uL (Negative) Urine RBC <1 /hpf (0 - 3) Urine Microscopic WBC 1 /HPF (0-3) Urine Squamous Epithelial Cells Few /hpf (<5) Urine Bacteria None seen /hpf (None Seen) Urine Glucose Normal mg/dL (Normal) Labs and/or images reviewed: Labs reviewed by me, Image(s) reviewed by me Assessment/Plan Assessment/Plan Impression: -large colonic mass with obstruction -sepsis -recent history of colitis Acute hypoxic respiratory failure Plan: Events: Chest x-ray reviewed. Instructed patient to get out of bed and ambulate more. Reported by primary nurse that he ambulate today. Patient has been out of bed. Continues to have absent bowel sounds. Denies flatus. Pathology report not available on cecal mass. -TPN -continue PPI -surgical consultation: Recommendations appreciated. Wound VAC intact, wound well-approximated. -pain management -continue antibiotics with Flagyl and Levaquin -repeat labs in a.m. Total time spent with patient discussing and formulating plan of care: 35 minutes. This medical document was created using an electronic medical record system with [employer] computerized dictation system. Although this document has been carefully reviewed, there may still be some phonetic and typographical errors. These areas are purely typographical due to imperfections of the software programs, and do not reflect any compromise in the patient's medical care. Plan discussed with: Patient, Other (RN) My Orders Orders - CARMEN VILLALPANDO NP Procedure Category Date Status Time Chest Xray 1 View XY 09/11/24 Resulted 13:05 Tpn Per Pharmacy [facility] 09/11/24 In Process 22:00 Amino Acid PHA 09/12/24 In Process Infusion... W/Fat 22:00 Comprehensive LAB 09/13/24 Verified Metabolic Panel 04:00 Magnesium LAB 09/13/24 Verified 04:00 Phosphorus LAB 09/13/24 Verified 04:00 Tpn Per Pharmacy [facility] 09/12/24 In Process 22:00 Sodium Phosphates PHA 09/12/24 In Process 11:45 Potassium Chl PHA 09/12/24 In Process 20meq/50ml (Potassium 12:00 Date of Service: Sep 12, 2024 Billing Provider: CARMEN VILLALPANDO NP Common Visit Codes: [id number] INP/OBS CARE(HIGH) CARMEN VILLALPANDO NP Sep 12, 2024 12:09
[2024-09-12] MEDS: POTASSIUM CHL 20MEQ/50ML 50 ML IV ONE (12:23)
--- NOTE | 2024-09-12 14:34 | DVHPN2 ---
Progress Note Date Seen: Sep 12, 2024 Medical Necessity Reason Pt with a Central, PICC or Fol: No Objective vital signs Vital Sign Date Time Temp Pulse Resp B/P (MAP) Pulse Ox O2 Delivery O2 Flow Rate FiO2 09/12/24 09:41 104 18 138/71 09/12/24 08:49 98.1 97 98.1 09/12/24 08:00 Nasal Cannula* 2 28 Total Intake and Output 09/11/24 09/11/24 09/12/24 15:00 23:00 07:00 Intake Total 200 ml 100 ml Output Total 1200 ml Balance 200 ml -1100 ml medications Current Medications Medications Dose Ordered Sig/Uday Route Start Time Stop Time Status Last Admin Dose Admin Ondansetron HCl 4 mg Q4HP PRN IV 09/07/24 16:15 Metronidazole 100 ml @ 100 mls/hr Q8HR IV 09/07/24 22:00 09/12/24 05:12 100 MLS/HR Levofloxacin/ Dextrose 100 ml @ 100 mls/hr DAILY IV 09/09/24 10:00 09/12/24 09:41 100 MLS/HR Sodium Chloride 1,000 ml @ 75 mls/hr [id number] IV 09/08/24 15:15 09/12/24 12:35 75 MLS/HR Diagnostic Test (Pha) 1 strip Q6HR 09/09/24 00:00 09/12/24 12:00 1 STRIP Insulin Human Regular FOLLOW SLIDING SCALE Q6HR SC 09/09/24 00:00 09/12/24 12:25 2 UNITS Dextrose 50 ml UD IV 09/08/24 22:00 Amino Acids 0 ml @ 0 mls/hr PER PHARMACY IV 09/09/24 19:00 Hydromorphone HCl 0.25 mg Q4HPRN PRN IV 09/10/24 07:30 09/12/24 09:41 0.25 MG Lorazepam 0.25 mg Q6HP PRN IV 09/10/24 07:30 09/10/24 11:08 0.25 MG Amino Acids 0 ml @ 0 mls/hr PER PHARMACY IV 09/10/24 12:45 UNV Sodium Chloride 10 ml QSHIFT@10,22 IV 09/11/24 22:00 09/12/24 09:58 10 ML Fat Emulsion Intravenous 100 ml/Potassium Phosphate 44 meq/ Calcium Gluconate 2.3 meq/Magnesium Sulfate 8 meq/ Multivitamins 10 ml/Chromium/ Copper/Manganese/ Zinc 1 ml/Amino Acids/Dextrose/ Purified Water 1,327.9462 ml @ 55 mls/hr Q24H9M IV 09/11/24 22:00 09/12/24 21:59 09/11/24 21:16 55 MLS/HR Fat Emulsion Intravenous 150 ml/Sodium Chloride 40 meq/ Potassium Chloride 40 meq/ Potassium Phosphate 44 meq/ Calcium Gluconate 4.65 meq/ Magnesium Sulfate 8 meq/ Multivitamins 10 ml/Chromium/ Copper/Manganese/ Zinc 1 ml/Amino Acids/Dextrose/ Purified Water 1,563 ml @ 65 mls/hr Q24H3M IV 09/12/24 22:00 09/13/24 21:59 laboratory and microbiology Laboratory Tests 09/12/24 06:13 09/09/24 05:59 Test 09/12/24 06:13 Range/Units Serum Glucose 128 H 74-106 mg/dL Problem List/Assessment/Plan Problem List/Assessment/Plan AFEBRILE VSS ABD SOFT NO BM WOUND DRESSING IN PLACE CONTINUE CLOSE OBSERVATION KEEP NPO FAMILY AT BEDSIDE Plan discussed with: Patient Dietary Evaluation Review Comments: 1) Advance PN to meet at least 75% estimated needs 2) advance to regular diet as medically feasible 3) Continue current plan of care Expected Outcomes/Goals: Pt will meet >75% estimated needs Fu 2-3 days ASHER EDWARDS MD Sep 12, 2024 14:34
[2024-09-12] MEDS: SODIUM PHOSPHATES 40 MEQ in D5W 5% 250 ML IV ONE (18:46)
[2024-09-12] MEDS: TPN PER PHARMACY IV NR (22:17)
--- NOTE | 2024-09-12 22:25 | DVHPN2 ---
Progress Note - Dictate Date Seen: Sep 12, 2024 Medical Necessity Reason Pt with a Central, PICC or Fol: No Subjective Patient seen at bedside resting comfortably Postop day 3. S/P laparotomy with large tumor removal Patient has not had a bowel movement but feels that he has urgency to go vital signs Vital Sign Date Time Temp Pulse Resp B/P (MAP) Pulse Ox O2 Delivery O2 Flow Rate FiO2 09/12/24 22:19 106 18 113/69 09/12/24 21:00 98.8 92 98.8 09/12/24 08:00 Nasal Cannula* 2 28 Total Intake and Output 09/11/24 09/11/24 09/12/24 15:00 23:00 07:00 Intake Total 200 ml 100 ml Output Total 1200 ml Balance 200 ml -1100 ml medications Current Medications Medications Dose Ordered Sig/Uday Route Start Time Stop Time Status Last Admin Dose Admin Ondansetron HCl 4 mg Q4HP PRN IV 09/07/24 16:15 Metronidazole 100 ml @ 100 mls/hr Q8HR IV 09/07/24 22:00 09/12/24 21:58 100 MLS/HR Levofloxacin/ Dextrose 100 ml @ 100 mls/hr DAILY IV 09/09/24 10:00 09/12/24 09:41 100 MLS/HR Sodium Chloride 1,000 ml @ 75 mls/hr [id number] IV 09/08/24 15:15 09/12/24 12:35 75 MLS/HR Diagnostic Test (Pha) 1 strip Q6HR 09/09/24 00:00 09/12/24 17:30 1 STRIP Insulin Human Regular FOLLOW SLIDING SCALE Q6HR SC 09/09/24 00:00 09/12/24 12:25 2 UNITS Dextrose 50 ml UD IV 09/08/24 22:00 Amino Acids 0 ml @ 0 mls/hr PER PHARMACY IV 09/09/24 19:00 Hydromorphone HCl 0.25 mg Q4HPRN PRN IV 09/10/24 07:30 09/12/24 22:19 0.25 MG Lorazepam 0.25 mg Q6HP PRN IV 09/10/24 07:30 09/10/24 11:08 0.25 MG Amino Acids 0 ml @ 0 mls/hr PER PHARMACY IV 09/10/24 12:45 UNV Sodium Chloride 10 ml QSHIFT@10,22 IV 09/11/24 22:00 09/12/24 21:59 10 ML Fat Emulsion Intravenous 150 ml/Sodium Chloride 40 meq/ Potassium Chloride 40 meq/ Potassium Phosphate 44 meq/ Calcium Gluconate 4.65 meq/ Magnesium Sulfate 8 meq/ Multivitamins 10 ml/Chromium/ Copper/Manganese/ Zinc 1 ml/Amino Acids/Dextrose/ Purified Water 1,563 ml @ 65 mls/hr Q24H3M IV 09/12/24 22:00 09/13/24 21:59 09/12/24 22:17 65 MLS/HR objective General Appearance: Alert, Oriented X3, Cooperative HEENT: Atraumatic, PERRLA Lungs: Clear to auscultation, Normal air movement Cardiovascular: Normal S1, Normal S2 Abdomen: Normal bowel sounds, dressing dry, binder in place Musculoskeletal: Normal sensory function, Normal motor function Skin: Dry, Intact Psych/Mental Status: Mental status NL, Mood NL laboratory and microbiology Laboratory Tests 09/12/24 06:13 09/09/24 05:59 Test 09/12/24 06:13 Range/Units Serum Glucose 128 H 74-106 mg/dL Problems(with codes): (1) Abnormal finding on GI tract imaging (2) Cecum mass (3) Abdominal pain Prognosis Plan NPO IV TPN IV antibiotics Await final pathology results Supportive care Prognosis remains guarded due to 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
[2024-09-13] VITALS (9 sets, daily range): BP systolic 121–132; BP diastolic 62–78; PULSE 83–105; RESP 16–19; TEMP 97.9–98.7; O2SAT 91–98
[2024-09-13 08:05] LABS: Alanine Aminotransferase 13 U/L (7-40); Alkaline Phosphatase 61 U/L (46-116); Anion Gap 5 (5-15); BUN/Creatinine Ratio 26.3 (10.0-20.0); Blood Urea Nitrogen 15 mg/dL (9-23); Carbon Dioxide 26 mmol/L (20-31); Chloride 101 mmol/L (98-107); Magnesium 2.1 mg/dL (1.6-2.6); Potassium 3.5 mmol/L (3.5-5.1)
[2024-09-13 08:06] LABS: Albumin 3.3 g/dL (3.2-4.8); Aspartate Aminotransferase 14 U/L (13-40); Calcium 8.3 mg/dL (8.7-10.4); Glucose 164 mg/dL (74-106); Sodium 132 mmol/L (136-145); Total Protein 5.6 g/dL (5.7-8.2)
[2024-09-13 08:07] LABS: Bilirubin, Total 0.6 mg/dL (0.2-1.0)
[2024-09-13 08:08] LABS: Phosphorus 2.2 mg/dL (2.4-5.1)
--- NOTE | 2024-09-13 17:06 | DVHPN2 ---
Progress Note Date Seen: Sep 13, 2024 Medical Necessity Reason Pt with a Central, PICC or Fol: No Objective vital signs Vital Sign Date Time Temp Pulse Resp B/P (MAP) Pulse Ox O2 Delivery O2 Flow Rate FiO2 09/13/24 16:30 98.7 100 18 121/71 (88) 97 98.7 09/13/24 10:00 Nasal Cannula* 2 28 Total Intake and Output 09/12/24 09/12/24 09/13/24 14:59 22:59 06:59 Intake Total 100 ml 250 ml 360 ml Output Total 300 ml 200 ml Balance 100 ml -50 ml 160 ml medications Current Medications Medications Dose Ordered Sig/Uday Route Start Time Stop Time Status Last Admin Dose Admin Ondansetron HCl 4 mg Q4HP PRN IV 09/07/24 16:15 Metronidazole 100 ml @ 100 mls/hr Q8HR IV 09/07/24 22:00 09/13/24 15:52 100 MLS/HR Levofloxacin/ Dextrose 100 ml @ 100 mls/hr DAILY IV 09/09/24 10:00 09/13/24 10:35 100 MLS/HR Sodium Chloride 1,000 ml @ 75 mls/hr [id number] IV 09/08/24 15:15 09/13/24 05:02 75 MLS/HR Diagnostic Test (Pha) 1 strip Q6HR 09/09/24 00:00 09/13/24 12:00 1 STRIP Insulin Human Regular FOLLOW SLIDING SCALE Q6HR SC 09/09/24 00:00 09/13/24 12:41 8 UNITS Dextrose 50 ml UD IV 09/08/24 22:00 Amino Acids 0 ml @ 0 mls/hr PER PHARMACY IV 09/09/24 19:00 Hydromorphone HCl 0.25 mg Q4HPRN PRN IV 09/10/24 07:30 09/13/24 15:52 0.25 MG Lorazepam 0.25 mg Q6HP PRN IV 09/10/24 07:30 09/10/24 11:08 0.25 MG Amino Acids 0 ml @ 0 mls/hr PER PHARMACY IV 09/10/24 12:45 UNV Sodium Chloride 10 ml QSHIFT@10,22 IV 09/11/24 22:00 09/13/24 10:00 10 ML Fat Emulsion Intravenous 150 ml/Sodium Chloride 40 meq/ Potassium Chloride 40 meq/ Potassium Phosphate 44 meq/ Calcium Gluconate 4.65 meq/ Magnesium Sulfate 8 meq/ Multivitamins 10 ml/Chromium/ Copper/Manganese/ Zinc 1 ml/Amino Acids/Dextrose/ Purified Water 1,563 ml @ 65 mls/hr Q24H3M IV 09/12/24 22:00 09/13/24 21:59 09/12/24 22:17 65 MLS/HR Fat Emulsion Intravenous 150 ml/Sodium Phosphate 50 meq/ Potassium Chloride 80 meq/ Potassium Acetate 10 meq/Calcium Gluconate 4.65 meq/Magnesium Sulfate 12 meq/ Multivitamins 10 ml/Chromium/ Copper/Manganese/ Zinc 1 ml/Amino Acids/Dextrose 1,531.5 ml @ 64 mls/hr [id number] IV 09/13/24 22:00 09/14/24 21:59 laboratory and microbiology Laboratory Tests 09/13/24 06:48 09/09/24 05:59 Test 09/13/24 06:48 Range/Units Serum Glucose 164 H 74-106 mg/dL Problem List/Assessment/Plan Problem List/Assessment/Plan AFEBRILE VSS ABD SOFT BM +FLATUS + WOUND DRESSING IN PLACE CONTINUE CLOSE OBSERVATION ALLOW CLEAR LIQUIDS FAMILY AT BEDSIDE Plan discussed with: Patient Dietary Evaluation Review Comments: 1) Advance PN to meet at least 75% estimated needs 2) advance to regular diet as medically feasible 3) Continue current plan of care Expected Outcomes/Goals: Pt will meet >75% estimated needs Fu 2-3 days ASHER EDWARDS MD Sep 13, 2024 17:06
[2024-09-13] MEDS: POTASSIUM PHOSPHATE 22 MEQ in SODIUM CHL 0.9% 100 ML IV ONE (18:22)
--- NOTE | 2024-09-13 19:30 | DVHPN2 ---
Subjective in bed resting Reviewed: Care Plan, H&P, Labs, Medications Changes from previous H/P or p: No Changes General: Per HPI Eyes: No Pain, No Vision change, No Conjunctivae inflammation, No Eyelid inflammation, No Other, No Redness ENT: No Ear pain, No Ear discharge, No Nose pain, No Nose discharge, No Nose congestion, No Mouth pain, No Mouth swelling, No Throat pain, No Throat swelling, No Other Cardiovascular: No Chest Pain, No Palpitations, No Orthopnea, No Paroxysmal Noc. Dyspnea, No Edema, No Lt Headedness, No Other Respiratory: No Cough, No Dry, No Shortness of breath, No SOB with excertion, No Wheezing, No Hemoptysis, No Pleuritic Pain, No Sputum, No Other Gastrointestinal: No Nausea, No Vomiting; Abdominal Pain; No Diarrhea; C onstipation; No Melena, No Hematochezia, No Other Genitourinary: No Dysuria, No Frequency, No Incontinence, No Hematuria, No Retention, No Other Musculoskeletal: No other, No neck pain, No shoulder pain, No arm pain, No back pain, No hand pain, No leg pain, No foot pain Skin: No Rash, No Lesions, No Jaundice, No Bruising, No Other Objective Vitals Vital Signs Date Time Temp Pulse Resp B/P (MAP) Pulse Ox O2 Delivery O2 Flow Rate FiO2 09/13/24 16:30 98.7 100 18 121/71 (88) 97 98.7 09/13/24 10:00 Nasal Cannula* 2 28 Intake/Output Intake and Output 09/13/24 07:00 Intake Total 710 ml Output Total 500 ml Balance 210 ml Intake Oral 0 ml IV Total 710 ml Output Urine Total 500 ml # Voids 2 General Appearance: Alert, Oriented X3, Cooperative HEENT: Atraumatic, PERRLA Lungs: Clear to auscultation, Normal air movement Cardiovascular: Normal S1, Normal S2 Abdomen: Normal bowel sounds, Soft, No tenderness, No hepatospenomegaly Musculoskeletal: Normal sensory function, Normal motor function Skin: Dry, Intact Psych/Mental Status: Mental status NL, Mood NL Medications Current Medications Medications Dose Ordered Sig/Uday Route Start Time Stop Time Status Last Admin Dose Admin Ondansetron HCl 4 mg Q4HP PRN IV 09/07/24 16:15 Metronidazole 100 ml @ 100 mls/hr Q8HR IV 09/07/24 22:00 09/13/24 15:52 100 MLS/HR Levofloxacin/ Dextrose 100 ml @ 100 mls/hr DAILY IV 09/09/24 10:00 09/13/24 10:35 100 MLS/HR Sodium Chloride 1,000 ml @ 75 mls/hr [id number] IV 09/08/24 15:15 09/13/24 15:15 75 MLS/HR Diagnostic Test (Pha) 1 strip Q6HR 09/09/24 00:00 09/13/24 18:22 1 STRIP Insulin Human Regular FOLLOW SLIDING SCALE Q6HR SC 09/09/24 00:00 09/13/24 18:26 4 UNITS Dextrose 50 ml UD IV 09/08/24 22:00 Amino Acids 0 ml @ 0 mls/hr PER PHARMACY IV 09/09/24 19:00 Hydromorphone HCl 0.25 mg Q4HPRN PRN IV 09/10/24 07:30 09/13/24 15:52 0.25 MG Lorazepam 0.25 mg Q6HP PRN IV 09/10/24 07:30 09/10/24 11:08 0.25 MG Amino Acids 0 ml @ 0 mls/hr PER PHARMACY IV 09/10/24 12:45 UNV Sodium Chloride 10 ml QSHIFT@10,22 IV 09/11/24 22:00 09/13/24 10:00 10 ML Fat Emulsion Intravenous 150 ml/Sodium Chloride 40 meq/ Potassium Chloride 40 meq/ Potassium Phosphate 44 meq/ Calcium Gluconate 4.65 meq/ Magnesium Sulfate 8 meq/ Multivitamins 10 ml/Chromium/ Copper/Manganese/ Zinc 1 ml/Amino Acids/Dextrose/ Purified Water 1,563 ml @ 65 mls/hr Q24H3M IV 09/12/24 22:00 09/13/24 21:59 09/12/24 22:17 65 MLS/HR Fat Emulsion Intravenous 150 ml/Sodium Phosphate 50 meq/ Potassium Chloride 80 meq/ Potassium Acetate 10 meq/Calcium Gluconate 4.65 meq/Magnesium Sulfate 12 meq/ Multivitamins 10 ml/Chromium/ Copper/Manganese/ Zinc 1 ml/Amino Acids/Dextrose 1,531.5 ml @ 64 mls/hr [id number] IV 09/13/24 22:00 09/14/24 21:59 Laboratory Results Laboratory Tests 09/09/24 05:59 09/13/24 06:48 Chemistry Test 09/13/24 06:48 Albumin 3.3 g/dL (3.2-4.8) Calcium Level 8.3 mg/dL (8.7-10.4) L Magnesium Level 2.1 mg/dL (1.6-2.6) Phosphorus Level 2.2 mg/dL (2.4-5.1) L Total Protein 5.6 g/dL (5.7-8.2) L LFT Test 09/13/24 06:48 Alanine Aminotransferase (ALT) 13 U/L (7-40) Alkaline Phosphatase 61 U/L (46-116) Aspartate Amino Transferase (AST) 14 U/L (13-40) Total Bilirubin 0.6 mg/dL (0.2-1.0) Urinalysis Test 09/07/24 11:27 Urine Color Light-yellow (Yellow) Urine Clarity Clear (Clear) Urine pH 6.0 (5.0-9.0) Urine Specific [place] 1.014 (1.001-1.035) Urine Protein Negative (Negative) Urine Ketones Negative (Negative) Urine Blood Negative /uL (Negative) Urine Nitrite Negative (Negative) Urine Bilirubin Negative (Negative) Urine Urobilinogen Normal mg/dL (Negative) Urine Leukocyte Esterase Negative /uL (Negative) Urine RBC <1 /hpf (0 - 3) Urine Microscopic WBC 1 /HPF (0-3) Urine Squamous Epithelial Cells Few /hpf (<5) Urine Bacteria None seen /hpf (None Seen) Urine Glucose Normal mg/dL (Normal) Assessment/Plan Assessment/Plan -large colonic mass with obstruction -sepsis -recent history of colitis Acute hypoxic respiratory failure Plan: Events: Chest x-ray reviewed. Instructed patient to get out of bed and ambulate more. Reported by primary nurse that he ambulate today. Patient has been out of bed. Continues to have absent bowel sounds. Denies flatus. Pathology report not available on cecal mass. -TPN -continue PPI -surgical consultation: Recommendations appreciated. Wound VAC intact, wound well-approximated. -pain management -continue antibiotics with Flagyl and Levaquin -repeat labs in a.m. Total time spent with patient discussing and formulating plan of care: 35 minutes. Plan discussed with: Patient Date of Service: Sep 13, 2024 Billing Provider: AMAURY FIELDS MD Common Visit Codes: [id number] INP/OBS CARE(HIGH) AMAURY FIELDS MD Sep 13, 2024 19:30
--- NOTE | 2024-09-13 20:59 | DVHPN2 ---
Progress Note - Dictate Date Seen: Sep 13, 2024 Medical Necessity Reason Pt with a Central, PICC or Fol: No Subjective Postop day 4. S/P laparotomy with large tumor removal Patient has moved his bowels positive flatus Mild postop abdominal pain vital signs Vital Sign Date Time Temp Pulse Resp B/P (MAP) Pulse Ox O2 Delivery O2 Flow Rate FiO2 09/13/24 20:38 105 16 123/75 09/13/24 16:30 98.7 97 98.7 09/13/24 10:00 Nasal Cannula* 2 28 Total Intake and Output 09/12/24 09/12/24 09/13/24 15:00 23:00 07:00 Intake Total 100 ml 250 ml 360 ml Output Total 300 ml 200 ml Balance 100 ml -50 ml 160 ml medications Current Medications Medications Dose Ordered Sig/Uday Route Start Time Stop Time Status Last Admin Dose Admin Ondansetron HCl 4 mg Q4HP PRN IV 09/07/24 16:15 Metronidazole 100 ml @ 100 mls/hr Q8HR IV 09/07/24 22:00 09/13/24 15:52 100 MLS/HR Levofloxacin/ Dextrose 100 ml @ 100 mls/hr DAILY IV 09/09/24 10:00 09/13/24 10:35 100 MLS/HR Sodium Chloride 1,000 ml @ 75 mls/hr [id number] IV 09/08/24 15:15 09/13/24 15:15 75 MLS/HR Diagnostic Test (Pha) 1 strip Q6HR 09/09/24 00:00 09/13/24 18:22 1 STRIP Insulin Human Regular FOLLOW SLIDING SCALE Q6HR SC 09/09/24 00:00 09/13/24 18:26 4 UNITS Dextrose 50 ml UD IV 09/08/24 22:00 Amino Acids 0 ml @ 0 mls/hr PER PHARMACY IV 09/09/24 19:00 Hydromorphone HCl 0.25 mg Q4HPRN PRN IV 09/10/24 07:30 09/13/24 20:38 0.25 MG Lorazepam 0.25 mg Q6HP PRN IV 09/10/24 07:30 09/10/24 11:08 0.25 MG Amino Acids 0 ml @ 0 mls/hr PER PHARMACY IV 09/10/24 12:45 UNV Sodium Chloride 10 ml QSHIFT@10,22 IV 09/11/24 22:00 09/13/24 10:00 10 ML Fat Emulsion Intravenous 150 ml/Sodium Chloride 40 meq/ Potassium Chloride 40 meq/ Potassium Phosphate 44 meq/ Calcium Gluconate 4.65 meq/ Magnesium Sulfate 8 meq/ Multivitamins 10 ml/Chromium/ Copper/Manganese/ Zinc 1 ml/Amino Acids/Dextrose/ Purified Water 1,563 ml @ 65 mls/hr Q24H3M IV 09/12/24 22:00 09/13/24 21:59 09/12/24 22:17 65 MLS/HR Fat Emulsion Intravenous 150 ml/Sodium Phosphate 50 meq/ Potassium Chloride 80 meq/ Potassium Acetate 10 meq/Calcium Gluconate 4.65 meq/Magnesium Sulfate 12 meq/ Multivitamins 10 ml/Chromium/ Copper/Manganese/ Zinc 1 ml/Amino Acids/Dextrose 1,531.5 ml @ 64 mls/hr [id number] IV 09/13/24 22:00 09/14/24 21:59 objective General Appearance: Alert, Oriented X3, Cooperative HEENT: Atraumatic, PERRLA Lungs: Clear to auscultation, Normal air movement Cardiovascular: Normal S1, Normal S2 Abdomen: Normal bowel sounds, dressing dry, binder in place Musculoskeletal: Normal sensory function, Normal motor function Skin: Dry, Intact Psych/Mental Status: Mental status NL, Mood NL laboratory and microbiology Laboratory Tests 09/13/24 06:48 09/09/24 05:59 Test 09/13/24 06:48 Range/Units Serum Glucose 164 H 74-106 mg/dL Problems(with codes): (1) Abnormal finding on GI tract imaging (2) Cecum mass (3) Abdominal pain Prognosis Plan Patient has been started on clear liquid diet Physical therapy and ambulate patient Await final pathology results IV fluids, IV antibiotics, IV PPI Dietary Evaluation Review Comments: 1) Advance PN to meet at least 75% estimated needs 2) advance to regular diet as medically feasible 3) Continue current plan of care Expected Outcomes/Goals: Pt will meet >75% estimated needs Fu 2-3 days Plan discussed with: Patient RUSS EDWARDS MD Sep 13, 2024 20:59
[2024-09-13] MEDS: TPN PER PHARMACY IV NR (22:03)
[2024-09-14] VITALS (7 sets, daily range): BP systolic 117–131; BP diastolic 63–72; PULSE 93–100; RESP 17–20; TEMP 97.4–98.9; O2SAT 90–96
[2024-09-14 07:43] LABS: Basophils # (auto) 0 10 ^3/uL (0-0.2); Basophils % (auto) 0.4 % (0.0-2.0); Eosinophils # (auto) 0.1 10 ^3/uL (0-0.8); Eosinophils % (auto) 1.3 % (0.0-7.0); Hematocrit 34.1 % (41.0-53.0); Hemoglobin 11.7 g/dL (13.5-17.5); Lymphocytes # (auto) 1.1 10 ^3/uL (0.4-5.4); Lymphocytes % (auto) 9.6 % (10.0-50.0); Mean Corpuscular Hemoglobin 28.4 pg (28.0-32.0); Mean Corpuscular Hgb Conc. 34.3 g/dL (32.0-36.0); Mean Corpuscular Volume 82.6 fL (80.0-100.0); Monocytes # (auto) 1.6 10 ^3/uL (0-1.3); Monocytes % (auto) 14.1 % (0.0-12.0); Neutrophils # (auto) 8.2 10 ^3/uL (1.6-8.6); Neutrophils % (auto) 74.6 % (37.0-80.0); Platelet Count (auto) 339 10^3/uL (140-450); Red Blood Cells 4.13 10^6/uL (4.5-5.90); Red Cell Distribution Width 14.1 % (11.8-14.3)
[2024-09-14 07:46] LABS: Chloride 102 mmol/L (98-107); Potassium 3.8 mmol/L (3.5-5.1)
[2024-09-14 07:47] LABS: Anion Gap 7 (5-15); Carbon Dioxide 27 mmol/L (20-31)
[2024-09-14 07:48] LABS: Calcium 8.4 mg/dL (8.7-10.4); Sodium 136 mmol/L (136-145)
[2024-09-14 07:52] LABS: Albumin 3.2 g/dL (3.2-4.8); GFR African American 194 mL/min; GFR Non-African American 160 mL/min
[2024-09-14 07:53] LABS: BUN/Creatinine Ratio 36.4 (10.0-20.0); Blood Urea Nitrogen 20 mg/dL (9-23); Glucose 150 mg/dL (74-106); Magnesium 2.1 mg/dL (1.6-2.6)
[2024-09-14 07:55] LABS: Phosphorus 2.2 mg/dL (2.4-5.1)
[2024-09-14] MEDS: SODIUM PHOSPHATES 20 MEQ in SODIUM CHL 0.9% 100 ML IV ONE (10:40)
--- NOTE | 2024-09-14 15:18 | DVHPN2 ---
Subjective In his abdominal pain. Now reporting flatus and positive bowel movement. Reviewed: Care Plan, H&P, Labs, Medications Changes from previous H/P or p: Changes General: Per HPI Eyes: No Pain, No Vision change, No Conjunctivae inflammation, No Eyelid inflammation, No Other, No Redness ENT: No Ear pain, No Ear discharge, No Nose pain, No Nose discharge, No Nose congestion, No Mouth pain, No Mouth swelling, No Throat pain, No Throat swelling, No Other Cardiovascular: No Chest Pain, No Palpitations, No Orthopnea, No Paroxysmal Noc. Dyspnea, No Edema, No Lt Headedness, No Other Respiratory: No Cough, No Dry, No Shortness of breath, No SOB with excertion, No Wheezing, No Hemoptysis, No Pleuritic Pain, No Sputum, No Other Gastrointestinal: No Nausea, No Vomiting; Abdominal Pain; No Diarrhea; C onstipation; No Melena, No Hematochezia, No Other Genitourinary: No Dysuria, No Frequency, No Incontinence, No Hematuria, No Retention, No Other Musculoskeletal: No other, No neck pain, No shoulder pain, No arm pain, No back pain, No hand pain, No leg pain, No foot pain Skin: No Rash, No Lesions, No Jaundice, No Bruising, No Other Objective Vitals Vital Signs Date Time Temp Pulse Resp B/P (MAP) Pulse Ox O2 Delivery O2 Flow Rate FiO2 09/14/24 13:30 98.6 100 18 119/68 (85) 92 98.6 09/14/24 08:00 Room Air* 0 21 Intake/Output Intake and Output 09/14/24 07:00 Intake Total 1200 ml Output Total 500 ml Balance 700 ml Intake Oral 800 ml IV Total 400 ml Output Urine Total 500 ml # Voids 2 General Appearance: Alert, Oriented X3, Cooperative HEENT: Atraumatic, PERRLA Lungs: Clear to auscultation, Normal air movement Cardiovascular: Normal S1, Normal S2 Abdomen: Normal bowel sounds, Soft, No tenderness, No hepatospenomegaly Musculoskeletal: Normal sensory function, Normal motor function Skin: Dry, Intact Psych/Mental Status: Mental status NL, Mood NL Medications Current Medications Medications Dose Ordered Sig/Duay Route Start Time Stop Time Status Last Admin Dose Admin Ondansetron HCl 4 mg Q4HP PRN IV 09/07/24 16:15 Metronidazole 100 ml @ 100 mls/hr Q8HR IV 09/07/24 22:00 09/14/24 15:05 100 MLS/HR Levofloxacin/ Dextrose 100 ml @ 100 mls/hr DAILY IV 09/09/24 10:00 09/14/24 09:18 100 MLS/HR Sodium Chloride 1,000 ml @ 75 mls/hr [id number] IV 09/08/24 15:15 09/14/24 02:32 75 MLS/HR Diagnostic Test (Pha) 1 strip Q6HR 09/09/24 00:00 09/14/24 11:24 1 STRIP Insulin Human Regular FOLLOW SLIDING SCALE Q6HR SC 09/09/24 00:00 09/14/24 12:24 2 UNITS Dextrose 50 ml UD IV 09/08/24 22:00 Amino Acids 0 ml @ 0 mls/hr PER PHARMACY IV 09/09/24 19:00 Hydromorphone HCl 0.25 mg Q4HPRN PRN IV 09/10/24 07:30 09/14/24 12:23 0.25 MG Lorazepam 0.25 mg Q6HP PRN IV 09/10/24 07:30 09/10/24 11:08 0.25 MG Amino Acids 0 ml @ 0 mls/hr PER PHARMACY IV 09/10/24 12:45 UNV Sodium Chloride 10 ml QSHIFT@10,22 IV 09/11/24 22:00 09/14/24 09:19 10 ML Fat Emulsion Intravenous 150 ml/Sodium Phosphate 50 meq/ Potassium Chloride 80 meq/ Potassium Acetate 10 meq/Calcium Gluconate 4.65 meq/Magnesium Sulfate 12 meq/ Multivitamins 10 ml/Chromium/ Copper/Manganese/ Zinc 1 ml/Amino Acids/Dextrose 1,531.5 ml @ 64 mls/hr [id number] IV 09/13/24 22:00 09/14/24 21:59 09/13/24 22:03 64 MLS/HR Fat Emulsion Intravenous 150 ml/Sodium Phosphate 50 meq/ Potassium Chloride 60 meq/ Calcium Gluconate 4.65 meq/ Magnesium Sulfate 12 meq/ Multivitamins 10 ml/Chromium/ Copper/Manganese/ Zinc 1 ml/Amino Acids/Dextrose 1,566.5 ml @ 65 mls/hr Q24H6M IV 09/14/24 22:00 09/15/24 21:59 Laboratory Results Laboratory Tests 09/14/24 05:56 Chemistry Test 09/14/24 05:56 Albumin 3.2 g/dL (3.2-4.8) Calcium Level 8.4 mg/dL (8.7-10.4) L Magnesium Level 2.1 mg/dL (1.6-2.6) Phosphorus Level 2.2 mg/dL (2.4-5.1) L Urinalysis Test 09/07/24 11:27 Urine Color Light-yellow (Yellow) Urine Clarity Clear (Clear) Urine pH 6.0 (5.0-9.0) Urine Specific [place] 1.014 (1.001-1.035) Urine Protein Negative (Negative) Urine Ketones Negative (Negative) Urine Blood Negative /uL (Negative) Urine Nitrite Negative (Negative) Urine Bilirubin Negative (Negative) Urine Urobilinogen Normal mg/dL (Negative) Urine Leukocyte Esterase Negative /uL (Negative) Urine RBC <1 /hpf (0 - 3) Urine Microscopic WBC 1 /HPF (0-3) Urine Squamous Epithelial Cells Few /hpf (<5) Urine Bacteria None seen /hpf (None Seen) Urine Glucose Normal mg/dL (Normal) Labs and/or images reviewed: Labs reviewed by me, Image(s) reviewed by me Assessment/Plan Assessment/Plan Impression: -large colonic mass with obstruction -sepsis -recent history of colitis Acute hypoxic respiratory failure Plan: Events: Patient now passing bowels. A minimal activity, stating he does get up to the commode. Pathology report not back yet. -TPN -continue PPI -surgical consultation: Recommendations appreciated. Wound VAC intact, wound well-approximated. -pain management -continue antibiotics with Flagyl and Levaquin -repeat labs in a.m. Total time spent with patient discussing and formulating plan of care: 35 minutes. This medical document was created using an electronic medical record system with [employer] dictation system. Although this document has been carefully reviewed, there may still be some phonetic and typographical errors. These areas are purely typographical due to imperfections of the software programs, and do not reflect any compromise in the patient's medical care. Plan discussed with: Patient, Other (RN) My Orders Orders - CARMEN VILLALPANDO NP Procedure Category Date Status Time Amino Acid PHA 4/9/25 In Process Infusion... W/Fat 22:00 Comprehensive LAB 09/15/24 Verified Metabolic Panel 04:00 Magnesium LAB 09/15/24 Verified 04:00 Phosphorus LAB 09/15/24 Verified 04:00 Tpn Per Pharmacy [facility] 09/14/24 In Process 22:00 Date of Service: Sep 14, 2024 Billing Provider: CARMEN VILLALPANDO NP Common Visit Codes: [id number] INP/OBS CARE(HIGH) CARMEN VILLALPANDO NP Sep 14, 2024 15:18
--- NOTE | 2024-09-14 15:29 | DVHPN2 ---
Progress Note Date Seen: Sep 14, 2024 Medical Necessity Reason Pt with a Central, PICC or Fol: No Objective vital signs Vital Sign Date Time Temp Pulse Resp B/P (MAP) Pulse Ox O2 Delivery O2 Flow Rate FiO2 09/14/24 13:30 98.6 100 18 119/68 (85) 92 98.6 09/14/24 08:00 Room Air* 0 21 Total Intake and Output 09/13/24 09/13/24 09/14/24 15:00 23:00 07:00 Intake Total 100 ml 200 ml 900 ml Output Total 500 ml Balance 100 ml 200 ml 400 ml medications Current Medications Medications Dose Ordered Sig/Uday Route Start Time Stop Time Status Last Admin Dose Admin Ondansetron HCl 4 mg Q4HP PRN IV 09/07/24 16:15 Metronidazole 100 ml @ 100 mls/hr Q8HR IV 09/07/24 22:00 09/14/24 15:05 100 MLS/HR Levofloxacin/ Dextrose 100 ml @ 100 mls/hr DAILY IV 09/09/24 10:00 09/14/24 09:18 100 MLS/HR Diagnostic Test (Pha) 1 strip Q6HR 09/09/24 00:00 09/14/24 11:24 1 STRIP Insulin Human Regular FOLLOW SLIDING SCALE Q6HR SC 09/09/24 00:00 09/14/24 12:24 2 UNITS Dextrose 50 ml UD IV 09/08/24 22:00 Amino Acids 0 ml @ 0 mls/hr PER PHARMACY IV 09/09/24 19:00 Hydromorphone HCl 0.25 mg Q4HPRN PRN IV 09/10/24 07:30 09/14/24 12:23 0.25 MG Lorazepam 0.25 mg Q6HP PRN IV 09/10/24 07:30 09/10/24 11:08 0.25 MG Amino Acids 0 ml @ 0 mls/hr PER PHARMACY IV 09/10/24 12:45 UNV Sodium Chloride 10 ml QSHIFT@10,22 IV 09/11/24 22:00 09/14/24 09:19 10 ML Fat Emulsion Intravenous 150 ml/Sodium Phosphate 50 meq/ Potassium Chloride 80 meq/ Potassium Acetate 10 meq/Calcium Gluconate 4.65 meq/Magnesium Sulfate 12 meq/ Multivitamins 10 ml/Chromium/ Copper/Manganese/ Zinc 1 ml/Amino Acids/Dextrose 1,531.5 ml @ 64 mls/hr [id number] IV 09/13/24 22:00 09/14/24 21:59 09/13/24 22:03 64 MLS/HR Fat Emulsion Intravenous 150 ml/Sodium Phosphate 50 meq/ Potassium Chloride 60 meq/ Calcium Gluconate 4.65 meq/ Magnesium Sulfate 12 meq/ Multivitamins 10 ml/Chromium/ Copper/Manganese/ Zinc 1 ml/Amino Acids/Dextrose 1,566.5 ml @ 65 mls/hr Q24H6M IV 09/14/24 22:00 09/15/24 21:59 Acetaminophen/ Hydrocodone Bitart 1 tab Q4HPRN PRN PO 09/14/24 15:30 laboratory and microbiology Laboratory Tests 09/14/24 05:56 Test 09/14/24 05:56 Range/Units Serum Glucose 150 H 74-106 mg/dL Problem List/Assessment/Plan Problem List/Assessment/Plan AFEBRILE VSS ABD SOFT BM +FLATUS + WOUND DRESSING IN PLACE CONTINUE CLOSE OBSERVATION ADVANCE DIET ARABELLA DC WOUND VAC AM FAMILY AT BEDSIDE Plan discussed with: Patient My Orders My Orders Orders - ASHER EDWARDS MD Procedure Category Date Status Time Clear Liq Diet DIET 09/14/24 Transmitted Breakfast Dietary Evaluation Review Comments: 1) Advance PN to meet at least 75% estimated needs 2) advance to regular diet as medically feasible 3) Continue current plan of care Expected Outcomes/Goals: Pt will meet >75% estimated needs Fu 2-3 days ASHER EDWARDS MD Sep 14, 2024 15:29
[2024-09-14] MEDS: TPN PER PHARMACY IV NR (21:18)
--- NOTE | 2024-09-14 23:39 | DVHPN2 ---
Progress Note - Dictate Date Seen: Sep 14, 2024 Medical Necessity Reason Pt with a Central, PICC or Fol: No Subjective Postop day 5. S/P laparotomy with large tumor removal Patient has moved his bowels positive flatus Mild postop abdominal pain Tolerating diet vital signs Vital Sign Date Time Temp Pulse Resp B/P (MAP) Pulse Ox O2 Delivery O2 Flow Rate FiO2 09/14/24 21:51 95 17 128/72 09/14/24 21:00 98.7 95 98.7 09/14/24 20:00 Room Air* 0 21 Total Intake and Output 09/13/24 09/13/24 09/14/24 15:00 23:00 07:00 Intake Total 100 ml 200 ml 900 ml Output Total 500 ml Balance 100 ml 200 ml 400 ml medications Current Medications Medications Dose Ordered Sig/Uday Route Start Time Stop Time Status Last Admin Dose Admin Ondansetron HCl 4 mg Q4HP PRN IV 09/07/24 16:15 Metronidazole 100 ml @ 100 mls/hr Q8HR IV 09/07/24 22:00 09/14/24 21:23 100 MLS/HR Levofloxacin/ Dextrose 100 ml @ 100 mls/hr DAILY IV 09/09/24 10:00 09/14/24 09:18 100 MLS/HR Diagnostic Test (Pha) 1 strip Q6HR 09/09/24 00:00 09/14/24 17:11 1 STRIP Insulin Human Regular FOLLOW SLIDING SCALE Q6HR SC 09/09/24 00:00 09/14/24 17:10 2 UNITS Dextrose 50 ml UD IV 09/08/24 22:00 Amino Acids 0 ml @ 0 mls/hr PER PHARMACY IV 09/09/24 19:00 Hydromorphone HCl 0.25 mg Q4HPRN PRN IV 09/10/24 07:30 09/14/24 21:21 0.25 MG Lorazepam 0.25 mg Q6HP PRN IV 09/10/24 07:30 09/10/24 11:08 0.25 MG Amino Acids 0 ml @ 0 mls/hr PER PHARMACY IV 09/10/24 12:45 UNV Sodium Chloride 10 ml QSHIFT@10,22 IV 09/11/24 22:00 09/14/24 21:32 10 ML Fat Emulsion Intravenous 150 ml/Sodium Phosphate 50 meq/ Potassium Chloride 60 meq/ Calcium Gluconate 4.65 meq/ Magnesium Sulfate 12 meq/ Multivitamins 10 ml/Chromium/ Copper/Manganese/ Zinc 1 ml/Amino Acids/Dextrose 1,566.5 ml @ 65 mls/hr Q24H6M IV 09/14/24 22:00 09/15/24 21:59 09/14/24 21:18 65 MLS/HR Acetaminophen/ Hydrocodone Bitart 1 tab Q4HPRN PRN PO 09/14/24 15:30 objective General Appearance: Alert, Oriented X3, Cooperative HEENT: Atraumatic, PERRLA Lungs: Clear to auscultation, Normal air movement Cardiovascular: Normal S1, Normal S2 Abdomen: Normal bowel sounds, dressing dry, binder in place Musculoskeletal: Normal sensory function, Normal motor function Skin: Dry, Intact Psych/Mental Status: Mental status NL, Mood NL laboratory and microbiology Laboratory Tests 09/14/24 05:56 Test 09/14/24 05:56 Range/Units Serum Glucose 150 H 74-106 mg/dL Problems(with codes): (1) Abnormal finding on GI tract imaging (2) Cecum mass (3) Abdominal pain Prognosis Plan Patient tolerating full liquid diet Physical therapy and ambulate patient Await final pathology results IV fluids, IV antibiotics, IV PPI Dietary Evaluation Review Comments: 1) Advance PN to meet at least 75% estimated needs 2) advance to regular diet as medically feasible 3) Continue current plan of care Expected Outcomes/Goals: Pt will meet >75% estimated needs Fu 2-3 days Plan discussed with: Patient RUSS EDWARDS MD Sep 14, 2024 23:39
[2024-09-15] VITALS (7 sets, daily range): BP systolic 110–127; BP diastolic 59–81; PULSE 80–92; RESP 16–20; TEMP 97.8–98.6; O2SAT 94–98
[2024-09-15 07:44] LABS: Alanine Aminotransferase 12 U/L (7-40); Alkaline Phosphatase 64 U/L (46-116); Carbon Dioxide 25 mmol/L (20-31); Chloride 101 mmol/L (98-107)
[2024-09-15 07:45] LABS: Anion Gap 7 (5-15); Aspartate Aminotransferase 15 U/L (13-40); BUN/Creatinine Ratio 24.5 (10.0-20.0); Blood Urea Nitrogen 13 mg/dL (9-23); Potassium 3.8 mmol/L (3.5-5.1)
[2024-09-15 07:46] LABS: Albumin 3.2 g/dL (3.2-4.8); Bilirubin, Total 0.4 mg/dL (0.2-1.0); Calcium 8.2 mg/dL (8.7-10.4); Glucose 138 mg/dL (74-106); Sodium 133 mmol/L (136-145); Total Protein 5.7 g/dL (5.7-8.2)
--- NOTE | 2024-09-15 10:41 | DVHPN2 ---
Subjective In his abdominal pain. Now reporting flatus and positive bowel movement. Reviewed: Care Plan, H&P, Labs, Medications Changes from previous H/P or p: No Changes General: Per HPI Eyes: No Pain, No Vision change, No Conjunctivae inflammation, No Eyelid inflammation, No Other, No Redness ENT: No Ear pain, No Ear discharge, No Nose pain, No Nose discharge, No Nose congestion, No Mouth pain, No Mouth swelling, No Throat pain, No Throat swelling, No Other Cardiovascular: No Chest Pain, No Palpitations, No Orthopnea, No Paroxysmal Noc. Dyspnea, No Edema, No Lt Headedness, No Other Respiratory: No Cough, No Dry, No Shortness of breath, No SOB with excertion, No Wheezing, No Hemoptysis, No Pleuritic Pain, No Sputum, No Other Gastrointestinal: No Nausea, No Vomiting; Abdominal Pain; No Diarrhea; C onstipation; No Melena, No Hematochezia, No Other Genitourinary: No Dysuria, No Frequency, No Incontinence, No Hematuria, No Retention, No Other Musculoskeletal: No other, No neck pain, No shoulder pain, No arm pain, No back pain, No hand pain, No leg pain, No foot pain Skin: No Rash, No Lesions, No Jaundice, No Bruising, No Other Objective Vitals Vital Signs Date Time Temp Pulse Resp B/P (MAP) Pulse Ox O2 Delivery O2 Flow Rate FiO2 09/15/24 09:00 98.4 88 20 127/60 (82) 94 98.4 09/15/24 08:00 Room Air* 0 21 Intake/Output Intake and Output 09/15/24 07:00 Intake Total 3035 ml Output Total 500 ml Balance 2535 ml Intake Oral 1080 ml IV Total 1955 ml Output Urine Total 500 ml # Voids 3 # Bowel Movements 2 General Appearance: Alert, Oriented X3, Cooperative HEENT: Atraumatic, PERRLA Lungs: Clear to auscultation, Normal air movement Cardiovascular: Normal S1, Normal S2 Abdomen: Normal bowel sounds, Soft, No tenderness, No hepatospenomegaly Musculoskeletal: Normal sensory function, Normal motor function Skin: Dry, Intact Psych/Mental Status: Mental status NL, Mood NL Medications Current Medications Medications Dose Ordered Sig/Uday Route Start Time Stop Time Status Last Admin Dose Admin Ondansetron HCl 4 mg Q4HP PRN IV 09/07/24 16:15 Metronidazole 100 ml @ 100 mls/hr Q8HR IV 09/07/24 22:00 09/15/24 05:25 100 MLS/HR Levofloxacin/ Dextrose 100 ml @ 100 mls/hr DAILY IV 09/09/24 10:00 09/15/24 08:40 100 MLS/HR Diagnostic Test (Pha) 1 strip Q6HR 09/09/24 00:00 09/15/24 05:25 1 STRIP Insulin Human Regular FOLLOW SLIDING SCALE Q6HR SC 09/09/24 00:00 09/15/24 00:10 2 UNITS Dextrose 50 ml UD IV 09/08/24 22:00 Amino Acids 0 ml @ 0 mls/hr PER PHARMACY IV 09/09/24 19:00 Hydromorphone HCl 0.25 mg Q4HPRN PRN IV 09/10/24 07:30 09/15/24 06:09 0.25 MG Lorazepam 0.25 mg Q6HP PRN IV 09/10/24 07:30 09/10/24 11:08 0.25 MG Amino Acids 0 ml @ 0 mls/hr PER PHARMACY IV 09/10/24 12:45 UNV Sodium Chloride 10 ml QSHIFT@10,22 IV 09/11/24 22:00 09/15/24 08:40 10 ML Fat Emulsion Intravenous 150 ml/Sodium Phosphate 50 meq/ Potassium Chloride 60 meq/ Calcium Gluconate 4.65 meq/ Magnesium Sulfate 12 meq/ Multivitamins 10 ml/Chromium/ Copper/Manganese/ Zinc 1 ml/Amino Acids/Dextrose 1,566.5 ml @ 65 mls/hr Q24H6M IV 09/14/24 22:00 09/15/24 21:59 09/14/24 21:18 65 MLS/HR Acetaminophen/ Hydrocodone Bitart 1 tab Q4HPRN PRN PO 09/14/24 15:30 Laboratory Results Laboratory Tests 09/14/24 05:56 09/15/24 06:52 Chemistry Test 09/15/24 06:52 Albumin 3.2 g/dL (3.2-4.8) Calcium Level 8.2 mg/dL (8.7-10.4) L Magnesium Level 2.0 mg/dL (1.6-2.6) Phosphorus Level 3.0 mg/dL (2.4-5.1) Total Protein 5.7 g/dL (5.7-8.2) LFT Test 09/15/24 06:52 Alanine Aminotransferase (ALT) 12 U/L (7-40) Alkaline Phosphatase 64 U/L (46-116) Aspartate Amino Transferase (AST) 15 U/L (13-40) Total Bilirubin 0.4 mg/dL (0.2-1.0) Urinalysis Test 09/07/24 11:27 Urine Color Light-yellow (Yellow) Urine Clarity Clear (Clear) Urine pH 6.0 (5.0-9.0) Urine Specific [place] 1.014 (1.001-1.035) Urine Protein Negative (Negative) Urine Ketones Negative (Negative) Urine Blood Negative /uL (Negative) Urine Nitrite Negative (Negative) Urine Bilirubin Negative (Negative) Urine Urobilinogen Normal mg/dL (Negative) Urine Leukocyte Esterase Negative /uL (Negative) Urine RBC <1 /hpf (0 - 3) Urine Microscopic WBC 1 /HPF (0-3) Urine Squamous Epithelial Cells Few /hpf (<5) Urine Bacteria None seen /hpf (None Seen) Urine Glucose Normal mg/dL (Normal) Labs and/or images reviewed: Labs reviewed by me, Image(s) reviewed by me Assessment/Plan Assessment/Plan Impression: -large colonic mass with obstruction -sepsis -recent history of colitis Acute hypoxic respiratory failure Plan: Events: Patient now positive bowel movement. Tolerating full liquid diet. Reported by primary nurse that patient has some unsteadiness with ambulation to commode. -weaned off TPN -PT consultation -DC planning once pathology report has been obtained -wound care nurse consultation for him we will wound VAC -continue PPI -surgical consultation: Discussed case with Dr. Tuyet Stubbs yesterday. -pain management -continue antibiotics with Flagyl and Levaquin Total time spent with patient discussing and formulating plan of care: 35 minutes. This medical document was created using an electronic medical record system with [employer] system. Although this document has been carefully reviewed, there may still be some phonetic and typographical errors. These areas are purely typographical due to imperfections of the software programs, and do not reflect any compromise in the patient's medical care. Plan discussed with: Patient, Other (RN) My Orders Orders - CARMEN VILLALPANDO BUSINESS MANAGER Procedure Category Date Status Time Hydrocodone-Acet PHA 09/14/24 In Process 5/325mg Tab ([place] 15:30 Pt Request For Service PT 09/15/24 Logged 10:34 * Wound Consult CONS 09/15/24 Transmitted Mechanical Soft Diet DIET 09/15/24 Transmitted Lunch Glucose Blood PHA 09/15/24 Verified (Accu-Chek Comfort 11:30 Mild Sliding Scale PHA 09/15/24 Verified 11:30 Dextrose 50% Syringe PHA 09/15/24 Verified 10:45 Date of Service: Sep 15, 2024 Billing Provider: CARMEN VILLALPANDO BUSINESS MANAGER Common Visit Codes: [id number] INP/OBS CARE(HIGH) CARMEN VILLALPANDO NP Sep 15, 2024 10:41
[2024-09-15] MEDS ORDERED: DEXTROSE (50%) 50ML SYRG IV PRN (10:45)
[2024-09-15] MEDS: InsuLIN REG 1unit/0.01ml Soln (100units/ml) SC SCH (11:30)
[2024-09-15] MEDS: ACCU-CHEK COMFORT CURVE STRIP VI SCH (11:30)
--- NOTE | 2024-09-15 22:35 | DVHPN2 ---
Progress Note - Dictate Date Seen: Sep 15, 2024 Medical Necessity Reason Pt with a Central, PICC or Fol: No Subjective Postop day 6. 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 Final immunos are still pending; possible retroperitoneal mass encasing the cecum Final pathology results will be available tomorrow vital signs Vital Sign Date Time Temp Pulse Resp B/P (MAP) Pulse Ox O2 Delivery O2 Flow Rate FiO2 09/15/24 21:00 98.1 89 16 123/81 (95) 95 98.1 09/15/24 20:00 Room Air* 0 21 Total Intake and Output 09/14/24 09/14/24 09/15/24 15:00 23:00 07:00 Intake Total 100 ml 2615 ml 320 ml Output Total 500 ml Balance 100 ml 2615 ml -180 ml medications Current Medications Medications Dose Ordered Sig/Uday Route Start Time Stop Time Status Last Admin Dose Admin Ondansetron HCl 4 mg Q4HP PRN IV 09/07/24 16:15 Metronidazole 100 ml @ 100 mls/hr Q8HR IV 09/07/24 22:00 09/15/24 21:52 100 MLS/HR Levofloxacin/ Dextrose 100 ml @ 100 mls/hr DAILY IV 09/09/24 10:00 09/15/24 08:40 100 MLS/HR Hydromorphone HCl 0.25 mg Q4HPRN PRN IV 09/10/24 07:30 09/15/24 20:07 0.25 MG Lorazepam 0.25 mg Q6HP PRN IV 09/10/24 07:30 09/10/24 11:08 0.25 MG Amino Acids 0 ml @ 0 mls/hr PER PHARMACY IV 09/10/24 12:45 UNV Sodium Chloride 10 ml QSHIFT@10,22 IV 09/11/24 22:00 09/15/24 21:58 10 ML Acetaminophen/ Hydrocodone Bitart 1 tab Q4HPRN PRN PO 09/14/24 15:30 Diagnostic Test (Pha) 1 strip ACHS 09/15/24 11:30 09/15/24 21:58 1 STRIP Insulin Human Regular ACHS SC 09/15/24 11:30 Dextrose 50 ml UD PRN IV 09/15/24 10:45 objective General Appearance: Alert, Oriented X3, Cooperative HEENT: Atraumatic, PERRLA Lungs: Clear to auscultation, Normal air movement Cardiovascular: Normal S1, Normal S2 Abdomen: Normal bowel sounds, dressing dry, binder in place Musculoskeletal: Normal sensory function, Normal motor function Skin: Dry, Intact Psych/Mental Status: Mental status NL, Mood NL laboratory and microbiology Laboratory Tests 09/15/24 06:52 09/14/24 05:56 Test 09/15/24 06:52 Range/Units Serum Glucose 138 H 74-106 mg/dL Problems(with codes): (1) Abnormal finding on GI tract imaging (2) Cecum mass (3) Abdominal pain Prognosis Plan Discharge planning as per hospitalist Patient will need outpatient referral to Oncology Pending final immunostains patient will likely need chemotherapy Consider Port-A-Cath placement Dietary Evaluation Review Comments: 1) Advance PN to meet at least 75% estimated needs 2) advance to regular diet as medically feasible 3) Continue current plan of care Expected Outcomes/Goals: Pt will meet >75% estimated needs Fu 2-3 days Plan discussed with: Other (Dr Melonie Clark) RUSS EDWARDS MD Sep 15, 2024 22:35
--- NOTE | 2024-09-15 23:02 | DVHPN2 ---
Progress Note Date Seen: Sep 15, 2024 Medical Necessity Reason Pt with a Central, PICC or Fol: No Objective vital signs Vital Sign Date Time Temp Pulse Resp B/P (MAP) Pulse Ox O2 Delivery O2 Flow Rate FiO2 09/15/24 21:00 98.1 89 16 123/81 (95) 95 98.1 09/15/24 20:00 Room Air* 0 21 Total Intake and Output 09/14/24 09/14/24 09/15/24 15:00 23:00 07:00 Intake Total 100 ml 2615 ml 320 ml Output Total 500 ml Balance 100 ml 2615 ml -180 ml medications Current Medications Medications Dose Ordered Sig/Uday Route Start Time Stop Time Status Last Admin Dose Admin Ondansetron HCl 4 mg Q4HP PRN IV 09/07/24 16:15 Metronidazole 100 ml @ 100 mls/hr Q8HR IV 09/07/24 22:00 09/15/24 21:52 100 MLS/HR Levofloxacin/ Dextrose 100 ml @ 100 mls/hr DAILY IV 09/09/24 10:00 09/15/24 08:40 100 MLS/HR Hydromorphone HCl 0.25 mg Q4HPRN PRN IV 09/10/24 07:30 09/15/24 20:07 0.25 MG Lorazepam 0.25 mg Q6HP PRN IV 09/10/24 07:30 09/10/24 11:08 0.25 MG Amino Acids 0 ml @ 0 mls/hr PER PHARMACY IV 09/10/24 12:45 UNV Sodium Chloride 10 ml QSHIFT@10,22 IV 09/11/24 22:00 09/15/24 21:58 10 ML Acetaminophen/ Hydrocodone Bitart 1 tab Q4HPRN PRN PO 09/14/24 15:30 Diagnostic Test (Pha) 1 strip ACHS 09/15/24 11:30 09/15/24 21:58 1 STRIP Insulin Human Regular ACHS SC 09/15/24 11:30 Dextrose 50 ml UD PRN IV 09/15/24 10:45 laboratory and microbiology Laboratory Tests 09/15/24 06:52 09/14/24 05:56 Test 09/15/24 06:52 Range/Units Serum Glucose 138 H 74-106 mg/dL Problem List/Assessment/Plan Problem List/Assessment/Plan AFEBRILE VSS ABD SOFT BM +FLATUS + WOUND DRESSING IN PLACE CONTINUE CLOSE OBSERVATION ADVANCE DIET ARABELLA DC WOUND VAC AM FAMILY AT BEDSIDE PATHOLOGY OF R COLON AND ADJACENT TUMOR LYMPHOMA CONSIDER ONCOLOGY EVAL Plan discussed with: Patient My Orders My Orders Orders - ASHER EDWARDS MD Procedure Category Date Status Time Consistent DIET 09/15/24 Transmitted Carb(Ccho)Diabetes Dinner Dietary Evaluation Review Comments: 1) Advance PN to meet at least 75% estimated needs 2) advance to regular diet as medically feasible 3) Continue current plan of care Expected Outcomes/Goals: Pt will meet >75% estimated needs Fu 2-3 days ASHER EDWARDS MD Sep 15, 2024 23:02
[2024-09-16] VITALS (7 sets, daily range): BP systolic 100–139; BP diastolic 51–73; PULSE 77–90; RESP 16–20; TEMP 97.9–98.7; O2SAT 91–95
--- NOTE | 2024-09-16 17:26 | DVHPN2 ---
Subjective Patient denies any symptoms. Reviewed: Care Plan, H&P, Labs, Medications Changes from previous H/P or p: No Changes General: Per HPI Eyes: No Pain, No Vision change, No Conjunctivae inflammation, No Eyelid inflammation, No Other, No Redness ENT: No Ear pain, No Ear discharge, No Nose pain, No Nose discharge, No Nose congestion, No Mouth pain, No Mouth swelling, No Throat pain, No Throat swelling, No Other Cardiovascular: No Chest Pain, No Palpitations, No Orthopnea, No Paroxysmal Noc. Dyspnea, No Edema, No Lt Headedness, No Other Respiratory: No Cough, No Dry, No Shortness of breath, No SOB with excertion, No Wheezing, No Hemoptysis, No Pleuritic Pain, No Sputum, No Other Gastrointestinal: No Nausea, No Vomiting; Abdominal Pain; No Diarrhea; C onstipation; No Melena, No Hematochezia, No Other Genitourinary: No Dysuria, No Frequency, No Incontinence, No Hematuria, No Retention, No Other Musculoskeletal: No other, No neck pain, No shoulder pain, No arm pain, No back pain, No hand pain, No leg pain, No foot pain Skin: No Rash, No Lesions, No Jaundice, No Bruising, No Other Objective Vitals Vital Signs Date Time Temp Pulse Resp B/P (MAP) Pulse Ox O2 Delivery O2 Flow Rate FiO2 09/16/24 16:33 98.0 80 20 109/62 (78) 95 98.0 09/16/24 08:00 Room Air* 0 21 Intake/Output Intake and Output 09/16/24 07:00 Intake Total 3010 ml Output Total 500 ml Balance 2510 ml Intake Oral 1700 ml IV Total 1310 ml Output Urine Total 500 ml # Voids 3 # Bowel Movements 2 General Appearance: Alert, Oriented X3, Cooperative HEENT: Atraumatic, PERRLA Lungs: Clear to auscultation, Normal air movement Cardiovascular: Normal S1, Normal S2 Abdomen: Normal bowel sounds, Soft, No tenderness, No hepatospenomegaly Musculoskeletal: Normal sensory function, Normal motor function Skin: Dry, Intact Psych/Mental Status: Mental status NL, Mood NL Medications Current Medications Medications Dose Ordered Sig/Uday Route Start Time Stop Time Status Last Admin Dose Admin Ondansetron HCl 4 mg Q4HP PRN IV 09/07/24 16:15 Metronidazole 100 ml @ 100 mls/hr Q8HR IV 09/07/24 22:00 09/16/24 13:34 100 MLS/HR Levofloxacin/ Dextrose 100 ml @ 100 mls/hr DAILY IV 09/09/24 10:00 09/16/24 08:41 100 MLS/HR Hydromorphone HCl 0.25 mg Q4HPRN PRN IV 09/10/24 07:30 09/16/24 13:35 0.25 MG Lorazepam 0.25 mg Q6HP PRN IV 09/10/24 07:30 09/10/24 11:08 0.25 MG Amino Acids 0 ml @ 0 mls/hr PER PHARMACY IV 09/10/24 12:45 UNV Sodium Chloride 10 ml QSHIFT@10,22 IV 09/11/24 22:00 09/16/24 08:41 10 ML Acetaminophen/ Hydrocodone Bitart 1 tab Q4HPRN PRN PO 09/14/24 15:30 Laboratory Results Laboratory Tests 09/14/24 05:56 09/15/24 06:52 Urinalysis Test 09/07/24 11:27 Urine Color Light-yellow (Yellow) Urine Clarity Clear (Clear) Urine pH 6.0 (5.0-9.0) Urine Specific [place] 1.014 (1.001-1.035) Urine Protein Negative (Negative) Urine Ketones Negative (Negative) Urine Blood Negative /uL (Negative) Urine Nitrite Negative (Negative) Urine Bilirubin Negative (Negative) Urine Urobilinogen Normal mg/dL (Negative) Urine Leukocyte Esterase Negative /uL (Negative) Urine RBC <1 /hpf (0 - 3) Urine Microscopic WBC 1 /HPF (0-3) Urine Squamous Epithelial Cells Few /hpf (<5) Urine Bacteria None seen /hpf (None Seen) Urine Glucose Normal mg/dL (Normal) Labs and/or images reviewed: Labs reviewed by me, Image(s) reviewed by me Assessment/Plan Assessment/Plan Impression: -large colonic mass with obstruction -sepsis -recent history of colitis Acute hypoxic respiratory failure Plan: Events: 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 Final pathology has not been released. This was discussed with the patient. I, myself also spoke with oncologist, Dr. Danielle, who states the patient can be followed up as an outpatient. Patient will have PICC line removed. Continue with oral intake, pain management, physical therapy. Reassess for discharge in a.m. -PT consultation -DC planning once pathology report has been obtained -wound care nurse consultation for him we will wound VAC -continue PPI -surgical consultation: Recommendations reviewed -pain management -continue antibiotics with Flagyl and Levaquin Total time spent with patient discussing and formulating plan of care: 35 minutes. This medical document was created using an electronic medical record system with [employer]ation system. Although this document has been carefully reviewed, there may still be some phonetic and typographical errors. These areas are purely typographical due to imperfections of the software programs, and do not reflect any compromise in the patient's medical care. Plan discussed with: Patient, Other (RN) My Orders Orders - CARMEN VILLALPANDO NP Procedure Category Date Status Time Communication Order ORDERS 09/16/24 Transmitted 16:42 Date of Service: Sep 16, 2024 Billing Provider: CARMEN VILLALPANDO NP Common Visit Codes: [id number] INP/OBS CARE(HIGH) CARMEN VILLALPANDO NP Sep 16, 2024 17:26
--- NOTE | 2024-09-16 21:12 | DVHPN2 ---
Progress Note - Dictate Date Seen: Sep 16, 2024 Medical Necessity Reason Pt with a Central, PICC or Fol: No Subjective Postop day 7. S/P laparotomy with large tumor removal No new complaints,, tolerating diet I was notified by the pathologist that the preliminary diagnosis of the large tumor that was removed was a lymphoma Final immunos are still pending; possible retroperitoneal mass encasing the cecum Final pathology results will be available tomorrow vital signs Vital Sign Date Time Temp Pulse Resp B/P (MAP) Pulse Ox O2 Delivery O2 Flow Rate FiO2 09/16/24 18:42 95 18 106/65 09/16/24 16:33 98.0 95 98.0 09/16/24 08:00 Room Air* 0 21 Total Intake and Output 09/15/24 09/15/24 09/16/24 15:00 23:00 07:00 Intake Total 1110 ml 1150 ml 750 ml Output Total 500 ml Balance 1110 ml 1150 ml 250 ml medications Current Medications Medications Dose Ordered Sig/Uday Route Start Time Stop Time Status Last Admin Dose Admin Ondansetron HCl 4 mg Q4HP PRN IV 09/07/24 16:15 Metronidazole 100 ml @ 100 mls/hr Q8HR IV 09/07/24 22:00 09/16/24 13:34 100 MLS/HR Levofloxacin/ Dextrose 100 ml @ 100 mls/hr DAILY IV 09/09/24 10:00 09/16/24 08:41 100 MLS/HR Hydromorphone HCl 0.25 mg Q4HPRN PRN IV 09/10/24 07:30 09/16/24 18:12 0.25 MG Lorazepam 0.25 mg Q6HP PRN IV 09/10/24 07:30 09/10/24 11:08 0.25 MG Amino Acids 0 ml @ 0 mls/hr PER PHARMACY IV 09/10/24 12:45 UNV Sodium Chloride 10 ml QSHIFT@10,22 IV 09/11/24 22:00 09/16/24 08:41 10 ML Acetaminophen/ Hydrocodone Bitart 1 tab Q4HPRN PRN PO 09/14/24 15:30 objective General Appearance: Alert, Oriented X3, Cooperative HEENT: Atraumatic, PERRLA Lungs: Clear to auscultation, Normal air movement Cardiovascular: Normal S1, Normal S2 Abdomen: Normal bowel sounds, dressing dry, binder in place Musculoskeletal: Normal sensory function, Normal motor function Skin: Dry, Intact Psych/Mental Status: Mental status NL, Mood NL laboratory and microbiology Laboratory Tests 09/15/24 06:52 09/14/24 05:56 Test 09/15/24 06:52 Range/Units Serum Glucose 138 H 74-106 mg/dL Problems(with codes): (1) Abnormal finding on GI tract imaging (2) Cecum mass (3) Abdominal pain Prognosis Plan Discharge planning as per hospitalist Encourage PT and ambulation and Hep-Lock IV Patient will need outpatient referral to Oncology Pending final immunostains patient will likely need chemotherapy Consider Port-A-Cath placement Dietary Evaluation Review Comments: 1) Advance PN to meet at least 75% estimated needs 2) advance to regular diet as medically feasible 3) Continue current plan of care Expected Outcomes/Goals: Pt will meet >75% estimated needs Fu 2-3 days Plan discussed with: Patient, Spouse RUSS EDWARDS MD Sep 16, 2024 21:12
[2024-09-16] MEDS: HYDROcodone-ACET 5/325MG TAB PO PRN (21:26)
[2024-09-17] VITALS (8 sets, daily range): BP systolic 109–139; BP diastolic 52–73; PULSE 72–100; RESP 16–19; TEMP 97.9–98.2; O2SAT 90–95
--- NOTE | 2024-09-17 11:59 | DVHPN2 ---
Progress Note Date Seen: Sep 17, 2024 Medical Necessity Reason Pt with a Central, PICC or Fol: No Objective vital signs Vital Sign Date Time Temp Pulse Resp B/P (MAP) Pulse Ox O2 Delivery O2 Flow Rate FiO2 09/17/24 08:51 98.1 82 19 113/60 (77) 92 98.1 09/17/24 08:00 Room Air* 0 21 Total Intake and Output 09/16/24 09/16/24 09/17/24 14:59 22:59 06:59 Intake Total 200 ml 1350 ml 1050 ml Output Total 800 ml 850 ml Balance 200 ml 550 ml 200 ml medications Current Medications Medications Dose Ordered Sig/Uday Route Start Time Stop Time Status Last Admin Dose Admin Ondansetron HCl 4 mg Q4HP PRN IV 09/07/24 16:15 Metronidazole 100 ml @ 100 mls/hr Q8HR IV 09/07/24 22:00 09/17/24 05:26 100 MLS/HR Levofloxacin/ Dextrose 100 ml @ 100 mls/hr DAILY IV 09/09/24 10:00 09/17/24 09:42 100 MLS/HR Hydromorphone HCl 0.25 mg Q4HPRN PRN IV 09/10/24 07:30 09/16/24 18:12 0.25 MG Lorazepam 0.25 mg Q6HP PRN IV 09/10/24 07:30 09/10/24 11:08 0.25 MG Amino Acids 0 ml @ 0 mls/hr PER PHARMACY IV 09/10/24 12:45 UNV Sodium Chloride 10 ml QSHIFT@10,22 IV 09/11/24 22:00 09/17/24 09:42 10 ML Acetaminophen/ Hydrocodone Bitart 1 tab Q4HPRN PRN PO 09/14/24 15:30 09/16/24 21:26 1 TAB laboratory and microbiology Laboratory Tests 09/15/24 06:52 09/14/24 05:56 Test 09/15/24 06:52 Range/Units Serum Glucose 138 H 74-106 mg/dL Problem List/Assessment/Plan Problem List/Assessment/Plan AFEBRILE VSS ABD SOFT BM +FLATUS + WOUND DRESSING IN PLACE CONTINUE CLOSE OBSERVATION ADVANCE DIET ARABELLA DC WOUND VAC AM FAMILY AT BEDSIDE PATHOLOGY OF R COLON AND ADJACENT TUMOR LYMPHOMA CONSIDER ONCOLOGY EVAL OUTPT CLEARED FOR DISCHARGE INSTRUCTIONS RE DIET ACTIVITY F/UP GIVEN Plan discussed with: Patient Dietary Evaluation Review Comments: 1) Advance PN to meet at least 75% estimated needs 2) advance to regular diet as medically feasible 3) Continue current plan of care Expected Outcomes/Goals: Pt will meet >75% estimated needs Fu 2-3 days ASHER EDWARDS MD Sep 17, 2024 11:59
[2024-09-17] MEDS ORDERED: HYDR-4902 PO (15:46)
--- NOTE | 2024-09-17 15:48 | DVHPN2 ---
Subjective Patient denies any symptoms. Reviewed: Care Plan, H&P, Labs, Medications Changes from previous H/P or p: No Changes General: Per HPI Eyes: No Pain, No Vision change, No Conjunctivae inflammation, No Eyelid inflammation, No Other, No Redness ENT: No Ear pain, No Ear discharge, No Nose pain, No Nose discharge, No Nose congestion, No Mouth pain, No Mouth swelling, No Throat pain, No Throat swelling, No Other Cardiovascular: No Chest Pain, No Palpitations, No Orthopnea, No Paroxysmal Noc. Dyspnea, No Edema, No Lt Headedness, No Other Respiratory: No Cough, No Dry, No Shortness of breath, No SOB with excertion, No Wheezing, No Hemoptysis, No Pleuritic Pain, No Sputum, No Other Gastrointestinal: No Nausea, No Vomiting; Abdominal Pain; No Diarrhea; C onstipation; No Melena, No Hematochezia, No Other Genitourinary: No Dysuria, No Frequency, No Incontinence, No Hematuria, No Retention, No Other Musculoskeletal: No other, No neck pain, No shoulder pain, No arm pain, No back pain, No hand pain, No leg pain, No foot pain Skin: No Rash, No Lesions, No Jaundice, No Bruising, No Other Objective Vitals Vital Signs Date Time Temp Pulse Resp B/P (MAP) Pulse Ox O2 Delivery O2 Flow Rate FiO2 09/17/24 13:09 97.9 86 17 114/58 (76) 93 97.9 09/17/24 08:00 Room Air* 0 21 Intake/Output Intake and Output 09/17/24 06:59 Intake Total 2600 ml Output Total 1650 ml Balance 950 ml Intake Oral 2200 ml IV Total 400 ml Output Urine Total 1650 ml # Bowel Movements 2 General Appearance: Alert, Oriented X3, Cooperative HEENT: Atraumatic, PERRLA Lungs: Clear to auscultation, Normal air movement Cardiovascular: Normal S1, Normal S2 Abdomen: Normal bowel sounds, Soft, No tenderness, No hepatospenomegaly Musculoskeletal: Normal sensory function, Normal motor function Skin: Dry, Intact Psych/Mental Status: Mental status NL, Mood NL Medications Current Medications Medications Dose Ordered Sig/Uday Route Start Time Stop Time Status Last Admin Dose Admin Ondansetron HCl 4 mg Q4HP PRN IV 09/07/24 16:15 Metronidazole 100 ml @ 100 mls/hr Q8HR IV 09/07/24 22:00 09/17/24 13:59 100 MLS/HR Levofloxacin/ Dextrose 100 ml @ 100 mls/hr DAILY IV 09/09/24 10:00 09/17/24 09:42 100 MLS/HR Hydromorphone HCl 0.25 mg Q4HPRN PRN IV 09/10/24 07:30 09/16/24 18:12 0.25 MG Lorazepam 0.25 mg Q6HP PRN IV 09/10/24 07:30 09/10/24 11:08 0.25 MG Amino Acids 0 ml @ 0 mls/hr PER PHARMACY IV 09/10/24 12:45 UNV Sodium Chloride 10 ml QSHIFT@10,22 IV 09/11/24 22:00 09/17/24 09:42 10 ML Acetaminophen/ Hydrocodone Bitart 1 tab Q4HPRN PRN PO 09/14/24 15:30 09/17/24 14:04 1 TAB Laboratory Results Laboratory Tests 09/14/24 05:56 09/15/24 06:52 Urinalysis Test 09/07/24 11:27 Urine Color Light-yellow (Yellow) Urine Clarity Clear (Clear) Urine pH 6.0 (5.0-9.0) Urine Specific [place] 1.014 (1.001-1.035) Urine Protein Negative (Negative) Urine Ketones Negative (Negative) Urine Blood Negative /uL (Negative) Urine Nitrite Negative (Negative) Urine Bilirubin Negative (Negative) Urine Urobilinogen Normal mg/dL (Negative) Urine Leukocyte Esterase Negative /uL (Negative) Urine RBC <1 /hpf (0 - 3) Urine Microscopic WBC 1 /HPF (0-3) Urine Squamous Epithelial Cells Few /hpf (<5) Urine Bacteria None seen /hpf (None Seen) Urine Glucose Normal mg/dL (Normal) Labs and/or images reviewed: Labs reviewed by me, Image(s) reviewed by me Assessment/Plan Assessment/Plan Impression: -large colonic mass with obstruction -sepsis -recent history of colitis Acute hypoxic respiratory failure Plan: Events: Events overnight. DME pending. Reassess for discharge in a.m.. -PT consultation -DC planning once pathology report has been obtained -continue PPI -surgical consultation: Recommendations reviewed -pain management -continue antibiotics with Flagyl and Levaquin Total time spent with patient discussing and formulating plan of care: 35 minutes. This medical document was created using an electronic medical record system with [employer] dictation system. Although this document has been carefully reviewed, there may still be some phonetic and typographical errors. These areas are purely typographical due to imperfections of the software programs, and do not reflect any compromise in the patient's medical care. Plan discussed with: Patient, Other (RN) My Orders Orders - CARMEN VILLALPANDO NP Procedure Category Date Status Time Communication Order ORDERS 09/16/24 Transmitted 16:42 * Sales Planner CONS 09/17/24 Transmitted Consult Dme: [facility]oman DME 09/17/24 Transmitted 15:44 Date of Service: Sep 17, 2024 Billing Provider: CARMEN VILLALPANDO NP Common Visit Codes: [id number] INP/OBS CARE(HIGH) CARMEN VILLALPANDO NP Sep 17, 2024 15:48
--- NOTE | 2024-09-17 16:39 | DVHPN2 ---
Progress Note - Dictate Date Seen: Sep 17, 2024 Medical Necessity Reason Pt with a Central, PICC or Fol: No Subjective Postop day 8. S/P laparotomy with large tumor removal No new complaints,, tolerating diet 2 BMs recorded I was notified by the pathologist that the preliminary diagnosis of the large tumor that was removed was a lymphoma Final immunos are still pending; possible retroperitoneal mass encasing the cecum vital signs Vital Sign Date Time Temp Pulse Resp B/P (MAP) Pulse Ox O2 Delivery O2 Flow Rate FiO2 09/17/24 13:09 97.9 86 17 114/58 (76) 93 97.9 09/17/24 08:00 Room Air* 0 21 Total Intake and Output 09/16/24 09/16/24 09/17/24 15:00 23:00 07:00 Intake Total 200 ml 1350 ml 1050 ml Output Total 800 ml 850 ml Balance 200 ml 550 ml 200 ml medications Current Medications Medications Dose Ordered Sig/Uday Route Start Time Stop Time Status Last Admin Dose Admin Ondansetron HCl 4 mg Q4HP PRN IV 09/07/24 16:15 Metronidazole 100 ml @ 100 mls/hr Q8HR IV 09/07/24 22:00 09/17/24 13:59 100 MLS/HR Levofloxacin/ Dextrose 100 ml @ 100 mls/hr DAILY IV 09/09/24 10:00 09/17/24 09:42 100 MLS/HR Hydromorphone HCl 0.25 mg Q4HPRN PRN IV 09/10/24 07:30 09/16/24 18:12 0.25 MG Lorazepam 0.25 mg Q6HP PRN IV 09/10/24 07:30 09/10/24 11:08 0.25 MG Amino Acids 0 ml @ 0 mls/hr PER PHARMACY IV 09/10/24 12:45 UNV Sodium Chloride 10 ml QSHIFT@10,22 IV 09/11/24 22:00 09/17/24 09:42 10 ML Acetaminophen/ Hydrocodone Bitart 1 tab Q4HPRN PRN PO 09/14/24 15:30 09/17/24 14:04 1 TAB objective General Appearance: Alert, Oriented X3, Cooperative HEENT: Atraumatic, PERRLA Lungs: Clear to auscultation, Normal air movement Cardiovascular: Normal S1, Normal S2 Abdomen: Normal bowel sounds, dressing dry, binder in place Musculoskeletal: Normal sensory function, Normal motor function Skin: Dry, Intact Psych/Mental Status: Mental status NL, Mood NL laboratory and microbiology Laboratory Tests 09/15/24 06:52 09/14/24 05:56 Test 09/15/24 06:52 Range/Units Serum Glucose 138 H 74-106 mg/dL Problems(with codes): (1) Lymphoma (2) Abnormal finding on GI tract imaging (3) Cecum mass (4) Abdominal pain (5) Urticaria (6) Intractable abdominal pain Prognosis Plan Discharge planning as per hospitalist Encourage PT and ambulation and Hep-Lock IV Patient will need outpatient referral to Oncology Pending final immunostains patient will likely need chemotherapy Consider Port-A-Cath placement Dietary Evaluation Review Comments: 1) Advance PN to meet at least 75% estimated needs 2) advance to regular diet as medically feasible 3) Continue current plan of care Expected Outcomes/Goals: Pt will meet >75% estimated needs Fu 2-3 days Plan discussed with: Patient RUSS EDWARDS MD Sep 17, 2024 16:39
[2024-09-18 01:00] VITALS: BP 108/60; PULSE 79; RESP 18; TEMP 98.3; O2SAT 94
[2024-09-18 05:00] VITALS: BP 105/58; PULSE 75; RESP 18; TEMP 97.9; O2SAT 94
[2024-09-18 08:00] VITALS: RESP 18; O2SAT 91
[2024-09-18 09:00] VITALS: BP 108/63; PULSE 58; RESP 18; TEMP 98.5; O2SAT 96
--- NOTE | 2024-09-18 11:01 | DVHDS2 ---
Discharge Summary Date of Admission Sep 07, 2024 at 16:10 Date of Discharge: Sep 18, 2024 Admitting Diagnosis Cecal mass Labs/Diagnostic Data: Laboratory Results Test 09/16/24 11:19 09/15/24 06:52 09/14/24 05:56 09/10/24 05:33 POC Glucose 127 mg/dl (70-106) Sodium Level 133 mmol/L (136-145) Potassium Level 3.8 mmol/L (3.5-5.1) Chloride Level 101 mmol/L (98-107) Carbon Dioxide Level 25 mmol/L (20-31) Anion Gap 7 (5-15) Blood Urea Nitrogen 13 mg/dL (9-23) Creatinine 0.53 mg/dL (0.700-1.30) Glomerular Filtration Rate Calc 113 mL/min (>90) BUN/Creatinine Ratio 24.5 (10.0-20.0) Serum Glucose 138 mg/dL (74-106) Calcium Level 8.2 mg/dL (8.7-10.4) Phosphorus Level 3.0 mg/dL (2.4-5.1) Magnesium Level 2.0 mg/dL (1.6-2.6) Total Bilirubin 0.4 mg/dL (0.2-1.0) Aspartate Amino Transferase (AST) 15 U/L (13-40) Alanine Aminotransferase (ALT) 12 U/L (7-40) Alkaline Phosphatase 64 U/L (46-116) Total Protein 5.7 g/dL (5.7-8.2) Albumin 3.2 g/dL (3.2-4.8) White Blood Count 11.0 10^3/uL (4.4-10.8) Red Blood Count 4.13 10^6/uL (4.5-5.90) Hemoglobin 11.7 g/dL (13.5-17.5) Hematocrit 34.1 % (41.0-53.0) Mean Corpuscular Volume 82.6 fL (80.0-100.0) Mean Corpuscular Hemoglobin 28.4 pg (28.0-32.0) Mean Corpuscular Hemoglobin Concent 34.3 g/dL (32.0-36.0) Red Cell Distribution Width 14.1 % (11.8-14.3) Platelet Count 339 10^3/uL (140-450) Mean Platelet Volume 7.7 fL (6.9-10.8) Neutrophils (%) (Auto) 74.6 % (37.0-80.0) Lymphocytes (%) (Auto) 9.6 % (10.0-50.0) Monocytes (%) (Auto) 14.1 % (0.0-12.0) Eosinophils (%) (Auto) 1.3 % (0.0-7.0) Basophils (%) (Auto) 0.4 % (0.0-2.0) Neutrophils # (Auto) 8.2 10 ^3/uL (1.6-8.6) Lymphocytes # (Auto) 1.1 10 ^3/uL (0.4-5.4) Monocytes # (Auto) 1.6 10 ^3/uL (0-1.3) Eosinophils # (Auto) 0.1 10 ^3/uL (0-0.8) Basophils # (Auto) 0 10 ^3/uL (0-0.2) Nucleated Red Blood Cells 0.0 % Estimated GFR () 194 mL/min Estimated GFR (Non- 160 mL/min Triglycerides Level 39 mg/dL (< 150) Test 09/09/24 05:59 09/07/24 11:27 09/07/24 10:58 Prothrombin Time 12.1 sec (9.3-11.8) Prothrombin Time INR 1.16 (0.9-1.15) Urine Color Light-yellow (Yellow) Urine Clarity Clear (Clear) Urine pH 6.0 (5.0-9.0) Urine Specific [place] 1.014 (1.001-1.035) Urine Protein Negative (Negative) Urine Ketones Negative (Negative) Urine Blood Negative /uL (Negative) Urine Nitrite Negative (Negative) Urine Bilirubin Negative (Negative) Urine Urobilinogen Normal mg/dL (Negative) Urine Leukocyte Esterase Negative /uL (Negative) Urine RBC <1 /hpf (0 - 3) Urine Microscopic WBC 1 /HPF (0-3) Urine Squamous Epithelial Cells Few /hpf (<5) Urine Bacteria None seen /hpf (None Seen) Urine Glucose Normal mg/dL (Normal) Lipase 32 U/L (12-53) Carcinoembryonic Antigen 1.12 ng/mL (<=5.0) Other Laboratory Tests 09/15/24 06:52 09/14/24 05:56 Brief Hx & Hospital Course: History of Present Illness Frankie Cason is a 64-year-old male that denies any past medical history who came in for abdominal pain. Patient states he had a routine, out patient colonoscopy in July and has been experiencing abdominal pain, bloating, and constipation since. He states he came to the ER in August for the same symptoms and was told he had diverticulitis and sent home. He followed up with GI for his colonoscopy results and was told he does not have diverticulitis. He states whenever he eats his abdomen becomes bloated, and he has constipation. CT completed with IV contrast shows a large cecal mass. Patient will be admitted for further testing, and GI consult. Course of hospitalization: Patient had general surgery consultation, for which the patient underwent exploratory laparotomy with removal of a large right cecal mass, as well as right hemicolectomy. 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 Osman, stating that they are still other test to be done for final report. Discussion was made with the patient regarding findings. Patient has had advancement with his diet, positive bowel movement, as well as ambulation without any difficulty, using front wheel walker. Discussion was made with oncologist, Dr. Danielle, with report giving to her. At this time the patient was will be discharged home and instructed to follow up with his PCP, general surgery, as well as oncologist at next available appointment. Patient will be prescribed pain management in the form of [place] 5/325 q.6 hours as needed pain. All questions answered. Physical examination General: Alert and Oriented x3. No acute distress. Well-nourished. Eyes: EOMI. Anicteric. HENT: Moist mucous membranes. Lungs: Clear to auscultation bilaterally. No accessory muscle use. Cardiovascular: Regular rate and rhythm. No murmur. No JVD. Abdomen: Soft, non-tender and non-distended. No palpable masses. Extremities: No edema. Non-tender. Skin: No rashes or lesions. Warm. Neurologic: No focal neurological deficits. CN II-XII grossly intact, but not individually tested. Psychiatric: Cooperative. Appropriate mood and affect. Total time spent with patient discussing and formulating plan of care: 35 minutes. This medical document was created using an electronic medical record system with [employer] dictation system. Although this document has been carefully reviewed, there may still be some phonetic and typographical errors. These areas are purely typographical due to imperfections of the software programs, and do not reflect any compromise in the patient's medical care. Consults/Reason for consult Gastroenterology: Abdominal mass General surgery: Abdominal mass Operations or Procedures Exploratory laparotomy with right hemicolectomy and excision of mass Condition at Discharge: Guarded Final Diagnosis/Problems List Abdominal mass, B-cell lymphoma Secondary diagnosis: -large colonic mass with obstruction -sepsis -recent history of colitis Acute hypoxic respiratory failure Discharge Disposition: Home Discharge Instruct/Medications Diet: Consistent carbohydrate, Cardiac 2g Na,low cholest Activity: No Restrictions, As Tolerated Follow Up/Referral: Follow up with Dr. Danielle, oncologist at next earliest appointment. Follow up with PCP, Dr. Masters in 1 -2 weeks Follow up with Dr. Tuyet Stubbs in 1-2 weeks Medications: [place] 5/325 q.6 hours as needed for [id number] pain 36 Discharge Statement: "Patient was advised to return to the ER or call 911 if any headaches, dizziness, shortness of breath, chest pain, abdominal pain, bleeding, fevers, or worsening of medical condition. Patient was counseled about treatment plan, medications, possible side effects, patientverbalized understanding. All questions were answered to the best of my ability. This discharge took greater then 30 minutes in planning, reviewing documentation, counseling the patient, and discussing with other team members." DME: Diagnosis: B-cell lymphoma ASSESSMENT ASSESSMENT Assessment Abdominal mass, B-cell lymphoma Date of Service: Sep 18, 2024 Billing Provider: CARMEN VILLALPANDO NP Common Visit Codes: [id number] DISCH DAY >30min CARMEN VILLALPANDO NP Sep 18, 2024 11:01
[2024-09-18 12:37] VITALS: BP 105/52; PULSE 60; RESP 18; TEMP 36.9; O2SAT 96
[2024-09-18 13:00] VITALS: BP 119/70; PULSE 88; RESP 18; TEMP 97.4; O2SAT 95
--- NOTE | 2024-09-18 14:35 | DVHPN2 ---
Progress Note - Dictate Date Seen: Sep 18, 2024 Medical Necessity Reason Pt with a Central, PICC or Fol: No Subjective Postop day 9. S/P laparotomy with large tumor removal No new complaints,, tolerating diet 2 BMs recorded I was notified by the pathologist that the preliminary diagnosis of the large tumor that was removed was a lymphoma Final immunos are still pending; possible retroperitoneal mass encasing the cecum vital signs Vital Sign Date Time Temp Pulse Resp B/P (MAP) Pulse Ox O2 Delivery O2 Flow Rate FiO2 09/18/24 13:00 97.4 88 18 119/70 (86) 95 97.4 09/18/24 08:00 Room Air* 0 21 Total Intake and Output 09/17/24 09/17/24 09/18/24 15:00 23:00 07:00 Intake Total 200 ml 900 ml 500 ml Output Total 225 ml Balance 200 ml 900 ml 275 ml medications Current Medications Medications Dose Ordered Sig/Uday Route Start Time Stop Time Status Last Admin Dose Admin Ondansetron HCl 4 mg Q4HP PRN IV 09/07/24 16:15 Metronidazole 100 ml @ 100 mls/hr Q8HR IV 09/07/24 22:00 09/18/24 05:50 100 MLS/HR Levofloxacin/ Dextrose 100 ml @ 100 mls/hr DAILY IV 09/09/24 10:00 09/18/24 09:46 100 MLS/HR Hydromorphone HCl 0.25 mg Q4HPRN PRN IV 09/10/24 07:30 09/16/24 18:12 0.25 MG Lorazepam 0.25 mg Q6HP PRN IV 09/10/24 07:30 09/10/24 11:08 0.25 MG Amino Acids 0 ml @ 0 mls/hr PER PHARMACY IV 09/10/24 12:45 UNV Sodium Chloride 10 ml QSHIFT@10,22 IV 09/11/24 22:00 09/18/24 10:00 10 ML Acetaminophen/ Hydrocodone Bitart 1 tab Q4HPRN PRN PO 09/14/24 15:30 09/18/24 05:58 1 TAB objective General Appearance: Alert, Oriented X3, Cooperative HEENT: Atraumatic, PERRLA Lungs: Clear to auscultation, Normal air movement Cardiovascular: Normal S1, Normal S2 Abdomen: Normal bowel sounds, dressing dry, binder in place Musculoskeletal: Normal sensory function, Normal motor function Skin: Dry, Intact Psych/Mental Status: Mental status NL, Mood NL laboratory and microbiology Laboratory Tests 09/15/24 06:52 09/14/24 05:56 Test 09/15/24 06:52 Range/Units Serum Glucose 138 H 74-106 mg/dL Problems(with codes): (1) Intractable abdominal pain (2) Lymphoma (3) Abnormal finding on GI tract imaging (4) Cecum mass (5) Abdominal pain (6) S/P exploratory laparotomy Prognosis Plan Discharge planning for today Encourage PT and ambulation Patient will need outpatient referral to Oncology Pending final immunostains patient will likely need chemotherapy Consider Port-A-Cath placement electively Dietary Evaluation Review Comments: 1) Advance PN to meet at least 75% estimated needs 2) advance to regular diet as medically feasible 3) Continue current plan of care Expected Outcomes/Goals: Pt will meet >75% estimated needs Fu 2-3 days Plan discussed with: Patient, Other (Nurse and Bowen) RUSS EDWARDS MD Sep 18, 2024 14:35
== END 2024-09-18 14:15 | disposition home or self-care (01) | DRG 853 ==
LOC: ER 09:33 → OVERFLOW 16:10 → WEST WING 21:20
PROVIDERS: ADMIT Nurse Practitioner Acute Care; ATTEND Nurse Practitioner Acute Care
PROC: 0DNW0ZZ Release Peritoneum, Open Approach (ICD-10-PCS; 2024-09-09)
PROC: 5A09357 Assistance with Respiratory Ventilation, Less than 24 Consecutive Hours, Continuous Positive Airway Pressure (ICD-10-PCS; 2024-09-09)
PROC: 0DTF0ZZ Resection of Right Large Intestine, Open Approach (ICD-10-PCS; principal; 2024-09-09 16:09)
PROC: 5A09357 Assistance with Respiratory Ventilation, Less than 24 Consecutive Hours, Continuous Positive Airway Pressure (ICD-10-PCS; 2024-09-10)
PROC: 02HV33Z Insertion of Infusion Device into Superior Vena Cava, Percutaneous Approach (ICD-10-PCS; 2024-09-11)
PROC: B548ZZA Ultrasonography of Superior Vena Cava, Guidance (ICD-10-PCS; 2024-09-11)
DX: A41.9 Sepsis, unspecified organism (principal); J96.01 Acute respiratory failure with hypoxia; C85.10 Unspecified B-cell lymphoma, unspecified site; K56.50 Intestinal adhesions [bands], unspecified as to partial versus complete obstruction; K59.00 Constipation, unspecified; K63.9 Disease of intestine, unspecified; E88.89 Other specified metabolic disorders; K76.0 Fatty (change of) liver, not elsewhere classified; G43.909 Migraine, unspecified, not intractable, without status migrainosus; Z79.2 Long term (current) use of antibiotics; Z79.899 Other long term (current) drug therapy; Z79.1 Long term (current) use of non-steroidal anti-inflammatories (NSAID); Z82.49 Family history of ischemic heart disease and other diseases of the circulatory system; Z86.0100 Personal history of colon polyps, unspecified
CPT/HCPCS: 36415; 36569; 71045; 74176; 74177; 76937; 80048; 80053; 80069; 81001; 82378; 82962; 83690; 83735; 84100; 84478; 85025; 85610; 86850; 86900; 86901; 93005; 94660; 96361; 96374; 96375; 97116; 97163; 97530; 99291; G0378; J0690; J1100; J1815; J1885; J1956; J2250; J2405; J2704; J3490; J7060; J7131

== ENCOUNTER 2024-09-23 11:27 | Emergency (ER) | payer OTHER ==
[~2024-09-23] VITALS: Ht 162.6 cm; Wt 74.9 kg
[~2024-09-23 11:27] MED LIST changes: -CEPH500C PO; +HYDR-4902 PO; -IBUP-1454 PO; -METH4PAK PO; -ZOFR4T PO
--- NOTE | 2024-09-23 12:04 | ED.PDOC ---
History of Present Illness HPI Comments 64-year-old male with history of diabetes brought in by family for evaluation of brown fluid discharge from his abdominal surgical wound. Patient underwent removal of an ileocecal mass, hemicolectomy, lysis of adhesions, and ileocolonic anastomosis on 09/09/[address] Juliane Stubbs. Patient states last night he began to have brown fluid discharge from the wound. He denies any worsening pain, redness, fever, nausea, vomiting, diarrhea or constipation. He states he is eating well and having normal bowel movements. Chief Complaint: Wound Check Time Seen by MD: 12:00 Primary Care Provider: CALEB Ho Notes: Nurses Notes, Medications, Allergies Allergies: Coded Allergies: NO KNOWN ALLERGIES (Unverified , 05/08/24) Home Meds Active Scripts Hydrocodone-Acetaminophen (Hydrocodone Bitartrate/AC 5-325 mg) 1 Tab Tab, 1 TAB PO Q6HP PRN for 7 Days, #28 TAB Prov:CARMEN VILLALPANDO NP 09/17/24 Promethazine-Dm (Promethazine Dm 6.25-15 mg/5Ml) 1 Marah Marah, 5 ML PO TID, #180 ML Prov:VINITA BRISENO 09/01/24 Pantoprazole Sodium Sesquihydr (Pantoprazole Sodium) 40 Mg Tab, 40 MG PO DAILY for 30 Days, #30 TAB Prov:TJ PALUMBO RESIDENT 07/23/24 Amoxicillin & Pot Clavulanate (Augmentin) 500 Mg Tab, 1 TAB PO BID for 5 Days, #10 TAB Prov:TJ PALUMBO RESIDENT 07/23/24 Reported Medications Acyclovir (ZOVIRAX TABLET) 400 Mg Tb, 800 MG PA PRN, TAB 07/14/24 Information Source: Patient Mode of Arrival: Ambulatory Severity: Moderate Timing: Days Duration: Since onset, Days Prehospital treatment: None Past Medical History PAST MEDICAL HISTORY: DM Surgical History (Other): Ileocecal mass removal, hemicolectomy, lysis of adhesions, ileocolonic anastomosis Family History Family History: Reviewed,noncontributory to illness, Unknown Social History Smoker: Non-Smoker Alcohol: Unknown Drugs: Denies Drug Use Lives In: Home Constitutional: reports: others (Excess fluid from wound); denies: chills, diaphoresis, fatigue, fever, malaise, sweats, weakness EENTM: denies: blurred vision, double vision, ear bleeding, ear discharge, ear drainage, ear pain, ear ringing, eye pain, eye redness, hearing loss, mouth pain, mouth swelling, nasal discharge, nose bleeding, nose congestion, nose pain, photophobia, tearing, throat pain, throat swelling, voice changes, others Respiratory: denies: cough, hemoptysis, orthopnea, SOB at rest, shortness of breath, SOB with excertion, stridor, wheezing, others Cardiovascular: denies: chest pain, dizzy spells, diaphoresis, Dyspnea on exertion, edema, irregular heart beat, left arm pain, lightheadedness, palpitations, PND, syncope, others Gastrointestinal: denies: abdomen distended, abdominal pain, blood streaked bowels, constipated, diarrhea, dysphagia, difficulty swallowing, hematemesis, melena, nausea, poor appetite, poor fluid intake, rectal bleeding, rectal pain, vomiting, others Genitourinary: denies: burning, dysuria, flank pain, frequency, hematuria, incontinence, penile discharge, penile sore, pain, testicle pain, testicle swelling, urgency, others Neurological: denies: dizziness, fainting, headache, left sided numbness, left sided weakness, numbness, paresthesia, pre-existing deficit, right sided nu mbness, right sided weakness, seizure, speech problems, tingling, tremors, weakness, others Musculoskeletal: denies: back pain, gout, joint pain, joint swelling, muscle pain, muscle stiffness, neck pain, others Integumetry: denies: bruises, change in color, change in hair/nails, dryness, laceration, lesions, lumps, rash, wounds, others Allergic/Immunocompromised: denies: Difficulty Healing, Frequent Infections, Hives, Itching, others Hematologic/Lymphatic: denies: anemia, blood clots, easy bleeding, easy bruising, swollen glands, others Endocrine: denies: excessive hunger, excessive sweating, excessive thirst, excessive urination, flushing, intolerance to cold, intolerance to heat, unexplained weight gain, unexplained weight loss, others Psychiatric: denies: anxiety, bipolar disorder, depression, hopeless, panic disorder, schizophrenia, sleepless, suicidal, others All Other Systems: Reviewed and Negative Physical Exam General Appearance: No Apparent Distress HEENT: Other (Pupils and face symmetric. Moist mucous membranes.) Neck: Full Range of Motion, Normal Inspection Respiratory: Lungs Clear, No Accessory Muscle Use, No Respiratory Distress, Normal Breath Sounds Cardiovascular: No Edema, No JVD, Regular Rate/Rhythm Breast Exam: Deferred Gastrointestinal: Non Tender, Soft Genitalia: Deferred Pelvic: Deferred Rectal: Deferred Extremities: Normal inspection, Normal range of motion, No pedal edema Neurologic: Alert (Oriented x4), Other (Ambulatory without difficulty using a walker) Cerebellar Function: NOT DONE Reflexes: NOT DONE Skin: Dry, Normal Color, Warm, Other (Midline lower abdominal surgical wound with raphael in place. No erythema or tenderness. Moderate brown fluid discharge from inferior aspect of wound.) Lymphatic: NOT DONE Was a procedure done? Was a procedure done?: Yes Sedation Sedation?: No Other Procedure Procedure Surgical wound packing Indication Wound infection Anesthetic None Prep Wound cleansing with Betadine Informed consent obtained: Yes Risks, benefits, and alternati: Yes Notes Inferior aspect of wound was packed with 1/2 inch iodoform gauze after culture was obtained. Patient tolerated the procedure well. External dressing was pa ged. 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 Brown fluid discharge from inside inferior aspect of wound. Rhythm strip independently interpreted by me: Sinus tach, rate 122, no ectopy. Wound cultures obtained ER course: I consulted Dr. Nevarez, who was covering for Dr. Tuyet Stubbs. He examined the patient in the ED and advised that the exam findings were consistent with a mild wound infection. He agreed with the ED plan and recommended packing the inferior aspect of the wound with iodoform and discharging the patient on po antibiotics. He advised that the patient follow-up with Dr. Stubbs as an outpatient. The wound was cleansed and the inferior portion was packed with iodoform gauze. Please see procedure note for details. On re-evaluation, patient stated he was comfortable and not in pain. Heart rate was normal. Repeat abdominal exam was benign. The external dressing was changed. Patient was advised regarding my impression, treatment plan and follow-up recommendations, specifically to return to ER in 2 days for wound check and packing change and to contact Dr. Stubbs's office for an appointment. He expressed understanding and agreed. Rx Cipro, Flagyl. Continue [place] prn pain. Time of 1ST Reevaluation: 12:30 Reevaluation 1ST: Unchanged Patient Education/Counseling: Diagnosis, Treatment, Prognosis Family Education/Counseling: No Family Present Departure 1 Departure Time of Disposition: 12:52 Impression: Primary Impression: Wound infection after surgery Disposition: HOME / SELF CARE / HOMELESS Condition: Stable Additional Instructions: Follow-up with Dr. Tuyet Stubbs. Contact his office for an appointment. Return to ER in 2 days for wound check and packing change. Return to ER immediately for fever, redness, pain, or any other concern. I have prescribed antibiotics. Continue [place] as needed for pain. e-Prescriptions Metronidazole (Flagyl) 500 Mg Tab 1 TAB PO TID for 10 Days, #30 TAB Prov: TEAGAN ASIF MD 09/23/24 Ciprofloxacin Hcl (Cipro) 500 Mg Tab 1 TAB PO BID for 10 Days, #20 TAB Prov: TEAGAN ASIF MD 09/23/24 Discharged With: Relative Critical Care Note Critical Care Time?: No Stability Stability form required: No Heart Score Heart Score: Heart Score Response (Comments) Value History N/A 0 EKG N/A 0 Age N/A 0 Risk Factors N/A 0 Troponin N/A 0 Total 0 I personally scribed for TEAGAN ASIF MD ([email or web address]) on 09/23/24 at 12:04. Electronically submitted by Melo Cooper ([email or web address]). TEAGAN ASIF MD Sep 23, 2024 12:04
[2024-09-23] MEDS ORDERED: CIPR-173 PO (12:54)
[2024-09-23] MEDS ORDERED: METR-344 PO (12:54)
[2024-09-23 13:51] VITALS: BP 130/84; PULSE 77; RESP 15; TEMP 98.8; O2SAT 96
== END 2024-09-23 13:48 | disposition home or self-care (01) ==
LOC: ER 11:27
DX: T81.41XA Infection following a procedure, superficial incisional surgical site, initial encounter (principal); E11.9 Type 2 diabetes mellitus without complications; Z79.899 Other long term (current) drug therapy; Z90.49 Acquired absence of other specified parts of digestive tract; X58.XXXA Exposure to other specified factors, initial encounter
CPT/HCPCS: 87077; 87186; 87205

== ENCOUNTER 2024-09-25 08:57 | Emergency (ER) | payer OTHER ==
[~2024-09-25] VITALS: Ht 162.6 cm; Wt 73.5 kg
[~2024-09-25 08:57] MED LIST changes: +CIPR-173 PO; +METR-344 PO
--- NOTE | 2024-09-25 09:08 | ED.PDOC ---
History of Present Illness HPI Comments 64-year-old male came to the ER because he has abdominal wound that needed to follow up. He had surgery for tumor removal on September 12. He was seen few days ago for discharge from the surgical site. Patient was placed on antibiotics sent home for follow up. He continues to have discharge from the wound. Denies hypertension diabetes. Denies abdominal pain nausea vomiting. Denies any other symptoms. Time Seen by MD: 09:01 Primary Care Provider: CALEB Ho Notes: Nurses Notes, Medications Allergies: Coded Allergies: NO KNOWN ALLERGIES (Unverified , 05/08/24) Home Meds Active Scripts Metronidazole (Flagyl) 500 Mg Tab, 1 TAB PO TID for 10 Days, #30 TAB Prov:TEAGAN ASIF MD 09/23/24 Ciprofloxacin Hcl (Cipro) 500 Mg Tab, 1 TAB PO BID for 10 Days, #20 TAB Prov:TEAGAN ASIF MD 09/23/24 Hydrocodone-Acetaminophen (Hydrocodone Bitartrate/AC 5-325 mg) 1 Tab Tab, 1 TAB PO Q6HP PRN for 7 Days, #28 TAB Prov:CARMEN VILLALPANDO NP 09/17/24 Promethazine-Dm (Promethazine Dm 6.25-15 mg/5Ml) 1 Marah Marah, 5 ML PO TID, #180 ML Prov:VINITA BRISENO 09/01/24 Pantoprazole Sodium Sesquihydr (Pantoprazole Sodium) 40 Mg Tab, 40 MG PO DAILY for 30 Days, #30 TAB Prov:TJ PALUMBO RESIDENT 07/23/24 Amoxicillin & Pot Clavulanate (Augmentin) 500 Mg Tab, 1 TAB PO BID for 5 Days, #10 TAB Prov:TJ PALUMBO RESIDENT 07/23/24 Reported Medications Acyclovir (ZOVIRAX TABLET) 400 Mg Tb, 800 MG PA PRN, TAB 07/14/24 Information Source: Patient Mode of Arrival: Ambulatory Severity: Moderate Timing: Days Duration: Since onset Past Medical History PAST MEDICAL HISTORY: DM (Prediabetic) Surgical History: Denies all surgeries Family History Family History: Reviewed,noncontributory to illness, Unknown Social History Smoker: Non-Smoker Alcohol: Unknown Drugs: Denies Drug Use Lives In: Home Constitutional: denies: chills, diaphoresis, fatigue, fever, malaise, sweats, weakness, others EENTM: denies: blurred vision, double vision, ear bleeding, ear discharge, ear drainage, ear pain, ear ringing, eye pain, eye redness, hearing loss, mouth pain, mouth swelling, nasal discharge, nose bleeding, nose congestion, nose hang n, photophobia, tearing, throat pain, throat swelling, voice changes, others Respiratory: denies: cough, hemoptysis, orthopnea, SOB at rest, shortness of breath, SOB with excertion, stridor, wheezing, others Cardiovascular: denies: chest pain, dizzy spells, diaphoresis, Dyspnea on exertion, edema, irregular heart beat, left arm pain, lightheadedness, palpitations, PND, syncope, others Gastrointestinal: denies: abdomen distended, abdominal pain, blood streaked bowels, constipated, diarrhea, dysphagia, difficulty swallowing, hematemesis, melena, nausea, poor appetite, poor fluid intake, rectal bleeding, rectal pain, vomiting, others Genitourinary: denies: burning, dysuria, flank pain, frequency, hematuria, incontinence, penile discharge, penile sore, pain, testicle pain, testicle swelling, urgency, others Neurological: denies: dizziness, fainting, headache, left sided numbness, left sided weakness, numbness, paresthesia, pre-existing deficit, right sided numbness, right sided weakness, seizure, speech problems, tingling, tremors, weakness, others Musculoskeletal: denies: back pain, gout, joint pain, joint swelling, muscle pain, muscle stiffness, neck pain, others Integumetry: reports: wounds (Surgical); denies: bruises, change in color, change in hair/nails, dryness, laceration, lesions, lumps, rash, others Hematologic/Lymphatic: denies: anemia, blood clots, easy bleeding, easy bruising, swollen glands, others Endocrine: denies: excessive hunger, excessive sweating, excessive thirst, excessive urination, flushing, intolerance to cold, intolerance to heat, unexplained weight gain, unexplained weight loss, others Psychiatric: denies: anxiety, bipolar disorder, depression, hopeless, panic disorder, schizophrenia, sleepless, suicidal, others Physical Exam General Appearance: Moderate Distress HEENT: Normal ENT Inspection, Pharynx Normal, TMs Normal Neck: Full Range of Motion, Non-Tender, Normal, Normal Inspection Respiratory: Chest Non-Tender, Lungs Clear, No Accessory Muscle Use, No Respiratory Distress, Normal Breath Sounds Cardiovascular: No Edema, No JVD, No Murmur, No Gallop, Normal Peripheral Pulses, Regular Rate/Rhythm Breast Exam: Deferred Gastrointestinal: No Organomegaly, Non Tender, No Pulsatile Mass, Normal Bowel Sounds, Soft Genitalia: Deferred Pelvic: Deferred Rectal: Deferred Extremities: No calf tenderness, Normal capillary refill, Normal inspection, Normal range of motion, Non-tender, No pedal edema Musculoskeletal : Apperance: Normal Neurologic: Alert, composite assembler II-XII nml as Tested, No Motor Deficits, Normal Affect, Normal Mood, No Sensory Deficits Cerebellar Function: Normal Reflexes: Normal Skin: Wounds (Surgical wound had to be opened healing well) Peripheral Pulses: 3+ Radial (R), 3+ Radial (L) Lymphatic: No Adenopathy Was a procedure done? Was a procedure done?: Yes Sedation Sedation?: No Other Procedure Procedure Packing of surgical wound Indication Abscess Anesthetic n Prep y Informed consent obtained: No Risks, benefits, and alternati: Yes Notes Wound healing well Differential Dx Considerations may include: Cellulitis Electrolyte imbalance X-Ray, Labs, Meds, VS Patient alert. Came in because of a wound check. There is packing in the wound that was done few days ago. Vitals stable. Answering questions. On examination wound is clean no sign of any infection. New packing in the wound. No leg swelling pain No chest pain. No shortness a breath. Continue current antibiotics. Reviewed his previous visit. Explained to the patient. Was told to follow up with his primary care physician. Was told to come back if there is any problem. Time of 1ST Reevaluation: 09:11 Reevaluation 1ST: Improved Patient Education/Counseling: Diagnosis, Treatment, Prognosis, Need For Follow Up Family Education/Counseling: No Family Present Departure 1 Departure Time of Disposition: 09:13 Impression: Primary Impression: Wound infection after surgery Disposition: 01 HOME / SELF CARE / HOMELESS Condition: Good Discharged With: Self Critical Care Note Critical Care Time?: No Stability Stability form required: No Heart Score Heart Score: Heart Score Response (Comments) Value History N/A 0 EKG N/A 0 Age N/A 0 Risk Factors N/A 0 Troponin N/A 0 Total 0 MORGAN,ADELFO MD Sep 25, 2024 09:08
[2024-09-25 09:29] VITALS: BP 149/77; PULSE 104; RESP 20; TEMP 99.2; O2SAT 95
== END 2024-09-25 09:28 | disposition home or self-care (01) ==
LOC: ER 08:57
DX: T81.41XA Infection following a procedure, superficial incisional surgical site, initial encounter (principal); E11.9 Type 2 diabetes mellitus without complications; Z79.899 Other long term (current) drug therapy; X58.XXXA Exposure to other specified factors, initial encounter

== ENCOUNTER 2024-09-27 11:56 | Emergency (ER) | payer OTHER ==
[~2024-09-27] VITALS: Ht 162.6 cm; Wt 73.3 kg
--- NOTE | 2024-09-27 12:22 | ED.PDOC ---
History of Present Illness HPI Comments 64 y/o M, with PMHx of HLD and DM presents to the ED for CC of wound check. Patient states, that he had a lipoma removal on 09/09/24 with and has been experiencing drainage from the operative site x4days. Patient relays, that he was prescribe Keflex after surgery; discontinued use due to increased nausea. Patient complains of current 3/10 pain to operative site. Spoke to at 1217; patient was relayed to office for further evaluation at this time. Chief Complaint: Wound Check Time Seen by MD: 12:14 Primary Care Provider: CALEB Ho Notes: Nurses Notes, Medications, Allergies Allergies: Coded Allergies: NO KNOWN ALLERGIES (Unverified , 05/08/24) Home Meds Active Scripts Metronidazole (Flagyl) 500 Mg Tab, 1 TAB PO TID for 10 Days, #30 TAB Prov:TEAGAN ASIF MD 09/23/24 Ciprofloxacin Hcl (Cipro) 500 Mg Tab, 1 TAB PO BID for 10 Days, #20 TAB Prov:TEAGAN ASIF MD 09/23/24 Hydrocodone-Acetaminophen (Hydrocodone Bitartrate/AC 5-325 mg) 1 Tab Tab, 1 TAB PO Q6HP PRN for 7 Days, #28 TAB Prov:CARMEN VILLALPANDO NP 09/17/24 Promethazine-Dm (Promethazine Dm 6.25-15 mg/5Ml) 1 Marah Marah, 5 ML PO TID, #180 ML Prov:VINITA BRISENO 09/01/24 Pantoprazole Sodium Sesquihydr (Pantoprazole Sodium) 40 Mg Tab, 40 MG PO DAILY for 30 Days, #30 TAB Prov:TJ PALUMBO RESIDENT 07/23/24 Amoxicillin & Pot Clavulanate (Augmentin) 500 Mg Tab, 1 TAB PO BID for 5 Days, #10 TAB Prov:TJ PALUMBO RESIDENT 07/23/24 Reported Medications Acyclovir (ZOVIRAX TABLET) 400 Mg Tb, 800 MG PA PRN, TAB 07/14/24 Information Source: Patient Mode of Arrival: Ambulatory Severity: Moderate Timing: Days Duration: Since onset Prehospital treatment: None Associated signs and symptoms Mild drainage from the stapled wound in the mid abdominal area Past Medical History PAST MEDICAL HISTORY: DM, High Lipids Surgical History (Other): lipoma removal Family History Family History: Reviewed,noncontributory to illness, Unknown Social History Smoker: Non-Smoker Alcohol: Denies ETOH Use Drugs: Denies Drug Use Lives In: Home Constitutional: denies: chills, diaphoresis, fatigue, fever, malaise, sweats, weakness, others EENTM: denies: blurred vision, double vision, ear bleeding, ear discharge, ear drainage, ear pain, ear ringing, eye pain, eye redness, hearing loss, mouth pain, mouth swelling, nasal discharge, nose bleeding, nose congestion, nose pain, photophobia, tearing, throat pain, throat swelling, voice changes, others Respiratory: denies: cough, hemoptysis, orthopnea, SOB at rest, shortness of breath, SOB with excertion, stridor, wheezing, others Cardiovascular: denies: chest pain, dizzy spells, diaphoresis, Dyspnea on exertion, edema, irregular heart beat, left arm pain, lightheadedness, palpitations, PND, syncope, others Gastrointestinal: denies: abdomen distended, abdominal pain, blood streaked bowels, constipated, diarrhea, dysphagia, difficulty swallowing, hematemesis, melena, nausea, poor appetite, poor fluid intake, rectal bleeding, rectal pain, vomiting, others Genitourinary: denies: burning, dysuria, flank pain, frequency, hematuria, incontinence, penile discharge, penile sore, pain, testicle pain, testicle swelling, urgency, others Neurological: denies: dizziness, fainting, headache, left sided numbness, left sided weakness, numbness, paresthesia, pre-existing deficit, right sided numbness, right sided weakness, seizure, speech problems, tingling, tremors, weakness, others Musculoskeletal: denies: back pain, gout, joint pain, joint swelling, muscle pain, muscle stiffness, neck pain, others Integumetry: reports: others (postoperative wound drainage); denies: bruises, change in color, change in hair/nails, dryness, laceration, lesions, lumps, rash, wounds Allergic/Immunocompromised: denies: Difficulty Healing, Frequent Infections, Hives, Itching, others Hematologic/Lymphatic: denies: anemia, blood clots, easy bleeding, easy bruising, swollen glands, others Endocrine: denies: excessive hunger, excessive sweating, excessive thirst, excessive urination, flushing, intolerance to cold, intolerance to heat, unexplained weight gain, unexplained weight loss, others Psychiatric: denies: anxiety, bipolar disorder, depression, hopeless, panic disorder, schizophrenia, sleepless, suicidal, others All Other Systems: Reviewed and Negative Physical Exam General Appearance: No Apparent Distress HEENT: Normal ENT Inspection, Pharynx Normal, TMs Normal Neck: Full Range of Motion, Non-Tender, Normal, Normal Inspection Respiratory: Chest Non-Tender, Lungs Clear, No Accessory Muscle Use, No Respiratory Distress, Normal Breath Sounds Cardiovascular: No Edema, No JVD, No Murmur, No Gallop, Normal Peripheral Pulses, Regular Rate/Rhythm Breast Exam: Deferred Gastrointestinal: No Organomegaly, No Pulsatile Mass, Normal Bowel Sounds, Soft, Tenderness (The patient was having some tenderness around the mid abdominal stapled wound. There is some packing to the lower area with minimal amount of drainage.) Genitalia: Deferred Pelvic: Deferred Rectal: Deferred Extremities: No calf tenderness, Normal capillary refill, Normal inspection, Normal range of motion, Non-tender, No pedal edema Musculoskeletal : Apperance: Normal Neurologic: Alert, over short and damage clerk II-XII nml as Tested, No Motor Deficits, Normal Affect, Normal Mood, No Sensory Deficits Cerebellar Function: Normal Reflexes: Normal Skin: Dry, Normal Color, Warm Lymphatic: No Adenopathy Was a procedure done? Was a procedure done?: No Differential Dx Considerations may include: postoperative wound infection Time of 1ST Reevaluation: 12:44 Reevaluation 1ST: Unchanged Patient Education/Counseling: Diagnosis, Treatment, Prognosis, Need For Follow Up Family Education/Counseling: No Family Present Departure 1 Departure Time of Disposition: 12:24 Impression: Primary Impression: Wound infection after surgery Additional Impression: Abdominal pain Qualified Codes: R10.9 - Unspecified abdominal pain Disposition: 01 HOME / SELF CARE / HOMELESS Condition: Fair Discharged With: Self Critical Care Note Critical Care Time?: No Stability Stability form required: No Heart Score Heart Score: Heart Score Response (Comments) Value History N/A 0 EKG N/A 0 Age N/A 0 Risk Factors N/A 0 Troponin N/A 0 Total 0 I personally scribed for ZAKI ZELAYA MD ([email or web address]) on 09/27/24 at 12:22. Electronically submitted by Luna Bailey ([email or web address]). ZAKI ZELAYA MD Sep 27, 2024 12:22
[2024-09-27 13:05] LABS: Basophils # (auto) 0.2 10 ^3/uL (0-0.2); Eosinophils # (auto) 0.3 10 ^3/uL (0-0.8); Lymphocytes # (auto) 1.6 10 ^3/uL (0.4-5.4)
[2024-09-27 13:08] LABS: Basophils % (auto) 2.6 % (0.0-2.0); Eosinophils % (auto) 3.7 % (0.0-7.0); Hematocrit 38.7 % (41.0-53.0); Hemoglobin 13.2 g/dL (13.5-17.5); Mean Corpuscular Hemoglobin 27.7 pg (28.0-32.0); Mean Corpuscular Volume 81.7 fL (80.0-100.0); Monocytes # (auto) 1.1 10 ^3/uL (0-1.3); Monocytes % (auto) 13.9 % (0.0-12.0); Neutrophils # (auto) 4.8 10 ^3/uL (1.6-8.6); Neutrophils % (auto) 59.8 % (37.0-80.0); Nucleated Red Blood Cells % 0.1 %; Platelet Count (auto) 612 10^3/uL (140-450); Red Blood Cells 4.74 10^6/uL (4.5-5.90); Red Cell Distribution Width 14.6 % (11.8-14.3)
[2024-09-27 13:13] LABS: Anion Gap 8 (5-15); Calcium 9.4 mg/dL (8.7-10.4); Carbon Dioxide 26 mmol/L (20-31); Chloride 102 mmol/L (98-107); Potassium 3.9 mmol/L (3.5-5.1); Sodium 136 mmol/L (136-145)
[2024-09-27 13:18] LABS: BUN/Creatinine Ratio 20.5 (10.0-20.0); Blood Urea Nitrogen 15 mg/dL (9-23); Glucose 103 mg/dL (74-106)
[2024-09-27 13:43] VITALS: RESP 18; O2SAT 98
[2024-09-27] MEDS: IOHEXOL 300 MG/ML 100ML BOTTLE IJ ONE (13:48)
[2024-09-27] MEDS ORDERED: LEVO500T91 PO (14:31)
--- NOTE | 2024-09-27 14:46 | DVH ---
Exam: CT CT AB PEL WITH IV CON ONLY History: pain and infection COMPARISON: CT CT AB PEL WITH ORAL CON ONLY on DOS: 09/08/24, CT CT AB PEL WITH IV CON ONLY on DOS: 09/07 Technique: Multidetector spiral CT of the abdomen and pelvis was performed from lung bases to pubic s ymphysis. Intravenous contrast was administered during this examination. Portal venous imaging was o btained. Axial, coronal and sagittal multiplanar reformats were performed by the technologist on a achvr workstation. Radiation Dose : 1. Abdomen/Pelvis: CTDIvol 10.86mGy, DLP 705.08 mGy*cm. Findings: Lung Bases: Dependent atelectasis. Liver: The liver is normal in size. No focal lesions. Normal hepatic vascular enhancement. Gallbladder and Biliary Tree: Unremarkable Spleen: Unremarkable Pancreas: The pancreas is normal in appearance without focal lesions or abnormal enhancement. Adrenal Glands: Unremarkable Kidneys: No hydronephrosis. 3.5 cm area of hypoattenuation abutting the posterior aspect of the rig ht kidney possibly representing a perinephric hematoma. 3.4 cm area of hypoattenuation abutting the p osterior inferior left kidney. Bladder: Unremarkable Bowel: The stomach is grossly normal in appearance. Postsurgical changes of the colon. The appendix i s not visualized; however, no secondary findings of acute appendicitis identified. Ascites: Absent Lymphadenopathy: No mesenteric, retroperitoneal or periportal lymphadenopathy. Abdominal Wall and Mesentery: 5.6 cm hypoattenuating soft-tissue inferior and posterior to the 3rd po rtion of the duodenum abutting the IVC. 5.0 cm soft-tissue density structure in the right pericolic gutter . Vasculature: The visualized abdominal aorta is normal in size and caliber. Abdominal and pelvic vess els demonstrate normal enhancement. Pelvic Organs: Unremarkable Musculoskeletal: No aggressive focal bony lesions, acute fractures or dislocation. IMPRESSION: 5.6 cm soft-tissue structure abutting the posterior and inferior aspect of the 3rd portion of the duo denum and IVC ; indeterminate. Bilateral perinephric soft-tissue densities measuring 3.5 cm on the right and 3.4 cm on the left; ind eterminate. 5.0 cm soft-tissue density in the right pericolic gutter. Overall, findings could include worsening multifocal neoplasm such as lymphoma versus multifocal chuy spencer. Radiation optimization: All CT scans at this facility use at least one of these dose optimization joya hniques: automated exposure control mA and/or kV adjustment per patient size (includes targeted exam s where dose is matched to clinical indication) or iterative reconstruction.
--- NOTE | 2024-09-27 15:03 | DVHINCON2 ---
Date of service: Sep 27, 2024 Family History: FH: myocardial infarction G8 FATHER FH: ovarian cancer G8 MOTHER Allergies: Coded Allergies: NO KNOWN ALLERGIES (Unverified , 05/08/24) Home Meds Active Scripts Levofloxacin Hemihydrate (LEVAQUIN 500 MG) 500 Mg Tab, 1 TAB PO DAILY, #7 TAB Prov:ZAKI ZELAYA MD 09/27/24 Metronidazole (Flagyl) 500 Mg Tab, 1 TAB PO TID for 10 Days, #30 TAB Prov:TEAGAN ASIF MD 09/23/24 Ciprofloxacin Hcl (Cipro) 500 Mg Tab, 1 TAB PO BID for 10 Days, #20 TAB Prov:TEAGAN ASIF MD 09/23/24 Hydrocodone-Acetaminophen (Hydrocodone Bitartrate/AC 5-325 mg) 1 Tab Tab, 1 TAB PO Q6HP PRN for 7 Days, #28 TAB Prov:CARMEN VILLALPANDO CHIEF SPECIALIST [employer]ED 09/17/24 Promethazine-Dm (Promethazine Dm 6.25-15 mg/5Ml) 1 Marah Marah, 5 ML PO TID, #180 ML Prov:VINITA BRISENO 09/01/24 Pantoprazole Sodium Sesquihydr (Pantoprazole Sodium) 40 Mg Tab, 40 MG PO DAILY for 30 Days, #30 TAB Prov:TJ PALUMBO RESIDENT 07/23/24 Amoxicillin & Pot Clavulanate (Augmentin) 500 Mg Tab, 1 TAB PO BID for 5 Days, #10 TAB Prov:[facility] 07/23/24 Reported Medications Acyclovir (ZOVIRAX TABLET) 400 Mg Tb, 800 MG PA PRN, TAB 07/14/24 Vital Signs Vital Signs Date Time Temp Pulse Resp B/P (MAP) Pulse Ox O2 Delivery O2 Flow Rate FiO2 09/27/24 13:45 98.2 122 18 132/78 (96) 93 98.2 09/27/24 13:43 Room Air* 0 21 Labs/Diagnostic Data Labs Test 09/27/24 12:44 Range/Units White Blood Count 8.0 4.4-10.8 10^3/uL Red Blood Count 4.74 4.5-5.90 10^6/uL Hemoglobin 13.2 L 13.5-17.5 g/dL Hematocrit 38.7 L 41.0-53.0 % Mean Corpuscular Volume 81.7 80.0-100.0 fL Mean Corpuscular Hemoglobin 27.7 L 28.0-32.0 pg Mean Corpuscular Hemoglobin Concent 34.0 32.0-36.0 g/dL Red Cell Distribution Width 14.6 H 11.8-14.3 % Platelet Count 612 H 140-450 10^3/uL Mean Platelet Volume 7.0 6.9-10.8 fL Neutrophils (%) (Auto) 59.8 37.0-80.0 % Lymphocytes (%) (Auto) 20.0 10.0-50.0 % Monocytes (%) (Auto) 13.9 H 0.0-12.0 % Eosinophils (%) (Auto) 3.7 0.0-7.0 % Basophils (%) (Auto) 2.6 H 0.0-2.0 % Neutrophils # (Auto) 4.8 1.6-8.6 10 ^3/uL Lymphocytes # (Auto) 1.6 0.4-5.4 10 ^3/uL Monocytes # (Auto) 1.1 0-1.3 10 ^3/uL Eosinophils # (Auto) 0.3 0-0.8 10 ^3/uL Basophils # (Auto) 0.2 0-0.2 10 ^3/uL Nucleated Red Blood Cells 0.1 % Sodium Level 136 136-145 mmol/L Potassium Level 3.9 3.5-5.1 mmol/L Chloride Level 102 98-107 mmol/L Carbon Dioxide Level 26 20-31 mmol/L Anion Gap 8 5-15 Blood Urea Nitrogen 15 9-23 mg/dL Creatinine 0.73 0.700-1.30 mg/dL Glomerular Filtration Rate Calc 103 >90 mL/min BUN/Creatinine Ratio 20.5 H 10.0-20.0 Serum Glucose 103 74-106 mg/dL Calcium Level 9.4 8.7-10.4 mg/dL Assessment [id number] AFEBRILE VSS ABD SOFT MILD LOWER WOUND DRAINAGE SEROMA PACKING DONE CT SCAN POST CHANGES NO AC FINDINGS NOTED WBC WNL ARABELLA DIET BM + NO COMPLICATIONS CLEARED FOR DISCHARGE INSTRUCTIONS RE DIET ACTIVITY ABX, F/UP GIVEN Plan discussed with: Patient, Other ASHER EDWARDS MD Sep 27, 2024 15:03
[2024-09-27 16:05] VITALS: BP 107/68; PULSE 112; RESP 17; TEMP 98.2; O2SAT 96
--- NOTE | 2024-09-27 21:35 | DVHINCON2 ---
DATE OF CONSULTATION: 09/27/2024 HISTORY OF PRESENT ILLNESS: He is a 64-year-old male with a past medical history of HLD and diabetes mellitus, presenting to the emergency room with drainage from the lower portion of his wound. He is status post laparotomy with right colon resection, ileal colostomy anastomosis from which he recovered and was discharged with no complications. He now returns with this drainage. No abdominal pain. No nausea or vomiting. No fever. He is having bowel activity with no problems. PAST MEDICAL HISTORY: Referred to records. PHYSICAL EXAMINATION: VITAL SIGNS: Stable. He is afebrile. GENERAL: There is no evidence of pallor, sinus, or jaundice. NECK: Supple, nontender with no thyromegaly or lymphadenopathy. CHEST AND LUNGS: Clear. HEART: Within normal limits. ABDOMEN: Soft. He has a lower portion of the wound drained in the emergency room and possibility of a seroma and a packing gauze applied, dressing were applied. There are no complications other than that. CT scan also was done. His white cell count was 8. 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 There is a possibility of a postoperative hematoma close to the duodenum as well as in the right paracolic gutter. At this point no acute surgical interventions were indicated. So, the plan would be is to manage the drainage with antibiotics and wound care as indicated to the patient. Follow up in my office in 3-4 days to remove the packing. He also needs antibiotics as well. This was discussed with Dr. Cosby in the Emergency Room and he was cleared for discharge. MD NELLIE Cordero/CHAR TID: [id number] RECEIPT: [id number] cc: Ulises Cosby MD
== END 2024-09-27 16:17 | disposition home or self-care (01) ==
LOC: ER 12:16
DX: T81.41XA Infection following a procedure, superficial incisional surgical site, initial encounter (principal); E11.9 Type 2 diabetes mellitus without complications; E78.5 Hyperlipidemia, unspecified; Z79.899 Other long term (current) drug therapy; Z93.3 Colostomy status; Y92.89 Other specified places as the place of occurrence of the external cause
CPT/HCPCS: 36415; 74177; 80048; 85025; 99285; Q9967